=== PATIENT | female | born 1955 | race Caucasian/White ===

== ENCOUNTER 2017-02-23 11:32 | Outpatient (CLI) ==
[2013-05-06 10:41] VITALS: TEMP 98
[2017-02-23 12:05] LABS: CREATININE 1.07 mg/dL (0.60-1.30)
== END 2017-02-23 11:33 | disposition home or self-care (01) ==
LOC: LAB 11:32
PROVIDERS: ATTEND Student in an Organized Health Care Education/Training Program
DX: G56.00 Carpal tunnel syndrome, unspecified upper limb (principal)
CPT/HCPCS: 36415; 82565; 84520

== ENCOUNTER 2017-05-12 11:43 | Inpatient (IN) | payer OTHER ==
[2017-05-12] MEDS ORDERED: TYLENOL PO PRN (12:04)
[2017-05-12] MEDS ORDERED: NITROSTAT SL PRN (12:04)
[2017-05-12] MEDS ORDERED: MORPHINE 4 MG/ML SYRINGE IVP PRN (12:04)
[2017-05-12] MEDS ORDERED: ATROPINE SULFATE PFS IVP PRN (12:04)
[2017-05-12 12:30] LABS: BASOPHILS % (AUTO) 0.4 % (0.0-3.0); EOSINOPHILS # (AUTO) 0.2 K/ul (0.0-0.7); EOSINOPHILS % (AUTO) 5.1 % (0.0-7.0); HEMATOCRIT 34.1 % (37.0-47.0); HEMOGLOBIN 11.4 g/dl (12.0-16.0); IMMATURE GRANULOCYTE % (AUTO) 0.2 % (0.0-5.0); LYMPHOCYTES # (AUTO) 2.4 K/uL (0.60-3.4); LYMPHOCYTES % (AUTO) 52.9 (10.0-50.0); MEAN CORPUSCULAR HEMOGLOBIN 29.6 pg (27.0-31.0); MEAN CORPUSCULAR HGB CONC 33.4 (31.8-35.4); MEAN CORPUSCULAR VOLUME 88.6 fl (81.0-99.0); MONOCYTES # (AUTO) 0.3 K/uL (0.4-2.0); MONOCYTES % (AUTO) 5.5 (0-10); NEUTROPHILS # (AUTO) 1.6 K/ul (2.0-6.9); NEUTROPHILS % (AUTO) 35.9; PLATELET COUNT 215 10^3/uL (140-440); RED BLOOD COUNT 3.85 10^6/ul (4.20-5.40); WHITE BLOOD COUNT 4.54 K/ul (4.6-10.2)
[2017-05-12 12:50] LABS: ALBUMIN 3.9 g/dL (3.4-5.0); ALBUMIN/GLOBULIN RATIO 1.18; BILIRUBIN,TOTAL 0.46 mg/dL (0.00-1.20); CALCIUM 9.4 mg/dL (8.2-10.2); CREATININE 1.5 mg/dL (0.60-1.30); TOTAL PROTEIN 7.2 g/dL (5.8-8.1)
[2017-05-12 13:06] LABS: CREATINE KINASE 124 U/L; MYOGLOBIN 47 ng/ml
[2017-05-12] MEDS: DEXTROSE 5%-1/2NS IV SOLUTION 1,000 ML IV SCH (13:08)
[2017-05-12 13:10] VITALS: BMI 29.9
[2017-05-12] MEDS: NORCO 5-325 PO PRN ×2 (14:17→22:25)
--- NOTE | 2017-05-12 14:18 | DI ---
EXAM: Chest one view HISTORY: Hypotension COMPARISON: 04/18/2016 TECHNIQUE: Single view of the chest was performed FINDINGS: The lungs are clear. There is no pleural effusion or pneumothorax. The heart is normal in size. The mediastinal contour is normal. There are no acute abnormalities of the bones. Bilater al shoulder arthroplasty. Cervical spinal fusion hardware. IMPRESSION: No acute cardiopulmonary process.
--- NOTE | 2017-05-12 14:43 | US ---
EXAM: Renal ultrasound HISTORY: Dehydration, hypotension TECHNIQUE: Dhillon scale and color Doppler imaging of the kidneys was performed. Comparison 11/24/2008. FINDINGS: The right kidney measures 10.3 cm in length. There is no hydronephrosis. There is a sma ll cyst seen within the upper pole of the right kidney measuring 1.1 cm maximum. The left kidney measures 10.7 cm in length. There is no hydronephrosis. Images obtained through the pelvis demonstrate a normal appearance of the urinary bladder. IMPRESSION: There is no obstructive uropathy. Small cyst seen within the upper pole of the right kidney measuring up to 1.1 cm.
--- NOTE | 2017-05-12 14:47 | US ---
EXAM: Ultrasound venous Doppler right and left lower extermity HISTORY: Leg pain COMPARISON: None TECHNIQUE: Venous duplex ultrasound of the right and left lower extremity was performed using color , baker-scale, and Doppler flow imaging. FINDINGS: There is normal color flow and compression of the right and left common femoral, greater saphenous, profunda femoral, femoral, popliteal, peroneal, (right) posterior tibial, and (right) ant erior tibial veins without evidence of intraluminal thrombus. Left anterior tibial and posterior tib ial veins not visualized and left peroneal vein partially visualized. IMPRESSION: No right or left lower extremity deep venous thrombosis at the visualized levels.
[2017-05-12] MEDS ORDERED: NORCO 5-325 PO SCH (21:00)
[2017-05-12 21:22] LABS: TROPONIN I 0.01 ng/ml (0.0000-0.4000)
[2017-05-12] MEDS: VISTARIL INJ IM PRN (22:23)
[2017-05-13] MEDS: DEXTROSE 5%-1/2NS IV SOLUTION 1,000 ML IV SCH ×3 (02:05→13:02)
[2017-05-13 04:26] LABS: BASOPHILS % (AUTO) 0.5 % (0.0-3.0); EOSINOPHILS # (AUTO) 0.3 K/ul (0.0-0.7); EOSINOPHILS % (AUTO) 6.1 % (0.0-7.0); HEMATOCRIT 31.3 % (37.0-47.0); HEMOGLOBIN 10.3 g/dl (12.0-16.0); IMMATURE GRANULOCYTE % (AUTO) 0.2 % (0.0-5.0); LYMPHOCYTES # (AUTO) 2.6 K/uL (0.60-3.4); LYMPHOCYTES % (AUTO) 62.9 (10.0-50.0); MEAN CORPUSCULAR HEMOGLOBIN 29.5 pg (27.0-31.0); MEAN CORPUSCULAR HGB CONC 32.9 (31.8-35.4); MEAN CORPUSCULAR VOLUME 89.7 fl (81.0-99.0); MONOCYTES # (AUTO) 0.3 K/uL (0.4-2.0); MONOCYTES % (AUTO) 6.1 (0-10); NEUTROPHILS % (AUTO) 24.2; PLATELET COUNT 172 10^3/uL (140-440); RED BLOOD COUNT 3.49 10^6/ul (4.20-5.40); WHITE BLOOD COUNT 4.07 K/ul (4.6-10.2)
[2017-05-13 04:47] LABS: ALBUMIN 3.1 g/dL (3.4-5.0); ALBUMIN/GLOBULIN RATIO 1.15; ANION GAP 12.1; BILIRUBIN,TOTAL 0.34 mg/dL (0.00-1.20); BUN/CREATININE RATIO 14.56; CALCIUM 8.6 mg/dL (8.2-10.2); CREATININE 1.51 mg/dL (0.60-1.30); POTASSIUM 4.1 mmol/L (3.5-5.10); TOTAL PROTEIN 5.8 g/dL (5.8-8.1)
[2017-05-13 05:34] LABS: BILIRUBIN,URINE Negative (NEGATIVE); KETONES,URINE Negative (NEGATIVE); LEUKOCYTE ESTERASE ,URINE 1+ (NEGATIVE); NITRITE,URINE Negative (NEGATIVE); PROTEIN,URINE Negative (NEGATIVE); URINE, BLOOD Negative (NEGATIVE)
[2017-05-13 05:35] LABS: ADD URINE MICROSCOPIC YES
[2017-05-13 05:51] LABS: BACTERIA,URINE TRACE (NOT PRESENT)
[2017-05-13] MEDS ORDERED: ASPIRIN EC PO SCH (08:00)
[2017-05-13] MEDS: VISTARIL INJ IM PRN (15:18)
[2017-05-13 15:44] LABS: CREATINE KINASE 69 U/L
[2017-05-14] MEDS: DEXTROSE 5%-1/2NS IV SOLUTION 1,000 ML IV SCH (02:22)
[2017-05-14 04:19] LABS: BASOPHILS % (AUTO) 0.5 % (0.0-3.0); EOSINOPHILS # (AUTO) 0.2 K/ul (0.0-0.7); EOSINOPHILS % (AUTO) 5.1 % (0.0-7.0); HEMATOCRIT 32.1 % (37.0-47.0); HEMOGLOBIN 10.6 g/dl (12.0-16.0); IMMATURE GRANULOCYTE % (AUTO) 0.2 % (0.0-5.0); LYMPHOCYTES # (AUTO) 2.4 K/uL (0.60-3.4); LYMPHOCYTES % (AUTO) 54.1 (10.0-50.0); MEAN CORPUSCULAR HEMOGLOBIN 29.3 pg (27.0-31.0); MEAN CORPUSCULAR VOLUME 88.7 fl (81.0-99.0); MONOCYTES # (AUTO) 0.3 K/uL (0.4-2.0); MONOCYTES % (AUTO) 6.2 (0-10); NEUTROPHILS # (AUTO) 1.5 K/ul (2.0-6.9); NEUTROPHILS % (AUTO) 33.9; PLATELET COUNT 178 10^3/uL (140-440); RED BLOOD COUNT 3.62 10^6/ul (4.20-5.40); WHITE BLOOD COUNT 4.34 K/ul (4.6-10.2)
[2017-05-14 04:45] LABS: ALBUMIN 3.1 g/dL (3.4-5.0); ALBUMIN/GLOBULIN RATIO 1.07; BILIRUBIN,TOTAL 0.25 mg/dL (0.00-1.20); BUN/CREATININE RATIO 13.28; CALCIUM 8.6 mg/dL (8.2-10.2); CREATININE 1.43 mg/dL (0.60-1.30)
[2017-05-14] MEDS ORDERED: ATIVAN PO PRN (10:01)
[2017-05-14] MEDS: VISTARIL INJ IM PRN (10:09)
[2017-05-14] MEDS ORDERED: REGLAN PO STA (13:29)
[2017-05-14] MEDS: ZOFRAN 4 MG/2 ML IVP SCH ×2 (13:40→16:42)
[2017-05-14] MEDS ORDERED: REGLAN PO SCH (17:00)
[2017-05-14] MEDS: CRESTOR PO SCH (21:34)
[2017-05-15 05:39] LABS: BASOPHILS % (AUTO) 0.9 % (0.0-3.0); EOSINOPHILS # (AUTO) 0.3 K/ul (0.0-0.7); EOSINOPHILS % (AUTO) 5.8 % (0.0-7.0); HEMATOCRIT 32.9 % (37.0-47.0); HEMOGLOBIN 10.8 g/dl (12.0-16.0); IMMATURE GRANULOCYTE % (AUTO) 0.2 % (0.0-5.0); LYMPHOCYTES # (AUTO) 2.2 K/uL (0.60-3.4); LYMPHOCYTES % (AUTO) 47.5 (10.0-50.0); MEAN CORPUSCULAR HEMOGLOBIN 28.9 pg (27.0-31.0); MEAN CORPUSCULAR HGB CONC 32.8 (31.8-35.4); MONOCYTES # (AUTO) 0.2 K/uL (0.4-2.0); NEUTROPHILS # (AUTO) 1.9 K/ul (2.0-6.9); NEUTROPHILS % (AUTO) 40.6; PLATELET COUNT 182 10^3/uL (140-440); RED BLOOD COUNT 3.74 10^6/ul (4.20-5.40); WHITE BLOOD COUNT 4.63 K/ul (4.6-10.2)
[2017-05-15 06:03] LABS: ALBUMIN 3.2 g/dL (3.4-5.0); ALBUMIN/GLOBULIN RATIO 1.1; ANION GAP 14.1; BILIRUBIN,TOTAL 0.37 mg/dL (0.00-1.20); BUN/CREATININE RATIO 13.04; CALCIUM 9.1 mg/dL (8.2-10.2); CREATININE 1.38 mg/dL (0.60-1.30); POTASSIUM 4.1 mmol/L (3.5-5.10); TOTAL PROTEIN 6.1 g/dL (5.8-8.1)
[2017-05-15] MEDS: ZOFRAN 4 MG/2 ML IVP SCH ×3 (06:14→17:40)
[2017-05-15] MEDS: PROTONIX PO SCH (06:15)
[2017-05-15] MEDS ORDERED: REGLAN PO SCH (07:30)
[2017-05-15] MEDS: REGLAN PO SCH ×3 (07:39→16:30)
[2017-05-15] MEDS ORDERED: NON-FORMULARY MEDICATION (Esomeprazole Magnesium [Nexium] 40 MG) PO SCH ×22 (09:00)
--- NOTE | 2017-05-15 11:31 | PCM.PROG ---
Attending Provider: ATTENDING PROVIDER: Dr. MARZENA CUEVAS DATE OF SERVICE: 05/15/17 SUBJECTIVE: This 62 year old WHITE/ F was hospitalized 05/12/17. The patient is admitted with hypotension and fatigue. The patient was started on Reglan yesterday. She had vomiting yesterday but has had none since. The patient is scheduled for CT of abdomen and pelvis today. REVIEW OF SYSTEMS CONSTITUTIONAL: Weakness. No night sweats. No fever or chills. HEENT: Eyes: No visual changes. No eye pain. No eye discharge. ENT: No runny nose. No epistaxis. No sinus pain. No odynophagia. No congestion. RESPIRATORY: No cough, no congestion. No hemoptysis. CARDIOVASCULAR: No angina symptoms. No CHF symptoms. No atypical chest pain for CAD. No palpitations. No shortness of breath. GASTROINTESTINAL: No abdominal pain. Nausea. No diarrhea or constipation. No hematemesis. No hematochezia. GENITOURINARY: No urgency. No frequency. No dysuria. No hematuria. No obstructive symptoms. No discharge. No pain. No significant abnormal bleeding. MUSCULOSKELETAL: No musculoskeletal pain; no joint swelling. NEUROLOGICAL: Awake, alert, oriented to time, place and person. No headache. No neck pain. No syncope. No seizures. No dizziness. PSYCHIATRIC: Not anxious. No depression. No suicidal thoughts. No homicidal thoughts. SKIN: No rash. No lesions. No wounds. ENDOCRINE: No unexplained weight loss. No weight gain. HEMATOLOGIC/LYMPHATIC: No anemia. No purpura. No petechiae. No prolonged or excessive bleeding. No palpable lymph nodes. PHYSICAL EXAMINATION: GENERAL: The patient is awake, alert and oriented, lying in bed in no distress. VITAL SIGNS: Temperature 96.6 F, Pulse 46, Respiratory Rate 16, BP 84/51, Pulse Ox 97% HEENT: Head normocephalic, atraumatic. Eyes: Extraocular muscles are intact. Pupils are equal, round and reactive to light and accommodation. Ears: No lesions. Nose appeared normal. Throat: No exudate or erythema. NECK: Supple. No JVD, no carotid bruit. No lymphadenopathy or thyromegaly. LUNGS: Clear to auscultation. Percussion note normal. Chest symmetrical. HEART: S1, S2, no S3. No murmurs. No cyanosis or clubbing. No ascites. Pulses: Dorsalis pedis and posterior tibial pulses +1 to +2 both sides. ABDOMEN: Soft. Non-tender. Bowel sounds active. No CVA tenderness. No mass felt. EXTREMITIES: No edema. Full range of motion of all extremities, equal. Cast on left foot. NEUROLOGIC: No focal deficit. Cranial nerves II through XII are grossly intact. No headache, no double vision or headache. SKIN: Not dry. Intact. Turgor-normal. LYMPHATIC: No palpable lymph nodes/no lymphedema. MUSCULOSKELETAL: Normal joints with no swelling. Muscle tone is normal. LAB REVIEW: 05/15/17 05:10 05/15/17 05:10 05/15/17 05:10: WBC 4.63, RBC 3.74 L, Hgb 10.8 L, Hct 32.9 L, MCV 88.0, MCH 28.9 , MCHC 32.8, RDW Coeff of Eliu 14.6, Plt Count 182, Immature Gran % (Auto) 0.2, Neut % (Auto) 40.6, Lymph % (Auto) 47.5, [place] % (Auto) 5.0, Eos % (Auto) 5.8, Baso % (Auto) 0.9, Immature Gran # (Auto) 0.0, Neut # 1.9 L, Lymph # 2.2, [place] # 0.2 L, Eos # 0.3, Baso # 0.0, Sodium 143, Potassium 4.1, Chloride 110 H, Carbon Dioxide 23, Anion Gap 14.1, BUN 18, Creatinine 1.38 H, Estimated GFR ( MDRD) 39.00, BUN/Creatinine Ratio 13.04, Glucose 112, Calcium 9.1, Total Bilirubin 0.37, AST 9 L, ALT 6 L, Alkaline Phosphatase 92, Total Protein 6.1, Albumin 3.2 L, Globulin 2.9, Albumin/Globulin Ratio 1.10 05/14/17 04:20: TSH 3.516, Free T4 0.71 ASSESSMENT: 1. Hypotension 2. Fatigue 3. Nausea and vomiting 4. Left ankle injury PLAN: 1. CT of abdomen and pelvis today. 2. Will monitor blood pressure. 3. Continue Reglan. Plan and coordination of the patient's care discussed in the presence of Cloth Folder Hand and nurse. CONDITION: Stable SCRIBED BY: TABITHA FIGUEROA, [employer] scribed while in presence of service performed by Dr. MARZENA CUEVAS/RAM[facility]TH APRN on 05/15/17 ([id number])
--- NOTE | 2017-05-15 12:08 | ECHO2D ---
Date of Exam: 05/13/17 Ordering Physician: MARZENA CUEVAS Reason for Echo: ATRIAL FIBRILLATION, DYSLIPIDEMIA, SOB M-Mode Normal Adult Results LV Dimensions Normal Adult Results AoV Opening excursions >1.6 >1.6 LVEDD-base- 3.5-5.8 4.5 Ao root dimensions 2.0-3.7 3.7 LVESD-base- 3.1-4.6 L. Atrium dimensions 1.9-3.8 4.3 Post. Wall thickness 0.8-1.1 1.3 IV septum (thickness) 0.7-1.2 1.3 Post. Wall excursion 0.72-1.3 NORMAL Septal motion NORMAL Systolic motion R. Ventricular cavity 1.5-2.0 NORMAL LVEF 60% 60% Paradoxical septal wall motion NORMAL 2-D : ENLARGED LEFT ATRIAL CAVITY--NORMAL VALVES, NORMAL LEFT VENTRICULAR CONTRACTILITY, NO EFFUSION, NO THROMBUS, NORMAL LEFT VENTRICLE SIZE M-MODE: MV: NORMAL AV: NORMAL TV: NORMAL PV: CHAMBER SIZE: ENLARGED LEFT ATRIAL SIZE WALL MOTION: NORMAL PERICARDIUM: NORMAL INTERPRETATION: 1. LEFT VENTRICULAR HYPERTROPHY WITH ENLARGED LEFT ATRIAL CAVITY 2. NORMAL LEFT VENTRICULAR CONTRACTILITY 3. NORMAL VALVES MTDD
--- NOTE | 2017-05-15 12:10 | CT ---
EXAM: CT Abdomen without contrast. CT Pelvis without contrast. HISTORY: Nausea and vomiting. COMPARISON: 08/08/2015. TECHNIQUE: Multiple axial images of the abdomen and pelvis were obtained without intravenous contra st. Images were reformatted in the coronal plane. FINDINGS: Please note that evaluation of the abdominal and pelvic structures is limited due to lack of intravenous contrast. The lung bases are clear. Degenerative changes present in the spine. There has been previous L5 la minectomy and possibly interbody fusion. The gallbladder is absent. The liver, pancreas, spleen, adrenal glands, and kidneys demonstrate nor mal contour. No calcified renal stones or hydronephrosis identified.. The bowel is normal in course and caliber without evidence for obstruction or inflammatory process. Appendix is not seen. Uterus is absent. Clips noted in the pelvis. Urinary bladder is not well d istended. No free fluid or free air identified. Atherosclerotic calcifications are present IMPRESSION: No acute abnormality in the abdomen or pelvis.
[2017-05-15] MEDS: CRESTOR PO SCH (20:13)
[2017-05-16 04:54] LABS: BASOPHILS % (AUTO) 0.6 % (0.0-3.0); EOSINOPHILS # (AUTO) 0.2 K/ul (0.0-0.7); EOSINOPHILS % (AUTO) 4.3 % (0.0-7.0); HEMATOCRIT 33.8 % (37.0-47.0); HEMOGLOBIN 11.1 g/dl (12.0-16.0); IMMATURE GRANULOCYTE % (AUTO) 0.9 % (0.0-5.0); LYMPHOCYTES # (AUTO) 2.3 K/uL (0.60-3.4); LYMPHOCYTES % (AUTO) 43.3 (10.0-50.0); MEAN CORPUSCULAR HEMOGLOBIN 29.2 pg (27.0-31.0); MEAN CORPUSCULAR HGB CONC 32.8 (31.8-35.4); MEAN CORPUSCULAR VOLUME 88.9 fl (81.0-99.0); MONOCYTES # (AUTO) 0.2 K/uL (0.4-2.0); MONOCYTES % (AUTO) 4.5 (0-10); NEUTROPHILS # (AUTO) 2.5 K/ul (2.0-6.9); NEUTROPHILS % (AUTO) 46.4; PLATELET COUNT 191 10^3/uL (140-440); WHITE BLOOD COUNT 5.38 K/ul (4.6-10.2)
[2017-05-16 05:17] LABS: ALBUMIN 3.2 g/dL (3.4-5.0); ALBUMIN/GLOBULIN RATIO 1.07; ANION GAP 11.8; BILIRUBIN,TOTAL 0.25 mg/dL (0.00-1.20); BUN/CREATININE RATIO 15.43; CALCIUM 8.8 mg/dL (8.2-10.2); CREATININE 1.49 mg/dL (0.60-1.30); POTASSIUM 3.8 mmol/L (3.5-5.10); TOTAL PROTEIN 6.2 g/dL (5.8-8.1)
[2017-05-16] MEDS: ZOFRAN 4 MG/2 ML IVP SCH (06:00)
[2017-05-16] MEDS: PROTONIX PO SCH (06:01)
[2017-05-16] MEDS: REGLAN PO SCH (06:37)
[2017-05-16 09:55] VITALS: BP 98/61; TEMP 98.2
--- NOTE | 2017-05-17 09:40 | CM.DICTOOL ---
ADMISSION: 05/12/17 11:43 DISCHARGE: May 16, 2017 DATE OF SERVICE: 05/16/17 FINAL DIAGNOSIS Hypotension Fatigue Shortness of air Abdominal pain/Nausea GERD Dyslipidemia Left ankle injury, torn ligaments Left TKR Right shoulder surgery Cholecystectomy Appendectomy Lumbar surgery Neck surgery LVH with LVEF 60% LAST VITALS Temp Pulse Resp BP Pulse Ox 98.1 F 60 20 98/58 L 95 05/16/17 05:38 05/16/17 05:38 05/16/17 05:38 05/16/17 05:38 05/16/17 05:38 ACTIVE HOME MEDICATIONS Acetaminophen/Hydrocodone Bitart ([place] 5-325) 1 tab PO BID PRN PRN Reason: pain Last Admin: 05/12/17 22:25 Dose: 1 tab Lorazepam (Ativan) 1 mg PO BID PRN PRN Reason: Anxiety Last Admin: 05/14/17 10:09 Dose: 1 mg Nitroglycerin (Nitrostat) 0.4 mg SL Q5MIN X 3 DOSES PRN PRN Reason: Chest Pain Last Admin: 05/13/17 15:15 Dose: 0.4 mg Esomeprazole Magnesium (Nexium) 40 mg Daily Last Admin: Rosuvastatin Calcium (Crestor) 40 mg PO BEDTIME BLAINE Last Admin: 05/15/17 20:13 Dose: 40 mg ALLERGIES aspirin Adverse Reaction (Verified 03/03/16 21:01) codeine Adverse Reaction (Verified 03/03/16 21:01) venom-honey bee [bee venom (honey bee)] Adverse Reaction (Verified 03/03/16 21: 01) NEW PRESCRIPTIONS: Reglan 5 mg TID before meals and at bedtime SMOKING: Not Applicable DISEASE SPECIFIC EDUCATION: New medication Hypotension Outpatient testing Physician follow-up LAB REVIEW: 05/16/17 04:55 05/16/17 04:55 05/16/17 04:55: WBC 5.38, RBC 3.80 L, Hgb 11.1 L, Hct 33.8 L, MCV 88.9, MCH 29.2 , MCHC 32.8, RDW Coeff of Eliu 14.6, Plt Count 191, Immature Gran % (Auto) 0.9, Neut % (Auto) 46.4, Lymph % (Auto) 43.3, [place] % (Auto) 4.5, Eos % (Auto) 4.3, Baso % (Auto) 0.6, Immature Gran # (Auto) 0.1, Neut # 2.5, Lymph # 2.3, [place] # 0.2 L, Eos # 0.2, Baso # 0.0, Sodium 142, Potassium 3.8, Chloride 110 H, Carbon Dioxide 24, Anion Gap 11.8, BUN 23 H, Creatinine 1.49 H, Estimated GFR (MDRD) 36.00, BUN/Creatinine Ratio 15.43, Glucose 123 H, Calcium 8.8, Total Bilirubin 0.25, AST 11 L, ALT 9 L, Alkaline Phosphatase 98, Total Protein 6.2, Albumin 3.2 L, Globulin 3.0, Albumin/Globulin Ratio 1.07 05/16/17 04:10: TSH 4.411, Free T4 0.67 PLAN: Discharge home Diet: Heart Healthy Activity: Gradually resume as tolerated. Avoid sudden position changes if dizzy Stop the following medication for now: Levothyroxine Continue medications as listed on nursing discharge information sheet Please call to schedule an appointment with Dr. Groves for next week (Monday or Monday) You are scheduled for an outpatient Renal Doppler Flow study on May 17 at 12: [address] [facility]. Please come to outpatient registration to register about 12:15 pm.. Nothing to eat or drink after midnight tonight. An outpatient Dobutamine Stress Echo will be scheduled for you. You will be advised of the appointmen date and time tomorrow. Ms. Gonzáles is alert and oriented x 3. She has been ambulatory without use of assistive device during her hospital stay. She uses a knee walker at home with ambulation. She is independent with ADL's. Meal intake has been good at 75-100 %. No nausea or abdominal pain reported. Skin is in good condition. No decubitus ulcers, rashes or irritation noted. A walking cast is present to the RLE due to torn ligaments in her ankle. Shubham Groves MD Paty Montalvo APRN
--- NOTE | 2017-05-18 13:10 | DS ---
DATE OF SERVICE: 05/16/17 FINAL DIAGNOSIS: 1. Dehydration with chronic kidney disease 2. Hypotension 3. Gastritis 4. Anemia 5. Chest pain, atypical 6. Severe Dyslipidemia 7. History of hypertension DISCHARGE INSTRUCTIONS: Discharge home. Stop Levothyroxine. Continue medications as listed on nursing discharge information sheet. See Dr. Groves next week. MEDICATIONS AT DISCHARGE: Ativan 1mg twice a day Metoclopramide 5mg three times a day before meals and at night Hydrocodone at before Zofran as needed Nitroglycerin PRN Rosuvastatin 40mg PO daily Nexium 40mg PO daily ALLERGIES: Aspirin Codeine Venom-honey bee NEW PRESCRIPTIONS: Reglan 5mg three times a day before meals and at bedtime DIET INSTRUCTIONS: Heart healthy ACTIVITY: Gradually resume as tolerated. Avoid sudden position changes if dizzy. SMOKING: Not applicable DISEASE SPECIFIC EDUCATION: New medication Hypotension Outpatient testing Physician followup LABS: Hgb 11.1, hct 33, WBC 5,300 normal differential, creatinine 1.49, BUN 23, Potassium 3.8, T4 TSH normal, BNP 20 and GFR 36cc per minute. HOSPITAL COURSE: The patient is a 62 year old white female hospitalized with hypotension, fatigue , dehydration, atypical symptoms of coronary insufficiency. The patient was monitored and she had bradycardiac which stayed that way. The patient was taken off all hypertensive medication in fact she was taken off all medications. She developed nausea and vomiting after each meal which was controlled with Reglan. The patient was started on proton pump inhibitor. The patient's condition improved. Her blood pressure stayed around 100 systolic. The patient's other problems are anxiety related to family problems. She does not have suicidal or homicidal tendency. her behavior was normal and appropriate and reasonable. The patient was scheduled for renal flow study and also for Dobutamine stress echo. The patient's echocardiogram showed normal LV contractility with LVH with enlarged LA cavity. CONDITION: Stable. TIME SPENT: More than 60 minutes. [facility]
--- NOTE | 2017-05-18 13:54 | PN ---
05/12/17: Level 5 05/13/17: Intermediate 05/14/17: Intermediate 05/15/17: Intermediate 05/16/17: D as in discharge MTDD
--- NOTE | 2017-05-18 14:22 | PN ---
DATE OF SERVICE: 05/16/17 SUBJECTIVE: The patient is a 62 year old white female hospitalized with hypotension, fatigue and atypical chest pain. The patient's underlined problem seems to be non-compliance and a lot of stress at home. The patient was also dehydrated. The patient in the hospital was treated with IV hydration. The patient's kidney function remained still somewhat abnormal with creatinine of 1.4 and BUN of 23. The patient felt a lot better and her nauseas and vomiting after each meal had subsided for at least 48 hours before discharge. REVIEW OF SYSTEMS: CONSTITUTIONAL: No night sweats. No fatigue, malaise, lethargy. No fever or chills. Mild weakness. HEENT: Eyes: No visual changes. No eye pain. No eye discharge. ENT: No runny nose. No epistaxis. No sinus pain. No sore throat. No odynophagia. No congestion. RESPIRATORY: No cough, no congestion. No hemoptysis. CARDIOVASCULAR: No angina symptoms. No CHF symptoms. No atypical chest pain for CAD. No palpitations. No shortness of breath. GASTROINTESTINAL: No abdominal pain. Nausea at times which has been responding to treatment. No diarrhea or constipation. No hematemesis. No hematochezia. GENITOURINARY: No urgency. No frequency. No dysuria. No hematuria. No obstructive symptoms. No discharge. No pain. No significant abnormal bleeding. MUSCULOSKELETAL: No musculoskeletal pain; no joint swelling. NEUROLOGICAL: No headache. No neck pain. No syncope. No seizures. No dizziness. PSYCHIATRIC: Not anxious. No depression. No suicidal thoughts. No homicidal thoughts. SKIN: No rash. No lesions. No wounds. ENDOCRINE: No unexplained weight loss. No weight gain. HEMATOLOGIC/LYMPHATIC: No anemia. No purpura. No petechiae. No prolonged or excessive bleeding. No palpable lymph nodes. PHYSICAL EXAMINATION: GENERAL: The patient is oriented to time, place and person. VITAL SIGNS: Temperature 98, pulse 60, respiratory rate 20 and blood pressure 100/60 with pulse ox 95%. HEENT: Head normocephalic, atraumatic. Eyes: Extraocular muscles are intact. Pupils are equal, round and reactive to light and accommodation. Ears: No lesions. Nose appeared normal. Throat: No exudate or erythema. NECK: Supple. No JVD, no carotid bruit. No lymphadenopathy or thyromegaly. LUNGS: Decreased breath sounds but clear to auscultation. Percussion note normal. Chest symmetrical. HEART: S1, S2, no S3. No murmurs. No cyanosis or clubbing. No ascites. Pulses: Dorsalis pedis and posterior tibial pulses +1 to +2 both sides. ABDOMEN: Soft. Nontender. Bowel sounds active. No CVA tenderness. No mass felt. EXTREMITIES: No edema. Full range of motion of all extremities, equal. NEUROLOGIC: No focal deficit. Cranial nerves II through XII are grossly intact. No headache, no double vision or headache. SKIN: Not dry. Intact. Turgor - normal. LYMPHATIC: No palpable lymph nodes/no lymphedema. MUSCULOSKELETAL: Normal joints with no swelling. Muscle tone is normal. LABS: hgb 11.1, hct 33, WBC 5,300 normal differential, creatinine 1.4, BUN 23, potassium 4.8. ASSESSMENT: 1. Hypertension, seems to be under control 2. Dehydration seems to be resolving 3. Chest pain, atypical is going to be worked up with Dobutamine Stress echo tomorrow. PLAN: 1. Sent home patient on Reglan. Side effects discussed. Reglan will be given for 10-15mg 2. Resume all the medication 3. Crestor 4. Nexium 5. No antihypertensive medications. TIME SPENT: More than 30 minutes. Plan and coordination of the patient's care discussed in the presence of nurse. RIANA
--- NOTE | 2017-05-18 14:30 | PN ---
DATE OF SERVICE: 05/14/17 SUBJECTIVE: The patient is a 62 year old white female hospitalized with hypotension, fatigue and chest pain. The patient's hypotension is somewhat stable. Her systolic is 100 and she feels somewhat better but lately now she has developed some nausea especially after meals. She feels nauseated and has been vomiting. REVIEW OF SYSTEMS: CONSTITUTIONAL: No night sweats. No fatigue, malaise, lethargy. No fever or chills. Still has some weakness but much better. HEENT: Eyes: No visual changes. No eye pain. No eye discharge. ENT: No runny nose. No epistaxis. No sinus pain. No sore throat. No odynophagia. No congestion. RESPIRATORY: No cough, no congestion. No hemoptysis. CARDIOVASCULAR: No angina symptoms. No CHF symptoms. Atypical chest pain. EKG was normal and done yesterday. No palpitations. No shortness of breath. GASTROINTESTINAL: No abdominal pain. Nausea especially after meals. No diarrhea or constipation. No hematemesis. No hematochezia. GENITOURINARY: No urgency. No frequency. No dysuria. No hematuria. No obstructive symptoms. No discharge. No pain. No significant abnormal bleeding. MUSCULOSKELETAL: No musculoskeletal pain; no joint swelling. NEUROLOGICAL: No headache. No neck pain. No syncope. No seizures. No dizziness. PSYCHIATRIC: Not anxious. No depression. No suicidal thoughts. No homicidal thoughts. SKIN: No rash. No lesions. No wounds. ENDOCRINE: No unexplained weight loss. No weight gain. HEMATOLOGIC/LYMPHATIC: No anemia. No purpura. No petechiae. No prolonged or excessive bleeding. No palpable lymph nodes. PHYSICAL EXAMINATION: GENERAL: The patient is oriented to time, place and person. VITAL SIGNS: Temperature 97.9, pulse 50, respiratory rate 14, blood pressure 98 /61 and pulse 92%. HEENT: Head normocephalic, atraumatic. Eyes: Extraocular muscles are intact. Pupils are equal, round and reactive to light and accommodation. Ears: No lesions. Nose appeared normal. Throat: No exudate or erythema. NECK: Supple. No JVD, no carotid bruit. No lymphadenopathy or thyromegaly. LUNGS: Clear to auscultation. Percussion note normal. Chest symmetrical. HEART: S1, S2, no S3. No murmurs. No cyanosis or clubbing. No ascites. Pulses: Dorsalis pedis and posterior tibial pulses +1 to +2 both sides. ABDOMEN: Soft. Nontender. Bowel sounds active. No CVA tenderness. No mass felt. EXTREMITIES: No edema. Full range of motion of all extremities, equal. NEUROLOGIC: No focal deficit. Cranial nerves II through XII are grossly intact. No headache, no double vision or headache. SKIN: Not dry. Intact. Turgor - normal. LYMPHATIC: No palpable lymph nodes/no lymphedema. MUSCULOSKELETAL: Normal joints with no swelling. Muscle tone is normal. LABS: hgb 10.6, hct 32, WBC 4,300 normal differential, creatinine 1.4, BUN 19, potassium 4. ASSESSMENT: 1. Hypotension, seems to be somewhat better 2. Dehydration seems to be improving 3. Kidney functions with CKD stage 3 seems to be improving 4. Chest pain, atypical sharp unrelated to exertion. EKG was sinus rhythm. No acute changes 5. Bradycardia persists. PLAN: 1. Will do CT scan of the abdomen without contrast because of abnormal kidney function 2. The patient's CK-MB on admission was negative. 3. Will start the patient on Crestor and Ativan 4. Continue Protonix CONDITION: Stable A lot of the patient's problems are related to her anxiety and family problems. The patient is somewhat depressed but no suicidal or homicidal tendency. TIME SPENT: More than 30 minutes. Plan and coordination of the patient's care discussed in the presence of nurse. RIANA
--- NOTE | 2017-05-18 15:00 | PN ---
DATE OF SERVICE: 05/13/17 SUBJECTIVE: The patient is a 82 year old white female hospitalized with fatigue, chest pain and hypotension. So far the patient's work up is negative. Her cardiac status is stable with no evidence of acute marker event. REVIEW OF SYSTEMS: CONSTITUTIONAL: No night sweats. Still fatigued but somewhat better. No fever or chills. HEENT: Eyes: No visual changes. No eye pain. No eye discharge. ENT: No runny nose. No epistaxis. No sinus pain. No sore throat. No odynophagia. No congestion. RESPIRATORY: No cough, no congestion. No hemoptysis. CARDIOVASCULAR: No angina symptoms. No CHF symptoms. No atypical chest pain for CAD. No palpitations. No shortness of breath. GASTROINTESTINAL: No abdominal pain. No nausea or vomiting. No diarrhea or constipation. No hematemesis. No hematochezia. GENITOURINARY: No urgency. No frequency. No dysuria. No hematuria. No obstructive symptoms. No discharge. No pain. No significant abnormal bleeding. MUSCULOSKELETAL: No musculoskeletal pain; no joint swelling. NEUROLOGICAL: No headache. No neck pain. No syncope. No seizures. No dizziness. PSYCHIATRIC: Anxious because of family problems. Depression. No suicidal thoughts. No homicidal thoughts. SKIN: No rash. No lesions. No wounds. ENDOCRINE: No unexplained weight loss. No weight gain. HEMATOLOGIC/LYMPHATIC: No anemia. No purpura. No petechiae. No prolonged or excessive bleeding. No palpable lymph nodes. PHYSICAL EXAMINATION: GENERAL: The patient is oriented to time, place and person. VITAL SIGNS: Temperature 97.6, pulse 50, respiratory rate 20, blood pressure 116/68 and pulse ox 97%. HEENT: Head normocephalic, atraumatic. Eyes: Extraocular muscles are intact. Pupils are equal, round and reactive to light and accommodation. Ears: No lesions. Nose appeared normal. Throat: No exudate or erythema. NECK: Supple. No JVD, no carotid bruit. No lymphadenopathy or thyromegaly. LUNGS: Clear to auscultation. Percussion note normal. Chest symmetrical. HEART: S1, S2, no S3. No murmurs. No cyanosis or clubbing. No ascites. Pulses: Dorsalis pedis and posterior tibial pulses +1 to +2 both sides. ABDOMEN: Soft. Nontender. Bowel sounds active. No CVA tenderness. No mass felt. EXTREMITIES: No edema. Full range of motion of all extremities, equal. NEUROLOGIC: No focal deficit. Cranial nerves II through XII are grossly intact. No headache, no double vision or headache. SKIN: Not dry. Intact. Turgor - normal. LYMPHATIC: No palpable lymph nodes/no lymphedema. MUSCULOSKELETAL: Normal joints with no swelling. Muscle tone is normal. LABS: hgb 10.3, hct 31, WBC 4,700 normal differential, creatinine 1.5, BUN 22, potassium 4.1, BNP 20 which normal and T4 TSH normal. ASSESSMENT: 1. Hypertension seems to be resolving 2. Dehydration seems to be somewhat better with good skin turgor 3. Chest pain, atypical 4. Anemia 5. Generalized anxiety disorder PLAN: 1. Continue the same medications 2. IV fluids 3. Monitor CBC and CMP 4. No medication for now, the patient has been on Rosuvastatin, Levothyroxine, Lorazepam CONDITION: Stable. The patient had echocardiogram done today which showed LVH, normal LV contractility and enlarged LA cavity. The patient may need stress test. At the present time she doesn't have strength to undergo that. TIME SPENT: More than 30 minutes. Plan and coordination of the patient's care discussed in the presence of nurse. RIANA
--- NOTE | 2017-05-18 15:51 | HP ---
DATE OF SERVICE: 05/12/17 REASON FOR HOSPITALIZATION/HISTORY OF PRESENT ILLNESS: Seen yesterday- Hypotension. Seen at [place] Wednesday 05/09 for hypotension. Feels weak, tired and short of breath. Occasional sharp chest pain. No symptoms of CHF. 04/2007 Screws and rods=ankle (4 pins) REVIEW OF SYSTEMS: CONSTITUTIONAL: No fever, Fatigue. HEENT: No sinus drainage, no sore throat. RESPIRATORY: No cough, no congestion. CARDIOVASCULAR: Atypical chest pain for coronary artery disease. No angina, CHF symptoms, palpitations. Shortness of breath. GASTROINTESTINAL: No melena or abdominal pain. No GERD. GENITOURINARY: No hematuria, no prostatism, no polyuria. MUSHROOM SORTER GRADER: No blackout, no dizziness, no headache, no double vision. MUSCULOSKELETAL: Osteoarthritis pain, no joint swelling. ENDOCRINE: No weight loss, no weight gain. SKIN: Dry, no rash. PSYCHIATRIC: Anxious, no depression, no suicidal thoughts, no homicidal thoughts. SOCIAL HISTORY: Marital Status: . Alcohol Usage: No. Tobacco Usage: No. FAMILY HISTORY: Father, cancer Mother living Brothers: 2 one had diabetes Mellitus Sister: one COPD SURGICAL HISTORY: Hysterectomy 20 years ago Bladder surgeryx3 Left foot surgery x2 Back surgery x2 1987 and 1988 Left shoulder 2000 Right shoulder x3 Fatty tumor Gallbladder Neck Surgery Left knee partial replacement Bilateral CT hand surgery MEDICAL HISTORY: Cardiac Hypertension Back problems Bladder problems MEDICATIONS: Synthroid 50mcg PO daily Crestor 40mg PO bedtime Ativan 1mg PO twice a day PRN Nitrostat 0.4mg SL Q 5min X3 doses PRN Nexium 40mg PO daily [place] 5-325 one tablet PO twice a day PRN ALLERGIES: Codeine ASA PHYSICAL EXAMINATION: V/S: Pulse 73, Blood pressure 98/56 left and 92/54 right. O2Sat 98%. GENERAL APPEARANCE: Oriented times three. Pallor positive. HEENT: Normal. NECK: No JVP, no bruits. RESPIRATORY: Lungs are clear. CARDIOVASCULAR: S1, S2, no S3, no murmurs. No cyanosis, clubbing. No ascites. GI/ABDOMEN: No tenderness. Bowel sounds are active. EXTREMITIES: edema, pulses +1, equal.Dr. Wong put another cast today on left leg. Cast on left leg. Calf patch. MUSHROOM SORTER GRADER: Deep tendon reflexes, sensory, motor and gait all normal. PELVIC: Pap smear advised hysterectomy 20 years ago. Mammogram 11/18-04/28 . ASSESSMENT: 1. Hypotension 2. Fatigue 3. Chest pain, sharp atypical 4. Dehydration 5. Status post left ankle surgery 04/29 Dr. Wong with screws and plates. 6. History of hypertension 7. Dyslipidemia 8. Hyperlipidemia 9. 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 Hypothyroidism 18. Back surgery x2 19. Pain management Dr. Purvis - neck shots 20. Dr. Wong said no Drewabhijeetluis took her off today. 21. Chronic kidney disease. PLAN: 1. Admit 2. Routine Telemetry orders 3. 1000cc D5/ 1/2 normal saline 12 hours 4. BNP, T4 and TSH 5. Echocardiogram 2DM Mode 6. Daily CBC and CMP 7. Ultrasound of Kidneys 8. [place] 5-325mg twice a day PRN 9. Elevate legs 10.Venous Scan of lower extremities ADDENDUM: Ultrasound of kidney's normal like cyst in the upper. Venous Doppler of both lower extremities no DVT. Chest x-ray normal. BNP 20 normal. T4TSH normal, Cardiac markers negative. Creatinine 1.5, BUN 18, liver profile negative, hgb 11.4, hct 34 and WBC 4,500. TIME SPENT: More than 70 minutes. MTDD
--- NOTE | 2017-05-22 14:37 | PN ---
DATE OF SERVICE: 05/15/17 SUBJECTIVE: The patient is a 62 year old white female hospitalized with fatigue, tired feeling and hypotension. The patient's condition has steadily improved except for the patient has nausea. The patient has nausea with vomiting after her meals. The patient will undergo CT scan of the abdomen without contrast. Her kidney functions are abnormal and her blood pressure is still running on the lower side. REVIEW OF SYSTEMS: CONSTITUTIONAL: No night sweats. No fatigue, malaise, lethargy. No fever or chills. HEENT: Eyes: No visual changes. No eye pain. No eye discharge. ENT: No runny nose. No epistaxis. No sinus pain. No sore throat. No odynophagia. No congestion. RESPIRATORY: No cough, no congestion. No hemoptysis. CARDIOVASCULAR: No angina symptoms. No CHF symptoms. No atypical chest pain for CAD. No palpitations. No shortness of breath. GASTROINTESTINAL: No abdominal pain. No nausea or vomiting. No diarrhea or constipation. No hematemesis. No hematochezia. GENITOURINARY: No urgency. No frequency. No dysuria. No hematuria. No obstructive symptoms. No discharge. No pain. No significant abnormal bleeding. MUSCULOSKELETAL: No musculoskeletal pain; no joint swelling. NEUROLOGICAL: No headache. No neck pain. No syncope. No seizures. No dizziness. PSYCHIATRIC: Not anxious. No depression. No suicidal thoughts. No homicidal thoughts. SKIN: No rash. No lesions. No wounds. ENDOCRINE: No unexplained weight loss. No weight gain. HEMATOLOGIC/LYMPHATIC: No anemia. No purpura. No petechiae. No prolonged or excessive bleeding. No palpable lymph nodes. PHYSICAL EXAMINATION: HEENT: Head normocephalic, atraumatic. Eyes: Extraocular muscles are intact. Pupils are equal, round and reactive to light and accommodation. Ears: No lesions. Nose appeared normal. Throat: No exudate or erythema. NECK: Supple. No JVD, no carotid bruit. No lymphadenopathy or thyromegaly. LUNGS: Clear to auscultation. Percussion note normal. Chest symmetrical. HEART: S1, S2, no S3. No murmurs. No cyanosis or clubbing. No ascites. Pulses: Dorsalis pedis and posterior tibial pulses +1 to +2 both sides. ABDOMEN: Soft. Nontender. Bowel sounds active. No CVA tenderness. No mass felt. EXTREMITIES: No edema. Full range of motion of all extremities, equal. NEUROLOGIC: No focal deficit. Cranial nerves II through XII are grossly intact. No headache, no double vision or headache. SKIN: Not dry. Intact. Turgor - normal. LYMPHATIC: No palpable lymph nodes/no lymphedema. MUSCULOSKELETAL: Normal joints with no swelling. Muscle tone is normal. LABS: Echocardiogram showed LVH with normal LV contractility. Labs are normal and unchanged and somewhat better. Kidney functions. Hydration status has improved. CONDITION: Stable. TIME SPENT: More than 30 minutes. Plan and coordination of the patient's care discussed in the presence of nurse. RIANA
== END 2017-05-16 10:37 | disposition home or self-care (01) | DRG 641 ==
LOC: MEDSURG A 11:43
PROVIDERS: ADMIT Internal Medicine; ATTEND Internal Medicine
DX: E86.0 Dehydration (principal); N18.9 Chronic kidney disease, unspecified; I95.9 Hypotension, unspecified; R07.9 Chest pain, unspecified; I51.7 Cardiomegaly; D64.9 Anemia, unspecified; R00.1 Bradycardia, unspecified; E78.5 Hyperlipidemia, unspecified; I10 Essential (primary) hypertension; R06.02 Shortness of breath; I12.9 Hypertensive chronic kidney disease with stage 1 through stage 4 chronic kidney disease, or unspecified chronic kidney disease; R60.0 Localized edema; F41.1 Generalized anxiety disorder; K29.70 Gastritis, unspecified, without bleeding; S99.912A Unspecified injury of left ankle, initial encounter; Z63.9 Problem related to primary support group, unspecified; Z79.899 Other long term (current) drug therapy
CPT/HCPCS: 36415; 76770; 80053; 81001; 82550; 82553; 83874; 83880; 84439; 84443; 84484; 85025; 87086; 93005; 93010

== ENCOUNTER 2017-05-17 11:46 | Outpatient (CLI) ==
[2013-05-06 10:41] VITALS: TEMP 98
--- NOTE | 2017-05-17 13:02 | US ---
EXAM: Ultrasound renal Doppler. HISTORY: Hypertension. COMPARISON: None available. TECHNIQUE: Dhillon-scale and color Doppler images. FINDINGS: Right kidney measures 10.3 cm in length. There is no hydronephrosis. Peak systolic velocity measurement in the right renal artery are 1.8, 1.4 and 1.0 meters per second in the origin, midportion and distal portion respectively. Right renal artery to aortic ratios mitch ure 2.5, 2.0, 1.4. Right renal resistive index measures 0.47. Left kidney measures 10.7 cm in length. There is no hydronephrosis. Peak systolic velocity measurements in the left renal artery are 1.0, 1.3 and 1.6 meters per second in the origin, midportion and distal portion respectively. Left renal artery to aortic ratios measu re 1.4, 1.8 and 2.2. Left renal resistive index measures 0.78. Venous outflow is seen bilaterally. IMPRESSION: 1. Mildly elevated velocity in the right renal artery origin could be due to hemodynamically signif icant stenosis. 2. No evidence for hemodynamically significant left renal artery stenosis.
== END 2017-05-17 11:47 | disposition home or self-care (01) ==
LOC: RAD 11:46
PROVIDERS: ATTEND Internal Medicine
DX: I10 Essential (primary) hypertension (principal); R94.4 Abnormal results of kidney function studies; R79.89 Other specified abnormal findings of blood chemistry

== ENCOUNTER 2017-05-22 06:46 | Outpatient (CLI) ==
[2017-05-22] MEDS ORDERED: DOBUTAMINE IV ONE (07:26)
--- NOTE | 2017-05-22 11:19 | ECHOSTRESS ---
Date of Exam: 05/22/17 Ordering Physician: MARZENA CUEVAS Reason for Echo: CHEST PAIN, MVP, DOBUTAMINE STRESS TEST--NO ISCHEMIA M-Mode Normal Adult Results LV Dimensions Normal Adult Results AoV Opening excursions >1.6 LVEDD-base- 3.5-5.8 Ao root dimensions 2.0-3.7 LVESD-base- 3.1-4.6 L. Atrium dimensions 1.9-3.8 Post. Wall thickness 0.8-1.1 IV septum (thickness) 0.7-1.2 Post. Wall excursion 0.72-1.3 Septal motion Systolic motion R. Ventricular cavity 1.5-2.0 LVEF 60% Paradoxical septal wall motion 2-D: NORMAL LEFT VENTRICULAR CONTRACTILITY--RESTING AND WITH DOBUTAMINE INFUSION M-MODE: MV: AV: TV: PV: CHAMBER SIZE: WALL MOTION: NORMAL LEFT VENTRICULAR CONTRACTILITY--RESTING AND WITH DOBUTAMINE INFUSION PERICARDIUM: INTERPRETATION: 1. NORMAL LEFT VENTRICULAR CONTRACTILITY--RESTING AND WITH DOBUTAMINE INFUSION MTDD
--- NOTE | 2017-05-22 11:30 | DOBSTECHO ---
Ordering Physician: MARZENA CUEVAS Date of Test: 05/22/17 Reason for Examination: CHEST PAIN, MVP Current Medications: CRESTOR, ATIVAN, NITROSTAT, NEXIUM, NORCO, REGLAN Height: 66" Weight: 186 LBS Target Heart Rate: 135/159 ST Segment Stage Time HR BPM BP mmhg Rhythm +/- Up Down Comments/Symptoms Control Sitting 43 132/80 SR X NONE Dobutamine 250mg/D5W 5cmg/KG/mn 10cmg/KG/mn 3" 79 162/84 SR X NONE 15cmg/KG/mn 2" 96 SR X NONE 20cmg/KG/mn 2" 118 154/70 SR X NONE 25cmg/KG/mn 2" 126 SR X NONE 30cmg/KG/mn 2" 130 142/68 SR X NONE 35cmg/KG/mn :14 141 SR X NONE 40cmg/KG/mn Time: 5" HR B/P Time: 8" HR B/P Time: 11" HR B/P Recovery 108 136/84 Recovery 88 Recovery 72 Total Time: 11:14 Maximum Heart Rate Reached: 88 Interpretation: 98% OXYGEN SATURATION ON ROOM AIR 1. TEST NEGATIVE FOR ISCHEMIC ST-T WAVE CHANGES 2. NO CHEST PAIN OR CHEST DISCOMFORT 3. NORMAL LEFT VENTRICULAR CONTRACTILITY--RESTING AND WITH DOBUTAMINE INFUSION 4. BLOOD PRESSURE RESPONSE ADEQUATE MTDD
== END 2017-05-22 06:47 | disposition home or self-care (01) ==
LOC: CAR 06:46
PROVIDERS: ATTEND Internal Medicine
DX: R07.9 Chest pain, unspecified (principal)

== ENCOUNTER 2017-08-16 17:35 | Emergency (ER) ==
[2017-08-16 17:48] VITALS: BP 155/93; TEMP 99; BMI 28.2
--- NOTE | 2017-08-16 18:10 | ED.PDOC ---
General ED Provider: Dr. AISHA LEONARDO Chief Complaint: Bite Stated Complaint: POSSIBLE INSECT BITE RIGHT INDEX Time Seen by Physician: 17:40 (PT SEEN WITH JOSE COREA RN AT ALL TIMES ) Information Source: Patient Exam Limitations: No limitations Primary Care Provider: MARZENA CUEVAS Referred to ED by: Other (SHE THINKS AN INSECT BITTEN RIGHT INDEX ON BLOOD THINNER ) Nursing and Triage Documentation Reviewed and Agree: Yes (SEE PHOTOS) Trauma/Injury Complaint Exam - Bite Injury Complaint/Exam Location of Bite: 3 DAYS RIGHT INDEX SEE PHOTOS Bite Occured: RIGHT INDEX SEE PHOTOS Symptoms Are: Still present Animal Immunized: Reports: No Initial Severity: Mild Current Severity: Mild Character: Reports: Puncture Aggravating: Reports: None Alleviating: Reports: None Associated Signs and Symptoms: Reports: Erythema, Swelling. Denies: Fever, Drainage, Lymphadenopathy, Numbness, Tingling, Limited ROM Related History: Reports: Unprovoked Animal Available for Observation: No Animal Control Notified: No Infection/Sepsis Risk Factors: Present: None Bite Findings: Present: Erythema, Swelling Drainage: Present: None Differential Diagnoses: Puncture Review of Systems - Review Of Systems Constitutional: Reports: No symptoms Eyes: Reports: No symptoms Ears, Nose, Mouth, Throat: Reports: No symptoms Respiratory: Reports: No symptoms Cardiac: Reports: No symptoms GI: Reports: No symptoms : Reports: No symptoms Musculoskeletal: Reports: No symptoms Skin: Reports: Other (RIGHT INDEX BLISTER ) Neurological: Reports: No symptoms Endocrine: Reports: No symptoms Hematologic/Lymphatic: Reports: No symptoms All Other Systems: Reviewed and Negative Past Medical History - Past Medical History Previously Healthy: Yes Endocrine: Reports: Hypothyroid, Dyslipidemia Cardiovascular: Reports: Hypertension Respiratory: Reports: None Hematological: Reports: None Gastrointestinal: Reports: GERD Genitourinary: Reports: None Neuro/Psych: Reports: Anxiety Musculoskeletal: Reports: None Cancer: Reports: None Last Menstrual Period: menopause Other Pertinent Past Medical History: MVP - Surgical History General Surgical History: Reports: Hysterectomy, Appendectomy, Cholecystectomy, Orthopedic (Rt gr toe surgery 09/02/14) - Family History Family History: Reports: Unknown - Social History Smoking Status: Never smoker Hx Substance Use: No Alcohol Screening: None - Immunizations Tetanus Shot up to Date: Yes Physical Exam - Physical Exam Appearance: Well-appearing, No pain distress, Well-nourished Eyes: JEAN CARLOS, EOMI, Conjunctiva clear ENT: Ears normal, Nose normal, Oropharynx normal Respiratory: Airway patent, Breath sounds clear, Breath sounds equal, Respirations nonlabored Cardiovascular: RRR, Pulses normal, No rub, No murmur GI/: Soft, Nontender, No masses, Bowel sounds normal, No Organomegaly Musculoskeletal: Normal strength, ROM intact, No edema, No calf tenderness Skin: Warm, Dry (RIGHT INDEX BLISTER SEE PHOTOS) Neurological: Sensation intact, Motor intact, Reflexes intact, Cranial nerves intact, Alert, Oriented Psychiatric: Affect appropriate, Mood appropriate Critical Care Note - Critical Care Note Total Time (mins): 0 Course - Course Vital Signs: Temp Pulse Resp BP Pulse Ox 08/16/17 17:35 99 F 75 20 155/93 H 95 Departure - Departure Time of Disposition: 18:11 Disposition: HOME SELF-CARE Discharge Problem: Insect bite Qualifiers: Encounter type: initial encounter Qualified Code(s): W57.XXXA - Bitten or stung by nonvenomous insect and other nonvenomous arthropods, initial encounter Instructions: Insect Bite or Sting (ED), Puncture Wound (ED) Condition: Good Pt referred to PMD for follow-up: Yes Additional Instructions: Please call your Family Physician as soon as possible to schedule a follow-up appointment. Allergies/Adverse Reactions: Allergies aspirin Adverse Reaction (Verified 08/16/17 17:44) Pt states high dosage only. Can take baby aspirin. codeine Adverse Reaction (Verified 08/16/17 17:44) venom-honey bee [bee venom (honey bee)] Adverse Reaction (Verified 08/16/17 17: 44) Home Medications: Ambulatory Orders Lorazepam [Ativan] 1 mg PO BID PRN 05/06/13 Rosuvastatin Calcium [Crestor] 40 mg PO BEDTIME 05/06/13 Nitroglycerin [Nitrostat] 0.4 mg SL Q5MIN X 3 DOSES PRN 03/12/15 Esomeprazole Magnesium [Nexium] 40 mg PO DAILY 02/27/16 Hydrocodone Bit/Acetaminophen [[place] 5-325] 1 tab PO BID PRN 05/12/17 Citalopram Hydrobromide [Citalopram HBr] 20 mg PO DAILY 08/16/17 Midodrine HCl [Midodrine] 2.5 mg PO TID 08/16/17 Promethazine HCl 12.5 mg PO Q6HR PRN 08/16/17 Rivaroxaban [Xarelto] 20 mg PO DAILY 08/16/17
== END 2017-08-16 18:15 | disposition home or self-care (01) ==
LOC: ED 17:35
DX: S60.460A Insect bite (nonvenomous) of right index finger, initial encounter (principal); W57.XXXA Bitten or stung by nonvenomous insect and other nonvenomous arthropods, initial encounter
CPT/HCPCS: 99282

== ENCOUNTER 2018-02-20 17:04 | Inpatient (IN) | payer OTHER ==
--- NOTE | 2018-02-20 17:32 | ED.PDOC ---
General ED Provider: Dr. EMANI SANDOVAL Chief Complaint: Cough Stated Complaint: Severe shortness of breath. Onset last evening. Normally use oxygen at home. NO NEBS Time Seen by Physician: 17:15 Mode of Arrival: Walk-In Information Source: Patient Exam Limitations: No limitations Primary Care Provider: MARZENA CUEVAS Referred to ED by: Other Nursing and Triage Documentation Reviewed and Agree: Yes Reviewed sepsis parameters & appropriate labs ordered?: Yes System Inflammatory Response Syndrome: Temp 101F or Greater, Pulse >90 BPM, Resp >20/Minute, Acutely Altered Mental Status Sepsis Protocol: For patient's 13 years and over: Temp is 96.8 and below OR 101 and greater Pulse >90 BPM Resp >20/minute Acutely Altered Mental Status Are patient's symptoms suggestive of a new infection, such as: -Pneumonia -Skin, Soft Tissue -Endocarditis -UTI -Bone, Joint Infection -Implantable Device -Acute Abdominal Infection -Wound Infection -Meningitis -Blood Stream Catheter Infection -Unknown System Inflammatory Response Syndrome: Not Applicable Respiratory Complaint Exam - Shortness of Air Complaint/Exam Onset/Duration: YESTERDAY Symptoms Are: Still present (yE) Timing: Constant Initial Severity: Severe Current Severity: Moderate Character: Reports: Dyspnea at rest, Dyspnea on exertion Aggravating: Reports: Movement, Deep breaths, Recumbent position, URI Alleviating: Reports: Oxygen, Upright position Associated Signs and Symptoms: Reports: Cough, Fever, Chills Review of Systems - Review Of Systems Constitutional: Reports: No symptoms, Fever, Malaise, Weakness Eyes: Reports: No symptoms Ears, Nose, Mouth, Throat: Reports: No symptoms Respiratory: Reports: No symptoms, Cough, Orthopnea, Short of air, Wheezing Cardiac: Reports: No symptoms GI: Reports: No symptoms : Reports: No symptoms Musculoskeletal: Reports: No symptoms Skin: Reports: No symptoms Neurological: Reports: No symptoms Endocrine: Reports: No symptoms Hematologic/Lymphatic: Reports: No symptoms All Other Systems: Reviewed and Negative Past Medical History - Past Medical History Previously Healthy: Yes Endocrine: Reports: Hypothyroid, Dyslipidemia Cardiovascular: Reports: Hypertension Respiratory: Reports: None Hematological: Reports: None Gastrointestinal: Reports: GERD Genitourinary: Reports: None Neuro/Psych: Reports: Anxiety Musculoskeletal: Reports: None Cancer: Reports: None Last Menstrual Period: hysterectomy Other Pertinent Past Medical History: MVP - Surgical History General Surgical History: Reports: Hysterectomy, Appendectomy, Cholecystectomy, Orthopedic (Rt gr toe surgery 09/02/14) - Family History Family History: Reports: Unknown - Social History Smoking Status: Never smoker Hx Substance Use: No Alcohol Screening: None - Immunizations Tetanus Shot up to Date: Yes Physical Exam - Physical Exam Appearance: Ill-appearing, No pain distress, Well-nourished, Obese Ill-appearing: Severe Pain Distress: Mild Eyes: JEAN CARLOS, EOMI, Conjunctiva clear ENT: Ears normal, Nose normal, Oropharynx normal Respiratory: Airway patent, Breath sounds diminished, Crackles, Wheezes Cardiovascular: RRR, Pulses normal, No rub, No murmur GI/: Soft, Nontender, No masses, Bowel sounds normal, No Organomegaly Musculoskeletal: Normal strength, ROM intact, No edema, No calf tenderness Skin: Warm, Dry, Normal color Neurological: Sensation intact, Motor intact, Reflexes intact, Cranial nerves intact, Alert, Oriented Psychiatric: Affect appropriate, Mood appropriate Interpretation - Radiology Interpretation Radiology Interpretation By: ED Physician Radiology Results: No acute changes Exam Interpreted: CXR Physician Notification - Case Discussed Physician Notified: DR CUEVAS Time of Notification: 20:20 (AGREED TO ACCEPT PATIENT FOR ADMISSION ) Critical Care Note - Critical Care Note Total Time (mins): 30 Course - Course Hematology/Chemistry: 02/20/18 18:02 02/20/18 18:02 Orders, Labs, Meds: Lab Review 02/20/18 02/20/18 02/20/18 17:25 17:28 18:02 WBC 8.70 RBC 3.86 L Hgb 10.5 L Hct 32.8 L MCV 85.0 MCH 27.2 MCHC 32.0 RDW Coeff of Eliu 15.7 H Plt Count 221 Immature Gran % (Auto) 0.5 Neut % (Auto) 72.8 Lymph % (Auto) 21.0 Churchill % (Auto) 4.0 Eos % (Auto) 1.5 Baso % (Auto) 0.2 Immature Gran # (Auto) 0.0 Neut # (Auto) 6.3 Lymph # (Auto) 1.8 Churchill # (Auto) 0.4 Eos # (Auto) 0.1 Baso # (Auto) 0.0 PT INR APTT Puncture Site Lrad O2 Saturation 90.0 L ABG pH 7.424 ABG pCO2 34.3 L ABG pO2 57.0 L* ABG HCO3 22.5 ABG Total CO2 23 ABG Base Excess -2 Joe Test + FiO2 % 21.0 Sodium Potassium Chloride Carbon Dioxide Anion Gap BUN Creatinine Estimated GFR (MDRD) BUN/Creatinine Ratio Glucose Lactic Acid Calcium Total Bilirubin AST ALT Alkaline Phosphatase Total Protein Albumin Globulin Albumin/Globulin Ratio Procalcitonin Influ A Molecular Assay Negative by naat Influ B Molecular Assay Negative by naat 02/20/18 02/20/18 02/20/18 18:02 18:02 18:02 WBC RBC Hgb Hct MCV MCH MCHC RDW Coeff of Eliu Plt Count Immature Gran % (Auto) Neut % (Auto) Lymph % (Auto) Churchill % (Auto) Eos % (Auto) Baso % (Auto) Immature Gran # (Auto) Neut # (Auto) Lymph # (Auto) Churchill # (Auto) Eos # (Auto) Baso # (Auto) PT 11.3 H INR 1.13 APTT 31.6 Puncture Site O2 Saturation ABG pH ABG pCO2 ABG pO2 ABG HCO3 ABG Total CO2 ABG Base Excess Joe Test FiO2 % Sodium 141 Potassium 4.0 Chloride 107 Carbon Dioxide 21 L Anion Gap 17.0 BUN 13 Creatinine 1.00 Estimated GFR (MDRD) 56.00 BUN/Creatinine Ratio 13.00 Glucose 148 H Lactic Acid Calcium 9.2 Total Bilirubin 0.6 AST 20 ALT 18 Alkaline Phosphatase 136 Total Protein 7.3 Albumin 3.7 Globulin 3.6 Albumin/Globulin Ratio 1.03 Procalcitonin < 0.05 Influ A Molecular Assay Influ B Molecular Assay 02/20/18 18:02 WBC RBC Hgb Hct MCV MCH MCHC RDW Coeff of Eliu Plt Count Immature Gran % (Auto) Neut % (Auto) Lymph % (Auto) Churchill % (Auto) Eos % (Auto) Baso % (Auto) Immature Gran # (Auto) Neut # (Auto) Lymph # (Auto) Churchill # (Auto) Eos # (Auto) Baso # (Auto) PT INR APTT Puncture Site O2 Saturation ABG pH ABG pCO2 ABG pO2 ABG HCO3 ABG Total CO2 ABG Base Excess Joe Test FiO2 % Sodium Potassium Chloride Carbon Dioxide Anion Gap BUN Creatinine Estimated GFR (MDRD) BUN/Creatinine Ratio Glucose Lactic Acid 17.9 Calcium Total Bilirubin AST ALT Alkaline Phosphatase Total Protein Albumin Globulin Albumin/Globulin Ratio Procalcitonin Influ A Molecular Assay Influ B Molecular Assay Orders Category Date Time Status ABG DRAW REQUEST Stat CARDIO 02/20/18 17:28 Completed EKG-(ED ONLY) Stat CARDIO 02/20/18 17:29 Completed NEBULIZER TREATMENT Stat CARDIO 02/20/18 17:56 Completed IV ACCESS ONCE CARE 02/20/18 17:40 Active ED APPLY O2 .ONCE EMERGENCY 02/20/18 17:40 Active ED VITAL SIGNS Q1HR EMERGENCY 02/20/18 17:40 Active ABG Stat LAB 02/20/18 17:28 Completed BLOOD CULTURE (ED ONLY) Stat LAB 02/20/18 18:02 Received CBC W/ AUTO DIFF Stat LAB 02/20/18 18:02 Completed COMPREHENSIVE METABOLIC PANEL Stat LAB 02/20/18 18:02 Completed FLU A/B MOLECULAR Stat LAB 02/20/18 17:25 Completed LACTIC ACID Stat LAB 02/20/18 18:02 Completed PARTIAL THROMBOPLASTIN TIME Stat LAB 02/20/18 18:02 Completed PROCALCITONIN Stat LAB 02/20/18 18:02 Completed PT WITH INR Stat LAB 02/20/18 18:02 Completed SPUTUM CULTURE Stat LAB 02/20/18 17:42 Uncollected URINALYSIS C & S IF INDICATED Stat LAB 02/20/18 17:40 Uncollected Azithromycin [Zithromax] MEDS 02/20/18 20:15 Stat 500 mg PO ONCE STA Ceftriaxone Sodium [Rocephin] MEDS 02/20/18 18:32 Discontinued 1 gm .ROUTE .STK-MED ONE Ceftriaxone Sodium [Rocephin] 1 gm MEDS 02/20/18 17:42 Discontinued 0.9 % Sodium Chloride [Sodium Chloride] 50 ml IV ONCE Ipratropium/Albuterol Neb [Duoneb] MEDS 02/20/18 17:35 Discontinued 1 vial NEB .STK-MED ONE Ipratropium/Albuterol Neb [Duoneb] MEDS 02/20/18 17:56 Discontinued 1 vial NEB ONCE STA Methylprednisolone Sod Succ/Pf [Solu-Medrol 125 mg] MEDS 02/20/18 17:42 Discontinued 125 mg IM ONCE STA Sodium Chloride 0.9% [Sodium Chloride] 1,000 ml MEDS 02/20/18 17:42 Discontinued IV BOLUS CHEST, 1V AP ONLY Stat RADS 02/20/18 17:40 Taken Medications Discontinued Medications Generic Name Dose Route Start Last Admin Trade Name Freq PRN Reason Stop Dose Admin Albuterol/Ipratropium 1 vial 02/20/18 17:56 02/20/18 17:57 Duessenceb NEB 02/20/18 17:57 Not Given ONCE STA Azithromycin 500 mg 02/20/18 20:15 Zithromax PO 02/20/18 20:16 ONCE STA Ceftriaxone Sodium 1 gm/ 50 mls @ 75 mls/hr 02/20/18 17:42 02/20/18 18:39 Sodium Chloride IV 02/20/18 18:21 75 mls/hr ONCE STA Administration Sodium Chloride 1,000 mls @ 500 mls/hr 02/20/18 17:42 02/20/18 18:37 Sodium Chloride IV 02/20/18 19:41 200 mls/hr BOLUS STA Administration Methylprednisolone Sodium Succinate 125 mg 02/20/18 17:42 02/20/18 18:38 Solu-Medrol 125 Mg IM 02/20/18 17:43 125 mg ONCE STA Administration Vital Signs: Temp Pulse Resp BP Pulse Ox 02/20/18 18:31 87 26 H 138/79 92 L 02/20/18 17:50 93 H 19 116/78 92 L 02/20/18 17:33 85 26 H 150/82 H 88 L 02/20/18 17:04 101.4 F H 90 28 H 154/87 H 84 L Departure - Departure Time of Disposition: 20:20 Disposition: ADMITTED INPATIENT Discharge Problem: COPD with acute exacerbation Discharge Problem: (Ruled Out): Asthma exacerbation in COPD Instructions: COPD (Chronic Obstructive Pulmonary Disease) (ED) Condition: Fair Pt referred to PMD for follow-up: Yes (DR CUEVAS) IPMP verified?: No Additional Instructions: EXPLAINED TO PATIENT AND HER DAUGHTER RECOMMENDATION OF ADMISSION SPOKE WITH DR CUEVAS WHO AGREES WITH TREATMENT PLAN Allergies/Adverse Reactions: Allergies aspirin Adverse Reaction (Verified 02/20/18 17:11) Pt states high dosage only. Can take baby aspirin. codeine Adverse Reaction (Verified 02/20/18 17:11) venom-honey bee [bee venom (honey bee)] Adverse Reaction (Verified 02/20/18 17: 11) Home Medications: Ambulatory Orders Lorazepam [Ativan] 1 mg PO DAILY 05/06/13 Rosuvastatin Calcium [Crestor] 40 mg PO BEDTIME 05/06/13 Nitroglycerin [Nitrostat] 0.4 mg SL Q5MIN X 3 DOSES PRN 03/12/15 Esomeprazole Magnesium [Nexium] 40 mg PO DAILY 02/27/16 Hydrocodone Bit/Acetaminophen [[place] 5-325] 1 tab PO BID PRN 05/12/17 Citalopram Hydrobromide [Citalopram HBr] 20 mg PO DAILY 08/16/17 Promethazine HCl 12.5 mg PO Q6HR PRN 08/16/17 Rivaroxaban [Xarelto] 20 mg PO DAILY 08/16/17 Albuterol Sulfate [Ventolin Hfa] 18 gm IH DIRECTED PRN 02/20/18 Disposition Discussed With: Patient, Family
[2018-02-20] MEDS ORDERED: DUONEB NEB ONE (17:35)
[2018-02-20] MEDS ORDERED: SOLU-MEDROL 125 MG IM STA (17:42)
[2018-02-20] MEDS ORDERED: ROCEPHIN 1 GM in SODIUM CHLORIDE 50 ML IV STA (17:42)
[2018-02-20] MEDS ORDERED: SODIUM CHLORIDE 1,000 ML IV STA (17:42)
[2018-02-20] MEDS ORDERED: DUONEB NEB STA (17:56)
[2018-02-20] MEDS ORDERED: ROCEPHIN ONE (18:32)
[2018-02-20] MEDS ORDERED: ZITHROMAX PO STA (20:15)
[2018-02-20] MEDS ORDERED: TYLENOL PO PRN (20:23)
[2018-02-20] MEDS ORDERED: NITROSTAT SL PRN (20:33)
[2018-02-20] MEDS: SOLU-MEDROL 125 MG IVP SCH (21:38)
[2018-02-20] MEDS: CRESTOR PO SCH (21:38)
[2018-02-20] MEDS: SODIUM CHLORIDE 1,000 ML IV SCH (21:41)
[2018-02-20 22:00] VITALS: BMI 30.2
[2018-02-20] MEDS: HUMULIN R SUBCUT PRN (22:05)
[2018-02-20] MEDS: DUONEB NEB SCH (22:50)
[2018-02-21] MEDS: SODIUM CHLORIDE 1,000 ML IV SCH (03:33)
[2018-02-21] MEDS: DUONEB NEB SCH ×4 (05:20→22:40)
[2018-02-21] MEDS: SOLU-MEDROL 125 MG IVP SCH ×3 (05:40→20:26)
[2018-02-21] MEDS: HUMULIN R SUBCUT PRN ×4 (05:49→20:26)
--- NOTE | 2018-02-21 07:49 | DI ---
EXAM: Single AP view of the chest HISTORY: Dyspnea. COMPARISON: Chest x-ray 07/14/2017 FINDINGS: Cardiomediastinal silhouette is normal. Bilateral shoulder surgery and cervical fusion baltazar dware are present. There is no consolidation, nodule or mass. There is a left lung calcified granul kevin. The osseous structures are unremarkable. IMPRESSION: No acute cardiopulmonary process.
[2018-02-21] MEDS: ROCEPHIN 1 GM in SODIUM CHLORIDE 50 ML IV SCH (08:42)
[2018-02-21] MEDS: PROTONIX PO SCH (08:43)
[2018-02-21] MEDS: CELEXA PO SCH (08:43)
[2018-02-21] MEDS: ATIVAN PO SCH (08:44)
[2018-02-21] MEDS: ZITHROMAX PO SCH (08:44)
[2018-02-21] MEDS ORDERED: NON-FORMULARY MEDICATION (Rivaroxaban [Xarelto] 20 MG) PO SCH (09:00)
[2018-02-21] MEDS ORDERED: NON-FORMULARY MEDICATION (Esomeprazole Magnesium [Nexium] 40 MG) PO SCH (09:00)
--- NOTE | 2018-02-21 09:32 | PCM.PROG ---
Attending Provider: ATTENDING PROVIDER: Dr. MARZENA CUEVAS DATE OF SERVICE: 02/21/18 SUBJECTIVE: This 62 year old WHITE/ F was hospitalized 02/20/18 with acute bronchitis, fever and chills. Condition has improved. She still has mild cough. No fever, no chills. No PND, no orthopnea. She is feeling better. REVIEW OF SYSTEMS: CONSTITUTIONAL: No night sweats. No fatigue, malaise, lethargy. No fever or chills. HEENT: Eyes: No visual changes. No eye pain. No eye discharge. ENT: No runny nose. No epistaxis. No sinus pain. No odynophagia. No congestion. RESPIRATORY: Mild cough, no congestion. No hemoptysis. No shortness of breath. CARDIOVASCULAR: No angina symptoms. No CHF symptoms. No atypical chest pain for CAD. No palpitations. No orthopnea.. GASTROINTESTINAL: No abdominal pain. No nausea or vomiting. No diarrhea or constipation. No hematemesis. No hematochezia. GENITOURINARY: No urgency. No frequency. No dysuria. No hematuria. No obstructive symptoms. No discharge. No pain. No significant abnormal bleeding. MUSCULOSKELETAL: No musculoskeletal pain; no joint swelling. NEUROLOGICAL: Awake, alert, oriented to time, place and person. No headache. No neck pain. No syncope. No seizures. No dizziness. PSYCHIATRIC: Not anxious. No depression. No suicidal thoughts. No homicidal thoughts. SKIN: No rash. No lesions. No wounds. ENDOCRINE: No unexplained weight loss. No weight gain. HEMATOLOGIC/LYMPHATIC: No anemia. No purpura. No petechiae. No prolonged or excessive bleeding. No palpable lymph nodes. PHYSICAL EXAMINATION: GENERAL: The patient is awake, alert and oriented, lying in bed in no distress. VITAL SIGNS: Temperature 98.6 F, Pulse 79, Respiratory Rate 18, BP 107/60, Pulse Ox 91% HEENT: Head normocephalic, atraumatic. Eyes: Extraocular muscles are intact. Pupils are equal, round and reactive to light and accommodation. Ears: No lesions. Nose appeared normal. Throat: No exudate or erythema. NECK: Supple. No JVD, no carotid bruit. No lymphadenopathy or thyromegaly. LUNGS: Decreased breath sounds. Clear to auscultation. Percussion note normal. Chest symmetrical. HEART: S1, S2, no S3. No murmurs. No cyanosis or clubbing. No ascites. Pulses: Dorsalis pedis and posterior tibial pulses +1 to +2 both sides. ABDOMEN: Soft. Non-tender. Bowel sounds active. No CVA tenderness. No mass felt. EXTREMITIES: No edema. Full range of motion of all extremities, equal. NEUROLOGIC: No focal deficit. Cranial nerves II through XII are grossly intact. No headache, no double vision or headache. SKIN: Warm and dry. Intact. Turgor-normal. LYMPHATIC: No palpable lymph nodes/no lymphedema. MUSCULOSKELETAL: Normal joints with no swelling. Muscle tone is normal. LAB REVIEW: 02/21/18 04:45 02/21/18 04:45 02/21/18 04:45: WBC 6.11, RBC 3.52 L, Hgb 9.6 L, Hct 29.8 L, MCV 84.7, MCH 27.3 , MCHC 32.2, RDW Coeff of Eliu 15.8 H, Plt Count 199, Neutrophils % (Manual) 88.0 H, Lymphocytes % (Manual) 12.0, Anisocytosis Not present 02/21/18 04:45: Sodium 141, Potassium 3.9, Chloride 111 H, Carbon Dioxide 18 L, Anion Gap 15.9, BUN 17, Creatinine 1.08, Estimated GFR (MDRD) 52.00, BUN/ Creatinine Ratio 15.74, Glucose 219 H D, Calcium 9.2, Total Bilirubin 0.4, AST 17, ALT 19, Alkaline Phosphatase 123, Total Protein 6.8, Albumin 3.2 L, Globulin 3.6, Albumin/Globulin Ratio 0.89 02/21/18 04:30: Puncture Site Lb, O2 Saturation 89.0 L, ABG pH 7.382, ABG pCO2 31.9 L, ABG pO2 57.0 L*, ABG HCO3 18.9 L, ABG Total CO2 20 L, ABG Base Excess - 6 L, Joe Test +, FiO2 % 21.0 ASSESSMENT: 1. Acute bronchitis/pneumonitis 2. Laryngitis 3. Hyperglycemia, could be from steroids 4. Chronic lung disease, no history of smoking 5. History of pulmonary embolus following pneumonia and is on Xarelto PLAN: 1. Continue Zithromax and Rocephin. 2. D/C IV fluids. Hydration status is improved. 3. Continue nebs treatment and all the rest of the medications 4. Anemia profile 5. A1C 6. Regular diet 7. D/C IV fluids 8. Encouraged to walk Plan and coordination of the patient's care discussed in the presence of Oil Recovery Operator and nurse. CONDITION: Stable SCRIBED BY: TABITHA FIGUEROA Weaving Machine Operator scribed while in presence of service performed by Dr. MARZENA CUEVAS on 02/21/18 ([id number])
[2018-02-21] MEDS: XARELTO PO SCH (17:27)
[2018-02-21] MEDS: CRESTOR PO SCH (20:26)
[2018-02-21] MEDS: NORCO 5-325 PO PRN (23:07)
[2018-02-22] MEDS: DUONEB NEB SCH ×3 (04:58→17:07)
[2018-02-22] MEDS: SOLU-MEDROL 125 MG IVP SCH (05:52)
[2018-02-22] MEDS: PROTONIX PO SCH (05:53)
[2018-02-22] MEDS: HUMULIN R SUBCUT PRN ×3 (05:53→21:09)
[2018-02-22] MEDS ORDERED: VITAMIN B-12 IM STA (08:57)
[2018-02-22] MEDS: ZITHROMAX PO SCH (09:08)
[2018-02-22] MEDS: CELEXA PO SCH (09:08)
[2018-02-22] MEDS: ATIVAN PO SCH (09:08)
[2018-02-22] MEDS: ROCEPHIN 1 GM in SODIUM CHLORIDE 50 ML IV SCH (09:09)
--- NOTE | 2018-02-22 09:12 | PCM.PROG ---
Attending Provider: ATTENDING PROVIDER: Dr. MARZENA CUEVAS This patient is seen with Paty Montalvo, Nurse Practitioner. DATE OF SERVICE: 02/22/18 SUBJECTIVE: This 62 year old WHITE/ F was hospitalized 02/20/18. The patient is lying in bed, alert. She states she slept well. She states cough is improved. Low grade temperature last night. Anemia profile showed low iron as well as low B12. REVIEW OF SYSTEMS: CONSTITUTIONAL: No night sweats. No fatigue, malaise, lethargy. No fever or chills. HEENT: Eyes: No visual changes. No eye pain. No eye discharge. ENT: No runny nose. No epistaxis. No sinus pain. No odynophagia. No congestion. RESPIRATORY: Cough. No congestion. No hemoptysis. No shortness of breath. CARDIOVASCULAR: No angina symptoms. No CHF symptoms. No atypical chest pain for CAD. No palpitations. No orthopnea.. GASTROINTESTINAL: No abdominal pain. No nausea or vomiting. No diarrhea or constipation. No hematemesis. No hematochezia. GENITOURINARY: No urgency. No frequency. No dysuria. No hematuria. No obstructive symptoms. No discharge. No pain. No significant abnormal bleeding. MUSCULOSKELETAL: No musculoskeletal pain; no joint swelling. NEUROLOGICAL: Awake, alert, oriented to time, place and person. No headache. No neck pain. No syncope. No seizures. No dizziness. PSYCHIATRIC: Not anxious. No depression. No suicidal thoughts. No homicidal thoughts. SKIN: No rash. No lesions. No wounds. ENDOCRINE: No unexplained weight loss. No weight gain. HEMATOLOGIC/LYMPHATIC: No anemia. No purpura. No petechiae. No prolonged or excessive bleeding. No palpable lymph nodes. PHYSICAL EXAMINATION: GENERAL: The patient is awake, alert and oriented, lying in bed in no distress. VITAL SIGNS: Temperature 98.1 F, Pulse 95, Respiratory Rate 18, BP 128/60, Pulse Ox 95% HEENT: Head normocephalic, atraumatic. Eyes: Extraocular muscles are intact. Pupils are equal, round and reactive to light and accommodation. Ears: No lesions. Nose appeared normal. Throat: No exudate or erythema. NECK: Supple. No JVD, no carotid bruit. No lymphadenopathy or thyromegaly. LUNGS: Diminished breath sounds bilaterally. Clear to auscultation. Percussion note normal. Chest symmetrical. HEART: S1, S2, no S3. No murmurs. No cyanosis or clubbing. No ascites. Pulses: Dorsalis pedis and posterior tibial pulses +1 to +2 both sides. ABDOMEN: Soft. Non-tender. Bowel sounds active. No CVA tenderness. No mass felt. EXTREMITIES: No edema. Full range of motion of all extremities, equal. NEUROLOGIC: No focal deficit. Cranial nerves II through XII are grossly intact. No headache, no double vision or headache. SKIN: Not dry. Intact. Turgor-normal. LYMPHATIC: No palpable lymph nodes/no lymphedema. MUSCULOSKELETAL: Normal joints with no swelling. Muscle tone is normal. LAB REVIEW: 02/22/18 04:30 02/22/18 04:30 02/22/18 04:30: WBC 11.40 H D, RBC 3.42 L, Hgb 9.4 L, Hct 28.6 L, MCV 83.6, MCH 27.5, MCHC 32.9, RDW Coeff of Eliu 16.0 H, Plt Count 228, Immature Gran % (Auto) 1.3, Neut % (Auto) 87.8, Lymph % (Auto) 8.6 L, [place] % (Auto) 2.3, Eos % (Auto) 0.0, Baso % (Auto) 0.0, Immature Gran # (Auto) 0.2, Neut # (Auto) 10.0 H, Lymph # (Auto) 1.0, [place] # (Auto) 0.3 L, Eos # (Auto) 0.0, Baso # (Auto) 0.0 02/22/18 04:30: Sodium 142, Potassium 4.0, Chloride 112 H, Carbon Dioxide 20 L, Anion Gap 14.0, BUN 23 H, Creatinine 0.96, Estimated GFR (MDRD) 59.00, BUN/ Creatinine Ratio 23.95, Glucose 201 H, Calcium 9.2, Total Bilirubin 0.2, AST 11 L, ALT 16, Alkaline Phosphatase 105, Total Protein 6.4, Albumin 3.1 L, Globulin 3.3, Albumin/Globulin Ratio 0.94 02/21/18 14:57: Urine Color Yellow, Urine Clarity Clear, Urine pH 5.5, Ur Specific Martin 1.015, Urine Protein Negative, Urine Glucose (UA) 2+, Urine Ketones Trace, Urine Blood Negative, Urine Nitrite Negative, Urine Bilirubin Negative, Urine Urobilinogen 0.2, Ur Leukocyte Esterase Negative 02/21/18 08:35: Transferrin 260 02/21/18 08:35: Vitamin B12 161 L 02/21/18 08:35: Iron 12 L, TIBC 299, % Saturation 4, Unsat Iron Binding 287, Ferritin 24.69, Folate 10.7 02/21/18 08:35: Hemoglobin A1c 6.0 02/21/18 08:35: Reticulocyte % (Auto) , Absolute Retic , Retic Hgb Equivalent ASSESSMENT: 1. Acute bronchitis/pneumonitis 2. Laryngitis 3. Hyperglycemia, could be from steroids 4. Chronic lung disease, no history of smoking 5. History of pulmonary embolus following pneumonia and is on Xarelto 6. Anemia, iron deficiency 7. B12 deficiency PLAN: 1. Ferrous Sulfate 325 mg twice a day 2. 1 cc B12 Plan and coordination of the patient's care discussed in the presence of Intensive Care Ambulance Paramedic and nurse. CONDITION: Stable SCRIBED BY: TABITHA FIGUEROA Recreation Therapy Teacher scribed while in presence of service performed by Dr. Cuevas/Paty Montalvo APRN on 02/22/18 ([id number])
[2018-02-22] MEDS: FERROUS SULFATE PO SCH ×2 (09:14→21:08)
[2018-02-22] MEDS: PREDNISONE PO SCH ×2 (14:28→17:03)
--- NOTE | 2018-02-22 15:21 | HP ---
DATE OF SERVICE: 02/21/18 REASON FOR HOSPITALIZATION/HISTORY OF PRESENT ILLNESS: 62 year old white female who presented to the emergency room with severe shortness of breath and coughing. She normally uses oxygen at home. She stated that she had just started coughing and feeling short of breath the night before. She had had a low grade fever at home. PAST MEDICAL HISTORY: Pulmonary embolism July 2017 she is on Xarelto Hypertension GERD Dyslipidemia Diabetes Mellitus type 2 Depression Generalized osteoarthritis Sciatica Over active bladder Myelodysplastic disease History of hypotension Hypothyroidism PAST SURGICAL HISTORY: Right foot surgery Left foot surgery Hysterectomy Appendectomy Cholecystectomy REVIEW OF SYSTEMS: CONSTITUTIONAL: No night sweats. Fatigue. Fever. HEENT: Eyes: No visual changes. No eye pain. No eye discharge. ENT: No runny nose. No epistaxis. No sinus pain. No sore throat. No odynophagia. No ear pain. No congestion. RESPIRATORY: Cough, no congestion. No hemoptysis. Shortness of breath. CARDIOVASCULAR: No angina symptoms. No CHF symptoms. No atypical chest pain for CAD. No palpitations. No orthopnea. GASTROINTESTINAL: No abdominal pain. No nausea or vomiting. No diarrhea or constipation. No hematemesis. No hematochezia. GENITOURINARY: No urgency. No frequency. No dysuria. No hematuria. No obstructive symptoms. No discharge. No pain. No significant abnormal bleeding. MUSCULOSKELETAL: No musculoskeletal pain. No joint swelling. No arthritis. NEUROLOGICAL: No headache. No neck pain. No syncope. No seizures. No dizziness. PSYCHIATRIC: Not anxious. No depression. No suicidal thoughts. No homicidal thoughts. SKIN: No rash. No lesions. No wounds. ENDOCRINE: No unexplained weight loss. No weight gain. HEMATOLOGIC/LYMPHATIC: No anemia. No purpura. No petechiae. No prolonged or excessive bleeding. No palpable lymph nodes. PERSONAL/FAMILY/SOCIAL HISTORY: No pertinent family history. The patient is nonsmoker and denies any alcohol or illicit drug use. MEDICATIONS: Crestor 40mg PO bedtime Ativan 1mg PO daily Nitrostat 0.4mg SL Q 5 minutes x 3 doses PRN Nexium 40mg Po daily Dille 5-325 PO twice a day PRN Xarelto 20mg Po daily Promethazine 12.5mg PO Q 6 hours PRN Citalopram 20mg PO daily Ventolin 18gram IG as directed PRN ALLERGIES: Aspirin Codeine Venom-Honey Bee PHYSICAL EXAMINATION: VITAL SIGNS: Temperature 101.4, heart rate 90, respiratory rate 26, blood pressure 150/82 and pulse ox 89%. HEENT: Head normocephalic, atraumatic. Eyes: Extraocular muscles are intact. Pupils are equal, round and reactive to light and accommodation. Ears: No lesions. Nose appeared normal. Throat: No exudate or erythema. NECK: Supple. No JVD, no carotid bruit. No lymphadenopathy or thyromegaly. LUNGS: Severely diminished breath sounds with faint expiratory wheezing. Percussion note normal. Chest symmetrical. HEART: S1, S2, no S3. No murmurs. No cyanosis or clubbing. No ascites. Pulses: Dorsalis pedis and posterior tibial pulses +1 to +2 both sides. ABDOMEN: Soft. Nontender. Bowel sounds active. No CVA tenderness. No mass felt. EXTREMITIES: No edema. Full range of motion of all extremities, equal. NEUROLOGIC: No focal deficit. Cranial nerves II through XII are grossly intact. No headache, no double vision or headache. SKIN: Not dry. Intact. Turgor - normal. LYMPHATIC: No palpable lymph nodes/no lymphedema. MUSCULOSKELETAL: Normal joints with no swelling. Muscle tone is normal. LABS: Chest x-ray revealed no acute cardiopulmonary process. ABG on room air pH 7.424 , pCo2 34.3, pO2 57, base excess of -2, bicarb 22.5, TCO2 23, O2 saturation 90% . Rapid flu A and B are both negative. Sodium 141, potassium 4.0, BUN 13, creatinine 1.0, glucose 148, AST 20, ALT 18, total protein 7.3, Albumin 3.7, Alkaline phosphatase 136. INR 1.13, WBC 8.7, hgb 10.5, hct 32.8, plt count 221. ASSESSMENT: 1. Acute pneumonitis 2. Shortness of breath 3. Anemia PLAN: 1. Admit to the floor 2. CBC and CMP daily 3. Routine telemetry orders 4. Anemia profile 5. Continue home medications 6. Rocephin 1 gram IV daily 7. Zithromax 500mg PO daily times three days 8. Solu-Medrol 125mg IV Q 8 hours 9. Xopenex NEBS treatment Q 6 hours scheduled 10.Sputum for culture and sensitivity 11.Blood cultures 12.U/A with DIRECTOR OF BROADCAST if indicated 13.Chest x-ray Will follow daily TIME SPENT: More than 70 minutes. MTDD
[2018-02-22] MEDS: XARELTO PO SCH (17:03)
[2018-02-22] MEDS: CRESTOR PO SCH (21:09)
[2018-02-22] MEDS: NORCO 5-325 PO PRN (22:08)
[2018-02-23] MEDS: DUONEB NEB SCH ×2 (00:47→04:46)
[2018-02-23] MEDS: HUMULIN R SUBCUT PRN (06:05)
[2018-02-23] MEDS: PROTONIX PO SCH (06:07)
--- NOTE | 2018-02-23 09:11 | PN ---
DATE OF SERVICE: 02/22/18 SUBJECTIVE: This patient was hospitalized with acute bronchitis/pneumonitis. The patient's condition has improved. Hydration status has improved. Cardiovascular status is stable. PHYSICAL EXAMINATION: HEENT: Head normocephalic, atraumatic. Eyes: Extraocular muscles are intact. Pupils are equal, round and reactive to light and accommodation. Ears: No lesions. Nose appeared normal. Throat: No exudate or erythema. NECK: Supple. No JVD, no carotid bruit. No lymphadenopathy or thyromegaly. LUNGS: Decreased breath sounds with good air entry. Clear to auscultation. Percussion note normal. Chest symmetrical. HEART: S1, S2, no S3. No murmurs. No cyanosis or clubbing. No ascites. Pulses: Dorsalis pedis and posterior tibial pulses +1 to +2 both sides. ABDOMEN: Soft. Nontender. Bowel sounds active. No CVA tenderness. No mass felt. EXTREMITIES: No pedal edema. Full range of motion of all extremities, equal. NEUROLOGIC: No focal deficit. Cranial nerves II through XII are grossly intact. No headache, no double vision or headache. SKIN: Not dry. Intact. Turgor - normal. LYMPHATIC: No palpable lymph nodes/no lymphedema. MUSCULOSKELETAL: Normal joints with no swelling. Muscle tone is normal. CONDITION: Stable The patient was seen and examined with the nurse practitioner. TIME SPENT: More than 30 minutes. Plan and coordination of the patient's care discussed in the presence of nurse. RIANA
[2018-02-23] MEDS: CELEXA PO SCH (09:24)
[2018-02-23] MEDS: ATIVAN PO SCH (09:24)
[2018-02-23] MEDS: ROCEPHIN 1 GM in SODIUM CHLORIDE 50 ML IV SCH (09:24)
[2018-02-23] MEDS: FERROUS SULFATE PO SCH (09:24)
[2018-02-23] MEDS: PREDNISONE PO SCH (09:26)
--- NOTE | 2018-02-23 09:51 | PN ---
DATE OF SERVICE: 02/20/18 SUBJECTIVE: The patient was admitted through the emergency room having shortness of breath, fever and chills. The patient's fever was 101 in the emergency room. Her vitals otherwise were stable. Oxygen saturation on room air was noted to be 84% but arterial blood gases revealed that her oxygen saturation was 90% with p02 57 , pc02 34 with normal pH of 7.40. The patient was given nebs treatment, Solu- Medrol, Azithromax, IV Rocephin. Her condition seemed to have improved and she was hospitalized with IV fluids with diagnosis of acute pneumonitis, acute respiratory failure with acute bronchitis and worsening of COPD. Note: The patient is a heavy smoker. TIME SPENT: More than 30 minutes. Plan and coordination of the patient's care discussed in the presence of nurse. RIANA
[2018-02-23] MEDS ORDERED: DUONEB NEB SCH (10:00)
[2018-02-23 10:05] VITALS: BP 100/58; TEMP 98.5
--- NOTE | 2018-02-23 10:50 | CM.DICTOOL ---
ADMISSION: 02/20/18 20:33 DISCHARGE: 02/23/18 FINAL DIAGNOSIS Diagnosis: COPD EXACERBATION ACUTE BRONCHITIS ANEMIA HYPERTENSION HIGH LIPIDS GERD ANXIETY HISTORY OF PE (ON XARELTO) CHOLECYSTECTOMY APPENDECTOMY HYSTERECTOMY CERVICAL FUSION LVH WITH LVEF 60% (May,) LAST VITALS Temp Pulse Resp BP Pulse Ox 98.4 F 83 20 124/69 96 02/23/18 05:15 02/23/18 05:15 02/23/18 08:00 02/23/18 05:15 02/23/18 05:15 ACTIVE MEDICATIONS Acetaminophen (Tylenol) 650 mg PO Q4H PRN PRN Reason: Fever >101 Last Admin: 02/21/18 17:52 Dose: 650 mg Hydrocodone Bitart/Acetaminophen (Clawson 5-325) 1 tab PO BID PRN PRN Reason: PAIN Last Admin: 02/22/18 22:08 Dose: 1 tab Citalopram Hydrobromide (Celexa) 20 mg PO DAILY [facility] Last Admin: 02/23/18 09:24 Dose: 20 mg Lorazepam (Ativan) 1 mg PO DAILY [facility] Last Admin: 02/23/18 09:24 Dose: 1 mg Nitroglycerin (Nitrostat) 0.4 mg SL Q5MIN X 3 DOSES PRN PRN Reason: Chest Pain Pantoprazole Sodium (Protonix) 40 mg PO QDAC [facility] Last Admin: 02/23/18 06:07 Dose: 40 mg Prednisone (Prednisone) 10 mg PO BIDWM [facility] FOR 5 DAYS Last Admin: 02/23/18 09:26 Dose: 10 mg Rivaroxaban (Xarelto) 20 mg PO QPM [facility] Last Admin: 02/22/18 17:03 Dose: 20 mg Rosuvastatin Calcium (Crestor) 40 mg PO BEDTIME [facility] Last Admin: 02/22/18 21:09 Dose: 40 mg KEFLEX 500MG PO TID FOR 7 DAYS. ALBUTEROL NEBULIZER 0.83% 1 VIAL EVERY 6 HOURS DISCONTINUED MEDICATIONS NONE ALLERGIES aspirin Adverse Reaction (Verified 02/20/18 17:11) codeine Adverse Reaction (Verified 02/20/18 17:11 venom-honey bee [bee venom (honey bee)] Adverse Reaction (Verified 02/20/18 17: 11) NEW PRESCRIPTIONS: NEW MEDICATIONS: 1. KEFLEX 500MG TAKE 1 CAPSULE 3 TIMES A DAY FOR 7 DAYS. TAKE UNTIL ALL GONE. 2. PREDNISONE 10MG TAKE 1 TABLET 2 TIMES A DAY FOR 5 DAYS. TAKE WITH FOOD. 3. ALBUTEROL NEBS 0.83% USE 1 VIAL EVERY 6 HOURS SMOKING: N/A DISEASE SPECIFIC EDUCATION: COPD ANEMIA MEDICATIONS INCLUDING ABX THERAPY, STEROID USE AND NEBULIZER TREATMENTS DIET ACTIVITY FOLLOW UP APPOINTMENT LAB REVIEW: 02/23/18 05:00 02/23/18 05:00 02/23/18 05:00: Sodium 142, Potassium 4.0, Chloride 112 H, Carbon Dioxide 19 L, Anion Gap 15.0, BUN 32 H, Creatinine 0.89, Estimated GFR (MDRD) 64.00, BUN/ Creatinine Ratio 35.95, Glucose 193 H, Calcium 8.9, Total Bilirubin 0.2, AST 11 L, ALT 15, Alkaline Phosphatase 95, Total Protein 6.2, Albumin 3.0 L, Globulin 3.2, Albumin/Globulin Ratio 0.94 02/23/18 05:00: WBC 10.03, RBC 3.32 L, Hgb 9.1 L, Hct 27.8 L, MCV 83.7, MCH 27.4 , MCHC 32.7, RDW Coeff of Eliu 16.1 H, Plt Count 228, Immature Gran % (Auto) 1.5 , Neut % (Auto) 78.8, Lymph % (Auto) 16.1, [place] % (Auto) 3.5, Eos % (Auto) 0.0, Baso % (Auto) 0.1, Immature Gran # (Auto) 0.2, Neut # (Auto) 7.9 H, Lymph # ( Auto) 1.6, [place] # (Auto) 0.4, Eos # (Auto) 0.0, Baso # (Auto) 0.0 PLAN: DISCHARGE TO HOME TODAY 02/23/18. CONTINUE HOME MEDICATIONS PER NURSING SHEETS. NEW MEDICATIONS: 1. KEFLEX 500MG TAKE 1 CAPSULE 3 TIMES A DAY FOR 7 DAYS. TAKE UNTIL ALL GONE. 2. PREDNISONE 10MG TAKE 1 TABLET 2 TIMES A DAY FOR 5 DAYS. TAKE WITH FOOD. 3. ALBUTEROL NEBS 0.83% USE 1 VIAL EVERY 6 HOURS DIET: REGULAR ACTIVITY: GRADUALLY RESUME ACTIVITY. REST FREQUENTLY. KEEP YOUR APPOINTMENT WITH DR. CUEVAS NEXT WEEK. IF UNABLE TO KEEP APPOINTMENT, CALL AND RESCHEDULE. [phone]. IS A FULL CODE. SITTING UP IN BED. ALERT AND ORIENTED X 4. Yasmine NORTH APRN INTO SEE PATIENT. PATIENT STATES IS READY TO GO HOME. DENIES DYSPNEA OR COUGH. PLAN OF CARE DISCUSSED PER Yasmine NORTH APRN INCLUDING DISCHARGE, NEW MEDICATIONS, NEBULIZER TREATMENT NEEDS AND FOLLOW UP. PATIENT STATES HAS AN APPOINTMENT ON MONDAY. INFORMED TO KEEP THAT APPOINTMENT. VITAL SIGNS ARE STABLE. HAS BEEN AFEBRILE. POX 96% ON O2 AT 2L/C. HEART TONES ARE REGULAR WITH TELEMETRY REVEALING SINUS RHYTHM. NO C/O PAIN OR DISCOMFORT. LUNGS ARE CLEAR WITH DIMINISHED SOUNDS. HAS INTERMITTENT NON-PRODUCTIVE COUGH. NO DYSPNEA NOTED. ABDOMEN IS SOFT, NON- TENDER WITH BOWEL SOUNDS POSITIVE IN ALL 4 QUADS. PEDAL PULSES POSITIVE WITHOUT EDEMA. HAS SALINE LOCK IN RIGHT HAND SITE IS CLEAR. HAD HEADACHE LAST PM OF WITH [facility] FOR MANAGEMENT. NONE THIS AM. IS INDEPENDENT WITH ACTIVITY OF DAILY LIVING. MARZENA CUEVAS MD Yasmine NORTH APRN
--- NOTE | 2018-02-23 12:46 | PN ---
DATE OF SERVICE: 02/23/18 SUBJECTIVE: 62 year old white female hospitalized with acute COPD and chronic lung disease. The patient has chronic anemia. Cardiovascular status is stable. Vitals are stable with Blood pressure 124/69, pulse ox 96% on room air. The patient is going to be discharged home on Keflex and Prednisone. She is advised to rest. CONDITION: Stable. The patient was seen and examined with Nurse Practitioner. TIME SPENT: More than 30 minutes. Plan and coordination of the patient's care discussed in the presence of nurse. RIANA
--- NOTE | 2018-02-23 12:47 | PN ---
02/20/18: Level 5 02/21/18: Intermediate 02/22/18: Intermediate 02/23/18: D as in discharge MTDD
--- NOTE | 2018-02-23 14:29 | PCM.PROG ---
Attending Provider: ATTENDING PROVIDER: Dr. MARZENA CUEVAS This patient is seen with Paty Montalvo, Nurse Practitioner. DATE OF SERVICE: 02/23/18 SUBJECTIVE: This 62 year old WHITE/ F was hospitalized 02/20/18. The patient is lying in bed, is alert. She states she is feeling ready to go home. Cough improved; however, still productive. The patient needs nebs treatment at home; the patient states a willingness to do nebs treatment at home. REVIEW OF SYSTEMS: CONSTITUTIONAL: No night sweats. No fatigue, malaise, lethargy. No fever or chills. HEENT: Eyes: No visual changes. No eye pain. No eye discharge. ENT: No runny nose. No epistaxis. No sinus pain. No odynophagia. No congestion. RESPIRATORY: Positive for cough. No congestion. No hemoptysis. No shortness of breath. CARDIOVASCULAR: No angina symptoms. No CHF symptoms. No atypical chest pain for CAD. No palpitations. No orthopnea.. GASTROINTESTINAL: No abdominal pain. No nausea or vomiting. No diarrhea or constipation. No hematemesis. No hematochezia. GENITOURINARY: No urgency. No frequency. No dysuria. No hematuria. No obstructive symptoms. No discharge. No pain. No significant abnormal bleeding. MUSCULOSKELETAL: No musculoskeletal pain; no joint swelling. NEUROLOGICAL: Awake, alert, oriented to time, place and person. No headache. No neck pain. No syncope. No seizures. No dizziness. PSYCHIATRIC: Not anxious. No depression. No suicidal thoughts. No homicidal thoughts. SKIN: No rash. No lesions. No wounds. ENDOCRINE: No unexplained weight loss. No weight gain. HEMATOLOGIC/LYMPHATIC: No anemia. No purpura. No petechiae. No prolonged or excessive bleeding. No palpable lymph nodes. PHYSICAL EXAMINATION: GENERAL: The patient is awake, alert and oriented, sitting in bed in no distress. VITAL SIGNS: Temperature 98.4 F, Pulse 83, Respiratory Rate 20, BP 124/69, Pulse Ox 96% HEENT: Head normocephalic, atraumatic. Eyes: Extraocular muscles are intact. Pupils are equal, round and reactive to light and accommodation. Ears: No lesions. Nose appeared normal. Throat: No exudate or erythema. NECK: Supple. No JVD, no carotid bruit. No lymphadenopathy or thyromegaly. LUNGS: Diminished breath sounds bilaterally. Clear to auscultation. Percussion note normal. Chest symmetrical. HEART: S1, S2, no S3. No murmurs. No cyanosis or clubbing. No ascites. Pulses: Dorsalis pedis and posterior tibial pulses +1 to +2 both sides. ABDOMEN: Soft. Non-tender. Bowel sounds active. No CVA tenderness. No mass felt. EXTREMITIES: No edema. Full range of motion of all extremities, equal. NEUROLOGIC: No focal deficit. Cranial nerves II through XII are grossly intact. No headache, no double vision or headache. SKIN: Not dry. Intact. Turgor-normal. LYMPHATIC: No palpable lymph nodes/no lymphedema. MUSCULOSKELETAL: Normal joints with no swelling. Muscle tone is normal. LAB REVIEW: 02/23/18 05:00 02/23/18 05:00 02/23/18 05:00: Sodium 142, Potassium 4.0, Chloride 112 H, Carbon Dioxide 19 L, Anion Gap 15.0, BUN 32 H, Creatinine 0.89, Estimated GFR (MDRD) 64.00, BUN/ Creatinine Ratio 35.95, Glucose 193 H, Calcium 8.9, Total Bilirubin 0.2, AST 11 L, ALT 15, Alkaline Phosphatase 95, Total Protein 6.2, Albumin 3.0 L, Globulin 3.2, Albumin/Globulin Ratio 0.94 02/23/18 05:00: WBC 10.03, RBC 3.32 L, Hgb 9.1 L, Hct 27.8 L, MCV 83.7, MCH 27.4 , MCHC 32.7, RDW Coeff of Eliu 16.1 H, Plt Count 228, Immature Gran % (Auto) 1.5 , Neut % (Auto) 78.8, Lymph % (Auto) 16.1, [place] % (Auto) 3.5, Eos % (Auto) 0.0, Baso % (Auto) 0.1, Immature Gran # (Auto) 0.2, Neut # (Auto) 7.9 H, Lymph # ( Auto) 1.6, [place] # (Auto) 0.4, Eos # (Auto) 0.0, Baso # (Auto) 0.0 ASSESSMENT: Please see below. 1. Acute bronchitis/pneumonitis, improving 2. Laryngitis, improving 3. Hyperglycemia, could be from steroids 4. Chronic lung disease, no history of smoking 5. History of pulmonary embolus following pneumonia and is on Xarelto 6. Anemia, iron deficiency 7. B12 deficiency PLAN: 1. Keflex 500 mg t.i.d. for 7 days 2. Prednisone 10 mg b.i.d. for 5 days 3. Albuterol neb solution as well as nebulizer machine and mask 4. Discharge home 5. Will see in office next week 6. Rest over the weekend Plan and coordination of the patient's care discussed in the presence of Lead Programmer Analyst and nurse. CONDITION: Stable SCRIBED BY: TABITHA FIGUEROA Spout Liner Helper scribed while in presence of service performed by Dr. Cuevas/Paty Montalvo APRN on 02/23/18 ([id number])
--- NOTE | 2018-02-27 07:05 | DS ---
DATE OF SERVICE: 02/23/18 FINAL DIAGNOSIS: 1. COPD EXACERBATION 2. ACUTE BRONCHITIS 3. ANEMIA 4. HYPERTENSION 5. HIGH LIPIDS 6. GERD 7. ANXIETY 8. HISTORY OF PE (ON XARELTO) 9. CHOLECYSTECTOMY 10. APPENDECTOMY 11. HYSTERECTOMY 12. CERVICAL FUSION 13. LVH WITH LVEF 60% (MAY 2017) DISCHARGE INSTRUCTIONS: Followup appointment with Dr. Groves next week. If unable to keep appointment, call and reschedule. [phone]. MEDICATIONS AT DISCHARGE: Tylenol 650 mg p.o. q.4h p.r.n. [place]ifle 5-325 one tab p.o. b.i.d. p.r.n. Celexa 20 mg p.o. daily BLAINE Ativan 1 mg p.o. daily BLAINE Nitrostat 0.4 mg SL q.5 min times three doses p.r.n. Protonix 40 mg p.o. q.d a.c. BLAINE Prednisone 10 mg p.o. b.i.d. with meal BLAINE for 5 days Xarelto 20 mg p.o. q.p.m. BLAINE Crestor 40 mg p.o. bedtime BLAINE Keflex 500 mg p.o. t.i.d. for 7 days Albuterol nebulizer 0.83% one vial every 6 hours DISCONTINUED MEDICATIONS: None NEW PRESCRIPTIONS: NEW MEDICATIONS: 1. Keflex 500 mg take one capsule 3 times a day for 7 days. Take until all gone. 2. Prednisone 10 mg take one tablet 2 times a day for 5 days. Take with food. 3. Albuterol Nebs 0.83% use one vial every 6 hours DIET INSTRUCTIONS: Regular ACTIVITY: Gradually resume activity. Rest frequently. SMOKING: N/A DISEASE SPECIFIC EDUCATION: COPD Anemia Medications including ABX therapy, steroid use and nebulizer treatments Diet Activity Follow up appointment HOSPITAL COURSE: This 62-year-old white female with history of chronic lung disease and is not a smoker who presented to the emergency room complaining of cough, fever, shortness of breath. Her ABGs were initially abnormal with p02 down to 57. She stated she had been coughing for several days. Chest x-ray revealed changes associated with COPD exacerbation. No pneumonia. The patient does have a history of PE. She was worked up and was negative. She is currently on Xarelto. Her PE I believe was in July of last year. She is a nonsmoker. She was admitted, placed on Rocephin 1 gm IV daily along with Zithromax 500 mg p.o. daily for 3 days. She was started on Solu-Cortef 125 mg IV q.8hr, Xopenex neb treatments q.6hr BLAINE along with oxygen at 1 to 2L as needed. She was placed on routine telemetry which has been normal. She has not had a fever since she has been here. Today, on day of discharge, temperature 98.4, heart rate 83, respirations 20, BP 124/69, pulse ox 96%. For the past 48 hours she has been eating 75% of her meals. She has been up and about in her room. She reports her cough has improved. Yesterday, we placed her on Prednisone 10 mg b.i.d. orally and discontinued her Solu-Cortef IV. Today she will go home with Keflex 500 mg p.o. t.i.d. for the next 7 days and the Prednisone 10 mg b.i.d. for the next 5 days. She has done so well with the nebulization treatments and they have helped significantly with the shortness of breath so I do believe it is beneficial for her to have a nebulizer machine at home. Will give her a prescription for the nebulizer machine as well as Duonebs which she is to do every 6 hours and wean as tolerated. She is to resume activities as tolerated, complete her medications. She already has a regularly scheduled appointment with us on Monday of next week which she is to keep. She is discharged in stable condition. Also she was experiencing some anemia while in the hospital with hemoglobin down to 9.0 and anemia profile was done showing that she had iron deficiency anemia as well as B12 deficiency anemia. She was started on iron 325 mg b.i.d. as well as given 1 cc B12 injection IM. She will need to continue monthly B12 injections from the office and then she will also need to continue her daily iron. We will followup with her closely in the office. TIME SPENT: More than 60 minutes. RIANA
== END 2018-02-23 11:20 | disposition home or self-care (01) | DRG 202 ==
LOC: ED 17:04 → UNDOADMIN 20:33 → MEDSURG B 20:33
PROVIDERS: ADMIT Internal Medicine; ATTEND Internal Medicine
DX: J20.9 Acute bronchitis, unspecified (principal); J44.1 Chronic obstructive pulmonary disease with (acute) exacerbation; J44.0 Chronic obstructive pulmonary disease with (acute) lower respiratory infection; I10 Essential (primary) hypertension; E11.9 Type 2 diabetes mellitus without complications; D50.9 Iron deficiency anemia, unspecified; D51.9 Vitamin B12 deficiency anemia, unspecified; J04.0 Acute laryngitis; F41.9 Anxiety disorder, unspecified; E78.5 Hyperlipidemia, unspecified; K21.9 Gastro-esophageal reflux disease without esophagitis; Z86.711 Personal history of pulmonary embolism; Z79.01 Long term (current) use of anticoagulants; Z79.899 Other long term (current) drug therapy; Z99.81 Dependence on supplemental oxygen
CPT/HCPCS: 36415; 80053; 81001; 82607; 82728; 82746; 82803; 82962; 83036; 83540; 83550; 83605; 84145; 84466; 85007; 85025; 85045; 85610; 85730; 87040; 87070; 87502; 93005; 93010; 94640; 96361; 96365; 96375; 99285

== ENCOUNTER 2018-04-25 18:09 | Emergency (ER) ==
[2018-04-25 18:16] VITALS: BP 158/88; TEMP 97.8; BMI 30.9
[2018-04-25] MEDS ORDERED: ZOFRAN 4 MG/2 ML IM STA (18:32)
[2018-04-25] MEDS ORDERED: MORPHINE 4 MG/ML SYRINGE IM STA (18:32)
--- NOTE | 2018-04-25 18:35 | ED.PDOC ---
General ED Provider: Dr. AISHA LEONARDO Chief Complaint: Neck Pain Non-Injury Stated Complaint: NECK PAIN Time Seen by Physician: 18:12 (NECK PAIN , HEAD ACHE ) Mode of Arrival: Walk-In Information Source: Patient Exam Limitations: No limitations Primary Care Provider: MARZENA CUEVAS Referred to ED by: Other (HAD CERVICAL INJECTION HAS PAIN NOW .INJECTIONS WERE 1 DAY AGO NEGATIVE TRAUMA) Nursing and Triage Documentation Reviewed and Agree: Yes Reviewed sepsis parameters & appropriate labs ordered?: Yes System Inflammatory Response Syndrome: Not Applicable Sepsis Protocol: For patient's 13 years and over: Temp is 96.8 and below OR 101 and greater Pulse >90 BPM Resp >20/minute Acutely Altered Mental Status Are patient's symptoms suggestive of a new infection, such as: -Pneumonia -Skin, Soft Tissue -Endocarditis -UTI -Bone, Joint Infection -Implantable Device -Acute Abdominal Infection -Wound Infection -Meningitis -Blood Stream Catheter Infection -Unknown Musculoskeletal Complaint Exam - Neck Pain Complaint/Exam Mechanism of Injury: Reports: No known trauma Onset/Duration: TODAY Symptoms Are: Still present Timing: Intermittent Episodes Lasting: Hours Initial Severity: Moderate Current Severity: Moderate Location: Reports: Discrete Character: Reports: Aching Aggravating: Reports: None Alleviating: Reports: None Associated Signs and Symptoms: Reports: Headache. Denies: Swelling, Redness, Bruising, Fever, Nuchal rigidity, Weakness, Paresthesia Related History: Reports: Similar episode Meningitis Risk Factors: Reports: None Cervical Spine Injury Risk Factors: Reports: None Carotid Bruit Present: No Pain on Passive Flexion: No Positive Kernig's Sign: No Tenderness: Present: Midline Focal Weakness: Present: None Focal Sensory Loss: Reports: None Nexus Low Risk Criteria: No evidence of intoxicat., No Altered LOC, No focal neuro deficit, No distracting injuries Differential Diagnoses: Sprain, Strain, Other (HEADACHE) Review of Systems - Review Of Systems Constitutional: Reports: No symptoms Eyes: Reports: No symptoms Ears, Nose, Mouth, Throat: Reports: No symptoms Respiratory: Reports: No symptoms Cardiac: Reports: No symptoms GI: Reports: No symptoms : Reports: No symptoms Musculoskeletal: Reports: Neck pain Skin: Reports: No symptoms Neurological: Reports: Headache Endocrine: Reports: No symptoms Hematologic/Lymphatic: Reports: No symptoms All Other Systems: Reviewed and Negative Past Medical History - Past Medical History Previously Healthy: Yes Endocrine: Reports: Hypothyroid, Dyslipidemia Cardiovascular: Reports: Hypertension Respiratory: Reports: None Hematological: Reports: None Gastrointestinal: Reports: GERD Genitourinary: Reports: None Neuro/Psych: Reports: Anxiety Musculoskeletal: Reports: None Cancer: Reports: None Last Menstrual Period: na Other Pertinent Past Medical History: MVP - Surgical History General Surgical History: Reports: Hysterectomy, Appendectomy, Cholecystectomy, Orthopedic (Rt gr toe surgery 09/02/14) - Family History Family History: Reports: Unknown - Social History Smoking Status: Never smoker Hx Substance Use: No Alcohol Screening: None Physical Exam - Physical Exam Appearance: Well-appearing, No pain distress, Well-nourished Eyes: JEAN CARLOS, EOMI, Conjunctiva clear ENT: Ears normal, Nose normal, Oropharynx normal Respiratory: Airway patent, Breath sounds clear, Breath sounds equal, Respirations nonlabored Cardiovascular: RRR, Pulses normal, No rub, No murmur GI/: Soft, Nontender, No masses, Bowel sounds normal, No Organomegaly Musculoskeletal: Normal strength, ROM intact, No edema, No calf tenderness Skin: Warm, Dry, Normal color Neurological: Sensation intact, Motor intact, Reflexes intact, Cranial nerves intact, Alert, Oriented Psychiatric: Affect appropriate, Mood appropriate Critical Care Note - Critical Care Note Total Time (mins): 0 Course - Course Orders, Labs, Meds: Orders Category Date Time Status Morphine Sulfate [Morphine 4 mg/ml Syringe] MEDS 04/25/18 18:32 Stat 4 mg IM ONCE STA Ondansetron HCl/Pf [Zofran 4 mg/2 ml] MEDS 04/25/18 18:32 Stat 4 mg IM ONCE STA Medications Generic Name Dose Route Start Last Admin Trade Name Freq PRN Reason Stop Dose Admin Ondansetron HCl 4 mg 04/25/18 18:32 Zofran 4 Mg/2 Ml IM 04/25/18 18:33 ONCE STA Discontinued Medications Generic Name Dose Route Start Last Admin Trade Name Freq PRN Reason Stop Dose Admin Morphine Sulfate 4 mg 04/25/18 18:32 Morphine 4 Mg/Ml Syringe IM 04/25/18 18:33 ONCE STA Vital Signs: Temp Pulse Resp BP Pulse Ox 04/25/18 18:11 97.8 F 75 16 158/88 H 96 Departure - Departure Time of Disposition: 18:35 Disposition: HOME SELF-CARE Discharge Problem: Neck pain Instructions: Neck Pain (ED) Condition: Good Pt referred to PMD for follow-up: Yes IPMP verified?: No Additional Instructions: Please call your Family Physician as soon as possible to schedule a follow-up appointment. Allergies/Adverse Reactions: Allergies venom-honey bee [bee venom (honey bee)] Adverse Reaction (Verified 04/25/18 18: 14) Home Medications: Ambulatory Orders Lorazepam [Ativan] 1 mg PO DAILY 05/06/13 Nitroglycerin [Nitrostat] 0.4 mg SL Q5MIN X 3 DOSES PRN 03/12/15 Esomeprazole Magnesium [Nexium] 40 mg PO DAILY 02/27/16 Hydrocodone Bit/Acetaminophen [[place] 5-325] 1 tab PO Q4H 05/12/17 Promethazine HCl 12.5 mg PO Q6HR PRN 08/16/17 Rivaroxaban [Xarelto] 20 mg PO DAILY 08/16/17 Albuterol Sulfate [Ventolin Hfa] 18 gm IH DIRECTED PRN 02/20/18 Albuterol Sulfate 0.083% Neb [Albuterol 0.083% Neb] 1 vial NEB RTQ6H #120 vial.neb 02/23/18 Diazepam [Valium] 5 mg PO PRN PRN 04/25/18
== END 2018-04-25 19:02 | disposition home or self-care (01) ==
LOC: ED 18:09
DX: M54.2 Cervicalgia (principal); R51 Headache
CPT/HCPCS: 96372; 99283

== ENCOUNTER 2018-05-22 12:41 | Emergency (ER) | payer OTHER ==
[2018-05-22 12:45] VITALS: BP 140/94; TEMP 98.1; BMI 30.7
--- NOTE | 2018-05-22 13:45 | ED.PDOC ---
General ED Provider: Dr. EMANI SANDOVAL Chief Complaint: Abscess Stated Complaint: Pain and swelling of Lt Axillary region. Onset X 1 week; has been using topical antibiotics and drawing agent prid salve. Pain has intensified to become quite severe. Has bloody drainage from one site yesterday. Denies fever, chills or night sweats. Time Seen by Physician: 13:30 Mode of Arrival: Walk-In Information Source: Patient Exam Limitations: No limitations Primary Care Provider: MARZENA CUEVAS Nursing and Triage Documentation Reviewed and Agree: Yes Does patient meet sepsis criteria?: No System Inflammatory Response Syndrome: Not Applicable Sepsis Protocol: For patient's 13 years and over: Temp is 96.8 and below OR 101 and greater Pulse >90 BPM Resp >20/minute Acutely Altered Mental Status Are patient's symptoms suggestive of a new infection, such as: -Pneumonia -Skin, Soft Tissue -Endocarditis -UTI -Bone, Joint Infection -Implantable Device -Acute Abdominal Infection -Wound Infection -Meningitis -Blood Stream Catheter Infection -Unknown Skin Complaint Exam - Skin/Soft Tissue Complaint/Exam Onset/Duration: 2 -3 days Symptoms Are: Still present Timing: Constant Initial Severity: Moderate Current Severity: Moderate Location: Lt Axilla 4 X 5 cm Character: Reports: Redness, Swelling, Painful Aggravating: Reports: Touch Alleviating: Reports: None Associated Signs and Symptoms: Reports: Drainage, Tenderness Related History: Reports: Similar episode (Rt side years ago) Related Surgical History: Reports: None Recent Exposure to Others w/Similar Symptoms: No Skin Findings: Present: Erythema, Induration, Fluctuant mass, Lymphadenopathy Joint Tenderness Present: No Differential Diagnoses: Cellulitis, Other (hidra adenitis) Review of Systems - Review Of Systems Constitutional: Reports: No symptoms Eyes: Reports: No symptoms Ears, Nose, Mouth, Throat: Reports: No symptoms Respiratory: Reports: No symptoms Cardiac: Reports: No symptoms GI: Reports: No symptoms : Reports: No symptoms Musculoskeletal: Reports: No symptoms Skin: Reports: No symptoms, Other (multiple sites of cystic lesions-) Neurological: Reports: No symptoms Endocrine: Reports: No symptoms Hematologic/Lymphatic: Reports: No symptoms All Other Systems: Reviewed and Negative Past Medical History - Past Medical History Previously Healthy: Yes Endocrine: Reports: Hypothyroid, Dyslipidemia Cardiovascular: Reports: Hypertension Respiratory: Reports: None Hematological: Reports: None Gastrointestinal: Reports: GERD Genitourinary: Reports: None Neuro/Psych: Reports: Anxiety Musculoskeletal: Reports: None Cancer: Reports: None Last Menstrual Period: n/a Other Pertinent Past Medical History: MVP - Surgical History General Surgical History: Reports: Hysterectomy, Appendectomy, Cholecystectomy, Orthopedic (Rt gr toe surgery 09/02/14) - Family History Family History: Reports: Unknown - Social History Smoking Status: Never smoker Hx Substance Use: No Alcohol Screening: None Physical Exam - Physical Exam Appearance: Ill-appearing Ill-appearing: Mild Pain Distress: Moderate Eyes: JEAN CARLOS, EOMI, Conjunctiva clear ENT: Ears normal, Nose normal, Oropharynx normal Neck: Supple Respiratory: Airway patent, Breath sounds clear, Breath sounds equal, Respirations nonlabored Cardiovascular: RRR, Pulses normal, No rub, No murmur GI/: Soft, Nontender, No masses, Bowel sounds normal, No Organomegaly Musculoskeletal: Normal strength, ROM intact, No edema, No calf tenderness Skin: Warm (Swelling and tenderness Lt axillary region-), Dry Psychiatric: Affect appropriate, Mood appropriate Re-Evaluation - Re-Evaluation Time of Re-Evaluation: 16:10 Status: Improved Vital Signs Stable: Yes Appearance: NAD Lungs: Clear Skin: Warm and Dry Neuro: Alert and Oriented X3 CV: RRR Critical Care Note - Critical Care Note Total Time (mins): 0 Course - Course Hematology/Chemistry: 05/22/18 14:30 05/22/18 14:30 Orders, Labs, Meds: Lab Review 05/22/18 05/22/18 05/22/18 14:30 14:30 14:30 WBC 5.48 RBC 3.91 L Hgb 10.3 L Hct 32.6 L MCV 83.4 MCH 26.3 L MCHC 31.6 L RDW Coeff of Eliu 17.8 H Plt Count 267 Immature Gran % (Auto) 0.7 Neut % (Auto) 51.9 Lymph % (Auto) 33.2 [place] % (Auto) 6.2 Eos % (Auto) 7.5 H Baso % (Auto) 0.5 Immature Gran # (Auto) 0.0 Neut # (Auto) 2.8 Lymph # (Auto) 1.8 [place] # (Auto) 0.3 L Eos # (Auto) 0.4 Baso # (Auto) 0.0 ESR 29 H Sodium 143 Potassium 3.7 Chloride 110 H Carbon Dioxide 24 Anion Gap 12.7 BUN 14 Creatinine 0.85 Estimated GFR (MDRD) 68.00 BUN/Creatinine Ratio 16.47 Glucose 134 H Calcium 9.3 Total Bilirubin 0.5 AST 11 L ALT 14 Alkaline Phosphatase 141 Total Protein 6.8 Albumin 3.4 Globulin 3.4 Albumin/Globulin Ratio 1.00 Orders Category Date Time Status BLOOD CULTURE (ED ONLY) Stat LAB 05/22/18 14:30 Received CBC W/ AUTO DIFF Stat LAB 05/22/18 14:30 Completed CMP [COMPREHENSIVE METABOLIC PANEL] Stat LAB 05/22/18 14:30 Completed CULTURE WOUND [WOUND CULTURE] Stat LAB 05/22/18 14:17 Ordered ESR Stat LAB 05/22/18 14:30 Completed Hydrocodone Bit/Acetaminophen [[place]m 10-325] MEDS 05/22/18 14:46 Discontinued 1 tab PO ONCE STA Medications Discontinued Medications Generic Name Dose Route Start Last Admin Trade Name Freq PRN Reason Stop Dose Admin Hydrocodone Bitart/Acetaminophen 1 tab 05/22/18 14:46 05/22/18 15:03 [place] 10-325 PO 05/22/18 14:47 1 tab ONCE STA Administration Vital Signs: Temp Pulse Resp BP Pulse Ox 05/22/18 12:42 98.1 F 88 20 140/94 H 95 Departure - Departure Time of Disposition: 15:50 Disposition: HOME SELF-CARE Discharge Problem: Hidradenitis Instructions: Hidradenitis Suppurativa (ED) Condition: Good Pt referred to PMD for follow-up: Yes (2-3 days) IPMP verified?: No Additional Instructions: Wash area with warm water and antiseptic soap solution twice daily Apply Cleocin T twice daily Take oral antibiotics See Dr Cuevas in next 2-3 days Return to ER if worsens Prescriptions: Clindamycin Phosphate [Cleocin T] 30 ml TP BID #1 oz Doxycycline Hyclate 100 mg PO BID 15 Days #30 capsule Allergies/Adverse Reactions: Allergies venom-honey bee [bee venom (honey bee)] Adverse Reaction (Verified 05/22/18 12: 46) Home Medications: Ambulatory Orders Lorazepam [Ativan] 1 mg PO DAILY 05/06/13 Nitroglycerin [Nitrostat] 0.4 mg SL Q5MIN X 3 DOSES PRN 03/12/15 Esomeprazole Magnesium [Nexium] 40 mg PO DAILY 02/27/16 Hydrocodone Bit/Acetaminophen [Balm 5-325] 1 tab PO Q4H 05/12/17 Promethazine HCl 12.5 mg PO Q6HR PRN 08/16/17 Rivaroxaban [Xarelto] 20 mg PO DAILY 08/16/17 Albuterol Sulfate [Ventolin Hfa] 18 gm IH DIRECTED PRN 02/20/18 Albuterol Sulfate 0.083% Neb [Albuterol 0.083% Neb] 1 vial NEB RTQ6H #120 vial.neb 02/23/18 Diazepam [Valium] 5 mg PO PRN PRN 04/25/18 Clindamycin Phosphate [Cleocin T] 30 ml TP BID #1 oz 05/22/18 Doxycycline Hyclate 100 mg PO BID 15 Days #30 capsule 05/22/18 Disposition Discussed With: Patient
[2018-05-22] MEDS ORDERED: NORCO 10-325 PO STA (14:46)
== END 2018-05-22 16:12 | disposition home or self-care (01) ==
LOC: ED 12:41
DX: L73.2 Hidradenitis suppurativa (principal)
CPT/HCPCS: 36415; 80053; 85025; 85651; 87040; 87070; 87186; 99283

== ENCOUNTER 2018-05-24 16:58 | Inpatient (IN) | payer OTHER ==
[2018-05-24] MEDS ORDERED: NITROSTAT SL PRN (17:25)
[2018-05-24] MEDS ORDERED: VISTARIL INJ IM PRN (17:25)
[2018-05-24] MEDS ORDERED: MORPHINE 4 MG/ML VIAL IVP PRN (17:25)
[2018-05-24] MEDS ORDERED: TYLENOL PO PRN (17:25)
[2018-05-24] MEDS ORDERED: ATROPINE SULFATE PFS IVP PRN (17:25)
[2018-05-24] MEDS ORDERED: CLEOCIN 300 MG in SODIUM CHLORIDE 50 ML IV SCH (17:30)
[2018-05-24 17:33] VITALS: BMI 30.8
[2018-05-24] MEDS ORDERED: PROAIR HFA IH PRN (17:56)
[2018-05-24] MEDS ORDERED: PROMETHAZINE HCL 12.5 MG PO PRN (17:56)
[2018-05-24] MEDS ORDERED: CLEOCIN ONE ×2 (18:19→21:33)
[2018-05-24] MEDS: NORCO 5-325 PO SCH ×2 (18:26→23:16)
[2018-05-24] MEDS: TORADOL IVP SCH (18:26)
[2018-05-24] MEDS ORDERED: CLEOCIN 300 MG in SODIUM CHLORIDE 50 ML IV ONE (20:24)
[2018-05-24] MEDS: DOXYCYCLINE HYCLATE PO SCH (21:38)
[2018-05-24] MEDS ORDERED: SODIUM CHLORIDE 50 ML IV ONE (21:39)
[2018-05-25] MEDS: NORCO 5-325 PO SCH ×6 (04:03→21:28)
[2018-05-25] MEDS ORDERED: CLEOCIN ONE (04:19)
[2018-05-25] MEDS: TORADOL IVP SCH ×3 (04:30→20:47)
[2018-05-25] MEDS: CLEOCIN 600 MG in SODIUM CHLORIDE 50 ML IV SCH ×2 (05:29)
--- NOTE | 2018-05-25 07:43 | DI ---
Exam: Two views of the chest. Comparison: 02/20/2018 Reason for exam: Cough. FINDINGS: No pneumothorax, pleural effusion, or focal consolidation. Operative changes are seen aft er spinal cord stimulator placement, shoulder arthroplasty, and anterior cervical discectomy and fusi on. The cardiac silhouette is not enlarged. Impression: No acute cardiopulmonary process.
[2018-05-25] MEDS ORDERED: PHENERGAN TAB PO PRN (07:46)
[2018-05-25] MEDS ORDERED: CLEOCIN 600 MG in SODIUM CHLORIDE 50 ML IV SCH (08:00)
[2018-05-25] MEDS: DOXYCYCLINE HYCLATE PO SCH ×2 (08:44→21:25)
[2018-05-25] MEDS: ASPIRIN EC PO SCH (08:44)
[2018-05-25] MEDS: ATIVAN PO SCH (08:45)
[2018-05-25] MEDS: FERROUS SULFATE PO SCH ×2 (08:45→17:18)
[2018-05-25] MEDS: PROTONIX PO SCH (08:49)
--- NOTE | 2018-05-25 08:58 | PCM.PROG ---
Attending Provider: ATTENDING PROVIDER: Dr. MARZENA GROVES This patient is seen with Paty Montalvo, Nurse Practitioner. DATE OF SERVICE: 05/25/18 SUBJECTIVE: This 63 year old WHITE/ F was hospitalized 05/24/18. The patient is lying in bed, alert. Dr. Gan saw her yesterday evening and increased Clindamycin to 600 mg IV q.8hr. No fever. Axilla is still swollen but redness seems to be slightly improved. REVIEW OF SYSTEMS: CONSTITUTIONAL: No night sweats. No fatigue, malaise, lethargy. No fever or chills. HEENT: Eyes: No visual changes. No eye pain. No eye discharge. ENT: No runny nose. No epistaxis. No sinus pain. No odynophagia. No congestion. RESPIRATORY: No cough, no congestion. No hemoptysis. No shortness of breath. CARDIOVASCULAR: No angina symptoms. No CHF symptoms. No atypical chest pain for CAD. No palpitations. No orthopnea.. GASTROINTESTINAL: No abdominal pain. No nausea or vomiting. No diarrhea or constipation. No hematemesis. No hematochezia. GENITOURINARY: No urgency. No frequency. No dysuria. No hematuria. No obstructive symptoms. No discharge. No pain. No significant abnormal bleeding. MUSCULOSKELETAL: No musculoskeletal pain; no joint swelling. NEUROLOGICAL: Awake, alert, oriented to time, place and person. No headache. No neck pain. No syncope. No seizures. No dizziness. PSYCHIATRIC: Not anxious. No depression. No suicidal thoughts. No homicidal thoughts. SKIN: No rash. Abscess, swelling left axilla. ENDOCRINE: No unexplained weight loss. No weight gain. HEMATOLOGIC/LYMPHATIC: No anemia. No purpura. No petechiae. No prolonged or excessive bleeding. No palpable lymph nodes. PHYSICAL EXAMINATION: GENERAL: The patient is awake, alert and oriented, lying in bed in no distress. VITAL SIGNS: Temperature 97.7 F, Pulse 62, Respiratory Rate 18, BP 98/61, Pulse Ox 97% HEENT: Head normocephalic, atraumatic. Eyes: Extraocular muscles are intact. Pupils are equal, round and reactive to light and accommodation. Ears: No lesions. Nose appeared normal. Throat: No exudate or erythema. NECK: Supple. No JVD, no carotid bruit. No lymphadenopathy or thyromegaly. LUNGS: Clear to auscultation. Percussion note normal. Chest symmetrical. HEART: S1, S2, no S3. No murmurs. No cyanosis or clubbing. No ascites. Pulses: Dorsalis pedis and posterior tibial pulses +1 to +2 both sides. ABDOMEN: Soft. Non-tender. Bowel sounds active. No CVA tenderness. No mass felt. EXTREMITIES: No edema. Full range of motion of all extremities, equal. NEUROLOGIC: No focal deficit. Cranial nerves II through XII are grossly intact. No headache, no double vision or headache. SKIN: Warm and dry. Intact. Turgor-normal. Left axilla with multiple small abscesses likely tunneled with improving surrounding erythema. Extreme tenderness with axillary lymphadenopathy. No drainage. LYMPHATIC: No palpable lymph nodes/no lymphedema. MUSCULOSKELETAL: Normal joints with no swelling. Muscle tone is normal. LAB REVIEW: 05/25/18 04:30 05/25/18 04:30 05/25/18 04:30: Sodium 139, Potassium 3.9, Chloride 108 H, Carbon Dioxide 23, Anion Gap 11.9, BUN 14, Creatinine 0.97, Estimated GFR (MDRD) 58.00, BUN/ Creatinine Ratio 14.43, Glucose 117 H, Calcium 8.4, Total Bilirubin 0.4, AST 15 , ALT 13, Alkaline Phosphatase 139, Total Protein 6.0, Albumin 3.0 L, Globulin 3.0, Albumin/Globulin Ratio 1.00 05/25/18 04:30: WBC 3.91 L, RBC 3.61 L, Hgb 9.5 L, Hct 30.2 L, MCV 83.7, MCH 26.3 L, MCHC 31.5 L, RDW Coeff of Eliu 17.8 H, Plt Count 239, Immature Gran % ( Auto) 0.3, Neut % (Auto) 34.4, Lymph % (Auto) 47.8, [place] % (Auto) 7.7, Eos % ( Auto) 9.0 H, Baso % (Auto) 0.8, Immature Gran # (Auto) 0.0, Neut # (Auto) 1.4 L , Lymph # (Auto) 1.9, [place] # (Auto) 0.3 L, Eos # (Auto) 0.4, Baso # (Auto) 0.0 05/24/18 18:30: Urine Color Yellow, Urine Clarity Slightly, Urine pH 6.0, Ur Specific [place] <=1.005, Urine Protein Negative, Urine Glucose (UA) Negative, Urine Ketones Negative, Urine Blood Negative, Urine Nitrite Negative, Urine Bilirubin Negative, Urine Urobilinogen 1.0, Ur Leukocyte Esterase 2+, Urine Microscopic WBC 5-10, Ur Squamous Epith Cells Not present 05/24/18 17:50: Sodium 139, Potassium 3.5, Chloride 108 H, Carbon Dioxide 22 L, Anion Gap 12.5, BUN 12, Creatinine 0.83, Estimated GFR (MDRD) 70.00, BUN/ Creatinine Ratio 14.45, Glucose 101, Calcium 9.4, Total Bilirubin 0.5, AST 13 L , ALT 15, Alkaline Phosphatase 157 H, Total Protein 6.8, Albumin 3.5, Globulin 3.3, Albumin/Globulin Ratio 1.06 05/24/18 17:50: WBC 6.09, RBC 3.86 L, Hgb 10.2 L, Hct 31.6 L, MCV 81.9, MCH 26.4 L, MCHC 32.3, RDW Coeff of Eliu 17.9 H, Plt Count 251, Immature Gran % (Auto ) 0.3, Neut % (Auto) 44.4, Lymph % (Auto) 40.7, [place] % (Auto) 6.9, Eos % (Auto) 7.2 H, Baso % (Auto) 0.5, Immature Gran # (Auto) 0.0, Neut # (Auto) 2.7, Lymph # (Auto) 2.5, [place] # (Auto) 0.4, Eos # (Auto) 0.4, Baso # (Auto) 0.0 ASSESSMENT: 1. Abscess left axilla with cellulitis 2. Lymphadenopathy PLAN: 1. Continue warm compresses 2. Dr. Gan to see this afternoon. Plan and coordination of the patient's care discussed in the presence of Auto Transmission Mechanic and nurse. CONDITION: Stable SCRIBED BY: TABITHA FIGUEROA Technical Maintenance Technician scribed while in presence of service performed by Dr. Groves/Paty Montalvo APRN on 05/25/18 ([id number])
[2018-05-25] MEDS ORDERED: NON-FORMULARY MEDICATION (Esomeprazole Magnesium [Nexium] 40 MG) PO SCH (09:00)
[2018-05-25] MEDS ORDERED: NON-FORMULARY MEDICATION (Rivaroxaban [Xarelto] 20 MG) PO SCH (09:00)
[2018-05-25] MEDS: VANCOMYCIN 1 GM in SODIUM CHLORIDE 250 ML IV SCH ×2 (10:53→21:26)
--- NOTE | 2018-05-25 13:43 | HP ---
DATE OF SERVICE: 05/24/18 REASON FOR HOSPITALIZATION/HISTORY OF PRESENT ILLNESS: Went to ER 7-10 put on Doxycycline for abscess left axilla. No better-area more red, more tender and low grade temperature. PAST MEDICAL HISTORY: Hypertension Diabetes mellitus type 2 GERD Dyslipidemia Depression Osteoarthritis Sciatica Vitamin B12 deficiency PAST SURGICAL HISTORY: Hysterectomy Bladder surgery Back surgery x2 Left shoulder Right shoulder Fatty tumor Gallbladder Neck surgery C-spine Right foot. REVIEW OF SYSTEMS: CONSTITUTIONAL: Fever low, no fatigue. HEENT: No sinus drainage, no sore throat. RESPIRATORY: No cough, no congestion. CARDIOVASCULAR: No atypical chest pain for coronary artery disease. No angina , CHF symptoms, palpitations or shortness of breath. GASTROINTESTINAL: No melena or abdominal pain. No GERD. GENITOURINARY: No hematuria, no prostatism, no polyuria. CUSTOMER SERVICE TECHNICIAN: No blackout, no dizziness, no headache, no double vision. MUSCULOSKELETAL: Osteoarthritis pain, no joint swelling. ENDOCRINE: No weight loss, no weight gain. SKIN: Not dry, Rash abscess left axilla. PSYCHIATRIC: Not anxious, no depression, no suicidal thoughts, no homicidal thoughts. SOCIAL HISTORY: Marital Status: . Alcohol Usage: No. Tobacco Usage: No. FAMILY HISTORY: Father -Cancer Brother 2 Sister 1 MEDICATIONS: Crestor 40mg PO daily Lorazepam 1mg PO daily PRN Nexium 40mg PO two times per day Celexa 20mg Po daily Xarelto 20mg Po daily Phenergan 12.5 every 6 hours PRN Ventolin every 4 hours PRN ALLERGIES: Codeine ASA PHYSICAL EXAMINATION: V/S: Pulse 83, blood pressure 122/80, temperature 98.8 and oxygen saturation 94 %. Height 5'6", BMI 30.8 and weight 191. GENERAL APPEARANCE: Oriented times three. HEENT: Normal. NECK: No JVP, no bruits. RESPIRATORY: Lungs are clear. Multiple small abscess left axilla surrounding erythema. CARDIOVASCULAR: S1, S2, no S3, no murmurs. No cyanosis, clubbing. No ascites. GI/ABDOMEN: No tenderness. Bowel sounds are active. EXTREMITIES: edema, pulses +1, equal. CUSTOMER SERVICE TECHNICIAN: Deep tendon reflexes, sensory, motor and gait all normal. RECTAL: Colonoscopy screening 08/[address] Parker /PELVIC: Hysterectomy, Mammogram 04/28 refused repeat. ASSESSMENT: 1. Left axillary abscess with cellulitis 2. C-spine surgery Dr. Purvis 3. Right foot surgery 4. History pulmonary embolism 07/30 5. Overactive bladder 6. Hypothyroidism 7. Hypertension 8. GERD 9. Dyslipidemia 10.Diabetes mellitus, type 2 11.Depression 12.Osteoarthritis 13.Sciatica 14.Vitamin B12 deficiency PLAN: 1. Admit 2. Routine telemetry orders 3. No cardiac markers 4. Clindamycin 300mg IV Q 8 hours 5. Continue Doxycycline 100mg PO twice a day 6. Culture wound left axilla 7. Warm compress three times a day to left axilla 8. Consult Dr. Gan 9. CBC/CMP now and daily 10.Toradol 30mg IV Q 8 hours 11.Continue home medications. TIME SPENT: More than 70 minutes. MTDD
--- NOTE | 2018-05-25 13:47 | PN ---
DATE OF SERVICE: 05/25/18 SUBJECTIVE: The patient was seen and examined with Nurse Practitioner. The patient's left axillary area infection, folliculitis seems to be a lot better, less angry looking with less swelling. We will continue IV antibiotics Clindamycin and Doxycycline. The patient was seen by Dr. Gan last night. TIME SPENT: More than 30 minutes. Plan and coordination of the patient's care discussed in the presence of nurse. RIANA
--- NOTE | 2018-05-25 14:58 | CONS ---
DATE OF CONSULTATION: 05/24/18 SOURCE OF INFORMATION: The patient REASON FOR CONSULTATION/HISTORY OF PRESENT ILLNESS: The patient's emergency records for 05/22/18. The patient claimed that she noted a small raised area on the left axilla about two weeks ago or so. The problem had increase in size and number. The patient was seen at the emergency room and the drainage in one area was cultured. The patient given Doxycycline in the emergency room 100mg twice a day plus Clindamycin local. The patient was subsequently admitted by her doctor to the hospital. MEDICATIONS: Atropine Sulfate 0.5mg intervenously as needed used for bradycardia Morphine 4mg IV Q 6 hours PRN Nitrostat 0.4mg SL for chest pain every 5 minutes times three doses Tylenol 650mg Q 4 hours PRN given for headache Vistaril 25mg IM Q 4 hours for nausea or vomiting Toradol 30mg IV piggy back Q 8 hours ProAir one puff Q 4-6 hours PRN [place] 5/325mg one tablet Q 4 hours PRN for pain Doxycycline 100mg twice a day Phenergan 12.5mg Q 6 hours PRN Aspirin 81mg daily Ferrous Sulfate 324mg twice a day Ativan 1mg PO daily Protonix 40mg PO daily before meal Vancomycin 1 gram Q 12 hours Celexa 20mg daily Crestor 40mg daily Flexeril 5mg daily Xarelto 20mg every day ALLERGIES: Bee stings PAST MEDICAL HISTORY: The patient was diagnosed with GERD, depression plus anxiety, hypothyroid. She also had previous pulmonary embolism 2016, She was admitted 02/20/18 for acute exacerbation of COPD. Type 2 diabetes mellitus in the past plus myelodysplastic syndrome. Over active bladder. Also hypertensive. PAST SURGICAL HISTORY: The patient had bilateral cataract surgery, appendectomy, cholecystectomy. She also had total abdominal hysterectomy. Bilateral left ankle, left rotator cuff surgery, back surgery lumbar times three, cervical surgery and bilateral foot surgery. The patient had left knee replacement and right shoulder replacement. SOCIAL/PERSONAL/FAMILY HISTORY: The patient never did smoke. PHYSICAL EXAMINATION: GENERAL APPEARANCE The patient is alert and oriented times four. HEENT: The patient has multiple raised red areas in the left axilla. The bigger one is fluctuant, the smaller one are questionable fluctuant. The area is markedly tender and hard to assess whether there is a larger abscess underneath and if there is then she would require drainage under general anesthesia. LABS: CBC on 05/24/18 showed moderate anemia probably iron deficiency. RDW elevated 17.9. MCV 81.9, MCH 26.4. Renal panel normal. EGFR 70, BUN 12 and creatinine 0.83. ASSESSMENT: 1. Hidradenitis Suppurativa, there are multiple PLAN: 1. Increase Clindamycin to 600mg Q 8 hours instead of 300mg. 2. Warm moist compress while awake, continue Thank you for allowing me to participate in the care of this patient. JOAQUINAD
--- NOTE | 2018-05-25 15:12 | US ---
EXAM: Ultrasound left axilla HISTORY: Left axillary cellulitis with possible abscess COMPARISON: None available TECHNIQUE: Dhillon-scale and color Doppler images FINDINGS: Diffuse subcutaneous edema noted throughout the left axillary region without discrete drai nable fluid collection. IMPRESSION: Cellulitis with probable phlegmon in the left axilla. No drainable abscess. Close follow-up is rashmi mmended.
--- NOTE | 2018-05-25 15:15 | CONS ---
DATE OF CONSULTATION: 05/25/18 HISTORY OF PRESENT ILLNESS: The patient is alert and not in acute distress and no cyanosis. VITALS: Temperature 97.9, pulse 59, blood pressure 98/62 essentially the same as yesterday, respiratory rate 18, oxygen saturation 96 at room air. LABS: CBC today showed normal WBC in fact lower. Moderately to severe anemia, still the same probably iron deficiency. Eosinophils are raising from 7.2 to 9. CMP is essentially unremarkable except for a lower Albumin. CONDITION: Stable. The culture did show that it is resistant to Clindamycin so this medication will be discontinued. The patient will be given Vancomycin and dose per PharmD recommendation. This patient's GFR for some reason had decreased remarkably from 70 on admission to 58 today. Reason is not known although the BUN has risen from 12 to 14 and creatinine from 0.83 to 0.97. We will do an ultrasound to see what happens and multiple incision and drainage. There is no large abscess underneath. [facility]
[2018-05-25] MEDS ORDERED: NON-FORMULARY MEDICATION (Rosuvastatin Calcium [Crestor] 40 MG) PO SCH (17:00)
[2018-05-25] MEDS ORDERED: NON-FORMULARY MEDICATION (Cyclobenzaprine Hcl [Cyclobenzaprine Hcl] 5 MG) PO SCH (17:00)
[2018-05-25] MEDS: CRESTOR PO SCH (17:14)
[2018-05-25] MEDS: FLEXERIL PO SCH (17:15)
[2018-05-25] MEDS: XARELTO PO SCH (17:16)
[2018-05-25] MEDS: CELEXA PO SCH (17:17)
[2018-05-26] MEDS: NORCO 5-325 PO SCH ×6 (02:58→21:43)
[2018-05-26] MEDS: TORADOL IVP SCH ×3 (04:55→21:55)
[2018-05-26] MEDS: PROTONIX PO SCH (05:58)
[2018-05-26] MEDS: ATIVAN PO SCH (09:56)
[2018-05-26] MEDS: DOXYCYCLINE HYCLATE PO SCH ×2 (09:56→20:52)
[2018-05-26] MEDS: ASPIRIN EC PO SCH (09:56)
[2018-05-26] MEDS: FERROUS SULFATE PO SCH ×2 (09:56→17:56)
[2018-05-26] MEDS: VANCOMYCIN 1 GM in SODIUM CHLORIDE 250 ML IV SCH ×2 (09:57→20:52)
[2018-05-26] MEDS ORDERED: LIDOCAINE HCL 1% SDV ONE (12:22)
[2018-05-26] MEDS: CELEXA PO SCH (17:55)
[2018-05-26] MEDS: FLEXERIL PO SCH (17:55)
[2018-05-26] MEDS: CRESTOR PO SCH (17:56)
[2018-05-26] MEDS: XARELTO PO SCH (17:57)
[2018-05-27] MEDS: NORCO 5-325 PO SCH ×3 (02:00→09:10)
[2018-05-27] MEDS: PROTONIX PO SCH (05:45)
[2018-05-27] MEDS: TORADOL IVP SCH ×3 (06:05→20:19)
[2018-05-27] MEDS: ATIVAN PO SCH (09:10)
[2018-05-27] MEDS: FERROUS SULFATE PO SCH ×2 (09:11→17:28)
[2018-05-27] MEDS: ASPIRIN EC PO SCH (09:11)
[2018-05-27] MEDS: DOXYCYCLINE HYCLATE PO SCH ×2 (09:11→20:19)
[2018-05-27] MEDS: VANCOMYCIN 1 GM in SODIUM CHLORIDE 250 ML IV SCH ×2 (09:18→20:19)
[2018-05-27] MEDS ORDERED: NORCO 5-325 PO PRN (11:08)
[2018-05-27] MEDS: CELEXA PO SCH (17:28)
[2018-05-27] MEDS: FLEXERIL PO SCH (17:28)
[2018-05-27] MEDS: CRESTOR PO SCH (17:29)
[2018-05-27] MEDS: XARELTO PO SCH (17:30)
[2018-05-28 05:35] VITALS: BP 111/72; TEMP 98.2
[2018-05-28] MEDS: TORADOL IVP SCH (05:42)
[2018-05-28] MEDS: PROTONIX PO SCH (05:42)
--- NOTE | 2018-05-28 09:02 | PCM.PROG ---
Attending Provider: ATTENDING PROVIDER: Dr. MARZENA GROVES This patient is seen with Paty Montalvo, Nurse Practitioner. DATE OF SERVICE: 05/28/18 SUBJECTIVE: This 63 year old WHITE/ F was hospitalized 05/24/18. The patient is sitting up in bed, alert. The patient states she is ready to go home. Dr. Gan I & D'd the axillary region yesterday, Swelling and redness have significantly improved, tenderness has resolved. REVIEW OF SYSTEMS: CONSTITUTIONAL: No night sweats. No fatigue, malaise, lethargy. No fever or chills. HEENT: Eyes: No visual changes. No eye pain. No eye discharge. ENT: No runny nose. No epistaxis. No sinus pain. No odynophagia. No congestion. RESPIRATORY: No cough, no congestion. No hemoptysis. No shortness of breath. CARDIOVASCULAR: No angina symptoms. No CHF symptoms. No atypical chest pain for CAD. No palpitations. No orthopnea.. GASTROINTESTINAL: No abdominal pain. No nausea or vomiting. No diarrhea or constipation. No hematemesis. No hematochezia. GENITOURINARY: No urgency. No frequency. No dysuria. No hematuria. No obstructive symptoms. No discharge. No pain. No significant abnormal bleeding. MUSCULOSKELETAL: No musculoskeletal pain; no joint swelling. NEUROLOGICAL: Awake, alert, oriented to time, place and person. No headache. No neck pain. No syncope. No seizures. No dizziness. PSYCHIATRIC: Not anxious. No depression. No suicidal thoughts. No homicidal thoughts. SKIN: Improving redness, left axilla. ENDOCRINE: No unexplained weight loss. No weight gain. HEMATOLOGIC/LYMPHATIC: No anemia. No purpura. No petechiae. No prolonged or excessive bleeding. No palpable lymph nodes. PHYSICAL EXAMINATION: GENERAL: The patient is awake, alert and oriented, lying in bed in no distress. VITAL SIGNS: Temperature 98.2 F, Pulse 60, Respiratory Rate 16, BP 111/72, Pulse Ox 96% HEENT: Head normocephalic, atraumatic. Eyes: Extraocular muscles are intact. Pupils are equal, round and reactive to light and accommodation. Ears: No lesions. Nose appeared normal. Throat: No exudate or erythema. NECK: Supple. No JVD, no carotid bruit. No lymphadenopathy or thyromegaly. LUNGS: Diminished breath sounds. Clear to auscultation. Percussion note normal. Chest symmetrical. HEART: S1, S2, no S3. No murmurs. No cyanosis or clubbing. No ascites. Pulses: Dorsalis pedis and posterior tibial pulses +1 to +2 both sides. ABDOMEN: Soft. Non-tender. Bowel sounds active. No CVA tenderness. No mass felt. EXTREMITIES: Left axilla has no erythema, improving induration of multiple small reddened areas. No edema. Full range of motion of all extremities, equal. NEUROLOGIC: No focal deficit. Cranial nerves II through XII are grossly intact. No headache, no double vision or headache. SKIN: Warm and dry. Intact. Turgor-normal. LYMPHATIC: No palpable lymph nodes/no lymphedema. MUSCULOSKELETAL: Normal joints with no swelling. Muscle tone is normal. LAB REVIEW: 05/28/18 05:15 05/28/18 05:15 05/28/18 05:15: Sodium 141, Potassium 4.0, Chloride 110 H, Carbon Dioxide 24, Anion Gap 11.0, BUN 22 H, Creatinine 0.90, Estimated GFR (MDRD) 63.00, BUN/ Creatinine Ratio 24.44, Glucose 110, Calcium 8.6, Total Bilirubin 0.3, AST 12 L , ALT 11 L, Alkaline Phosphatase 133, Total Protein 5.5 L, Albumin 2.8 L, Globulin 2.7, Albumin/Globulin Ratio 1.04 05/28/18 05:15: WBC 5.71, RBC 3.47 L, Hgb 9.3 L, Hct 28.9 L, MCV 83.3, MCH 26.8 L, MCHC 32.2, RDW Coeff of Eliu 18.1 H, Plt Count 231, Immature Gran % (Auto) 0.5 , Neut % (Auto) 50.6, Lymph % (Auto) 33.8, [place] % (Auto) 7.2, Eos % (Auto) 7.4 H , Baso % (Auto) 0.5, Immature Gran # (Auto) 0.0, Neut # (Auto) 2.9, Lymph # ( Auto) 1.9, [place] # (Auto) 0.4, Eos # (Auto) 0.4, Baso # (Auto) 0.0 ASSESSMENT: 1. Abscess left axilla with cellulitis 2. Lymphadenopathy PLAN: 1. D/C home 2. Followup with Dr. Groves/Paty Bermudez APRN after discharge. 3. Followup with Dr. Gan as outpatient. 4. Dr. Gan to choose p.o. antibiotics for discharge. 5. Keep area clean and dry. 6. No shaving. Plan and coordination of the patient's care discussed in the presence of Entry Clerk and leandro CONDITION: Stable SCRIBED BY: TABITHA FIGUEROA Director Of Creative Services scribed while in presence of service performed by Dr. Groves/Paty Montalvo APRN on 05/28/18 ([id number])
[2018-05-28] MEDS: DOXYCYCLINE HYCLATE PO SCH (09:07)
[2018-05-28] MEDS: FERROUS SULFATE PO SCH (09:07)
[2018-05-28] MEDS: ASPIRIN EC PO SCH (09:07)
[2018-05-28] MEDS: ATIVAN PO SCH (09:07)
[2018-05-28] MEDS: VANCOMYCIN 1 GM in SODIUM CHLORIDE 250 ML IV SCH (09:27)
--- NOTE | 2018-05-28 10:32 | CM.DICTOOL ---
ADMISSION: 05/24/18 16:58 DISCHARGE: 05/28/18 DATE OF SERVICE: 05/28/18 FINAL DIAGNOSIS HIDRADENITIS SUPPURATIVA, MULTIPLE, LEFT AXILLA (MRSA, 05/22/18) CELLULITIS, LEFT AXILLA HYPERTENSION ANEMIA MYELODYSPLASTIC SYNDROME DIABETES MELLITUS, TYPE 2 DYSLIPIDEMIA COPD GERD HISTORY OF PULMONARY EMBOLUS, 07/2017 HYPOTHYROIDISM OVER-ACTIVE BLADDER OSTEOARTHRITIS VITAMIN B12 DEFICIENCY MITRAL VALVE PROLAPSE DEPRESSION/ANXIETY BILATERAL CATARACT EXTRACTIONS APPENDECTOMY CHOLECYSTECTOMY TOTAL ABDOMINAL HYSTERECTOMY BACK SURGERY X 3 ANTERIOR CERVICAL DISCECTOMY AND FUSION, NOV 2017 ROTATOR CUFF SURGERY, LEFT TOTAL KNEE REPLACEMENT, LEFT SHOULDER REPLACEMENT, RIGHT BILATERAL ANKLE SURGERY TRIAL SPINAL STIMULATOR (APRIL 18, 2017) LAST VITALS Temp Pulse Resp BP Pulse Ox 98.2 F 60 16 111/72 96 05/28/18 05:35 05/28/18 05:35 05/28/18 07:19 05/28/18 05:35 05/28/18 05:35 TAKE THESE MEDICATIONS AT HOME Hydrocodone Bitart/Acetaminophen ([place] 5-325) 1 tab PO Q4H PRN PRN Reason: Pain Last Admin: 05/27/18 20:19 Dose: 1 tab Albuterol Sulfate (Ventolin Hfa) 18 gm IH Q4-6H PRN PRN Reason: Wheezing Citalopram Hydrobromide (Celexa) 20 mg PO QPM [facility] Last Admin: 05/27/18 17:28 Dose: 20 mg Cyclobenzaprine HCl (Flexeril) 5 mg PO QPM [facility] Last Admin: 05/27/18 17:28 Dose: 5 mg Doxycycline Hyclate (Doxycycline Hyclate) 100 mg PO BID X15 DAYS [facility] Last Admin: 05/28/18 09:07 Dose: 100 mg Esomeprazole Magnesium (Nexium) 40 mg PO DAILY Ferrous Sulfate (Ferrous Sulfate) 324 mg PO BIDWM [facility] Last Admin: 05/28/18 09:07 Dose: 324 mg Lorazepam (Ativan) 1 mg PO DAILY [facility] Last Admin: 05/28/18 09:07 Dose: 1 mg Nitroglycerin (Nitrostat) 0.4 mg SL Q5MIN X 3 DOSES PRN PRN Reason: Chest Pain Promethazine HCl (Phenergan Tab) 12.5 mg PO Q6H PRN PRN Reason: NAUSEA/VOMITTING Rivaroxaban (Xarelto) 20 mg PO QPM [facility] Last Admin: 05/27/18 17:30 Dose: 20 mg Rosuvastatin Calcium (Crestor) 40 mg PO QPM [facility] Last Admin: 05/27/18 17:29 Dose: 40 mg ALLERGIES venom-honey bee [bee venom (honey bee)] Adverse Reaction (Verified 05/22/18 12: 46) NEW PRESCRIPTIONS: DOXYCYCLINE 100 MG PO BID X 15 DAYS PRESCRIPTION WAS PROVIDED PRIOR TO THIS HOSPITALIZATION AND NOT FILLED [facility] PATIENT HAS BEEN INSTRUCTED TO FILL THE RX AND TAKE DIRECTED SMOKING: NEVER SMOKER DISEASE SPECIFIC EDUCATION: HIDRADENITIS SUPPURATIVA CELLULITIS MRSA WOUND CARE FOLLOW UP HOME MEDICATIONS NEW PRESCRIPTIONS LAB REVIEW: 05/28/18 05:15 05/28/18 05:15 05/28/18 08:43: Vancomycin Trough 19.93 05/28/18 05:15: Sodium 141, Potassium 4.0, Chloride 110 H, Carbon Dioxide 24, Anion Gap 11.0, BUN 22 H, Creatinine 0.90, Estimated GFR (MDRD) 63.00, BUN/ Creatinine Ratio 24.44, Glucose 110, Calcium 8.6, Total Bilirubin 0.3, AST 12 L , ALT 11 L, Alkaline Phosphatase 133, Total Protein 5.5 L, Albumin 2.8 L, Globulin 2.7, Albumin/Globulin Ratio 1.04 05/28/18 05:15: WBC 5.71, RBC 3.47 L, Hgb 9.3 L, Hct 28.9 L, MCV 83.3, MCH 26.8 L, MCHC 32.2, RDW Coeff of Eliu 18.1 H, Plt Count 231, Immature Gran % (Auto) 0.5 , Neut % (Auto) 50.6, Lymph % (Auto) 33.8, [place] % (Auto) 7.2, Eos % (Auto) 7.4 H , Baso % (Auto) 0.5, Immature Gran # (Auto) 0.0, Neut # (Auto) 2.9, Lymph # ( Auto) 1.9, [place] # (Auto) 0.4, Eos # (Auto) 0.4, Baso # (Auto) 0.0 PLAN: DISCHARGE HOME TODAY, 05/28/[address] CUEVAS IN HIS OFFICE ON 06/05/18 AT 2:30 P.M. RETURN TO SEE DR. JACKSON IN HIS OFFICE ON 06/05/18 AT 12:30 P.M. RESUME YOUR HOME MEDICATIONS PER LIST PROVIDED BY THE NURSING STAFF NEW PRESCRIPTIONS FILL YOUR PRIOR DOXYCYCLINE HYCLATE 100 MG PO BID X15 DAYS AT [facility]. TAKE DIRECTED ACTIVITY GET PLENTY OF REST. GRADUALLY INCREASE YOUR ACTIVITY LEVEL ACCORDING TO YOUR TOLERATION WOUND CARE WARM MOIST COMPRESSES TO LEFT AXILLA. KEEP THE AREA CLEAN. DO NOT USE ANY DEODORANT AT ALL DIET HEALTHY HEART SUMMARY THE PATIENT IS ALERT AND ORIENTED X3. SHE CURRENTLY RESIDES AT HOME AND HAS BEEN INDEPENDENT WITH ADL'S. AT HOME SHE HAS OXYGEN FOR NIGHT-TIME USE AND A ROLLING WALKER. SHE DESIRES TO RETURN TO HER HOME AT DISCHARGE. THE LEFT AXILLA CONTINUES TO HAVE MULTIPLE RAISED RED AREAS (HIDRADENITIS SUPPURATIVA). DR. JACKSON COMPLETED AN I&D ON 05/27/18. THE AREAS ARE DRY. THE PATIENT TELLS US SINCE THE I&D THEY ARE LESS PAINFUL. SHE HAD BEEN PRESCRIBED DOXYCYCLINE IN THE OUTPATIENT SETTING BUT HAD NOT FILLED THE PRESCRIPTION PRIOR TO THIS HOSPITALIZATION. THE CULTURE FROM MAY SAMPLING RESULTED IN MRSA POSITIVE FINDINGS. DR. JACKSON HAS REQUESTED THE FLUID OBTAINED WITH THE I&D PROCEDURE BE CULTURED WELL. RESULTS ARE PENDING AT THE TIME OF DISCHARGE. MS. WATT HAS BEEN INSTRUCTED BY DR. JACKSON, [employer], TO FILL THE DOXYCYCLINE AND TAKE DIRECTED. OTHERWISE, THE SKIN IS FREE FROM DECUBITUS ULCERS. MS. WATT WILL BE FOLLOWED BY OUR OFFICE WELL BY DR. JACKSON FOR HER WOUND CARE. SHE IS AWARE AND AGREEABLE FOR TODAY'S DISCHARGE PLANS. CURRENT CODE STATUS DO NOT RESUSCITATE RAMONA [place]TH, CERTIFIED TECHNICIAN SPECIALIST MARZENA CUEVAS M.D.
--- NOTE | 2018-05-28 13:18 | CONS ---
DATE OF CONSULTATION: 05/27/18 HISTORY OF PRESENT ILLNESS: This is one day post incision and drainage of Hidradenitis Suppurativa left axilla times five. The patient claims that there is no pain anymore and so the hydrocodone which was given as regular Q 4 hours was discontinued and changed to PRN. The area in the left axilla has less redness and no remarkably tenderness which was extremely tender previously. There is no drainage Suppurativa area has dried up with scabs. The patient wanted to go home and I told her that I would discuss that with Dr. Groves and discharging will be up to him. I do believe that she can go home either tonight or tomorrow morning with continued medication of Doxycycline 100mg twice a day for at least 7-10 days. Staph Aureus was sensitive to Doxycycline or Tetracycline as well as Bactrim and Vancomycin. It was resistant to Clindamycin. VITAL SIGNS: Temperature of 97.6, pulse 80, blood pressure 122/78, respiratory rate 16, oxygen saturation 96% at room air. ASSESSMENT: 1. Hidradenitis Suppurativa of the left axilla is subsiding and infection is now controlled. [facility]
--- NOTE | 2018-05-28 13:29 | CONS ---
DATE OF CONSULTATION: 05/28/18 HISTORY OF PRESENT ILLNESS: The patient is alert and oriented times four and not dyspneic or tachypneic without any pain in the left axilla. I asked her if she was using a deodorant and she told me that she does. I told her that she could not use that anymore on either axilla. She will have another problem with the same. It is possible that she would have a recurrence of the Hidradenitis on the left axilla sooner or later. The antibiotics will be given until the induration has completely resolved. The patient will be seen at my office in about a week from today and continue Doxycycline one twice a day. Avoid sunlight and no milk with the medication. It should be taken 2 hours after breakfast and two hours after supper. Should see her in one week and before if there is any concerns. VITALS SIGNS: Temperature 98.2, pulse 60, blood pressure 111/72, respiratory rate 16, oxygen saturation 96 at room air. No further complete vital signs were done. I did see the patient about 9:35-9: 40 this morning. There is no drainage in the left axilla. The swelling as decreased remarkably. MTDD
--- NOTE | 2018-05-29 12:14 | DS ---
DATE OF SERVICE: 05/28/18 FINAL DIAGNOSIS: 1. Hidradenitis Suppurativa, multiple left axilla (MRSA, 05/22/18) 2. Cellulitis, left axilla 3. Hypertension 4. Anemia 5. Myelodysplastic syndrome 6. Diabetes Mellitus, type 2 7. Dyslipidemia 8. COPD 9. GERD 10.History of pulmonary embolus, 07/2017 11.Hypothyroidism 12.Over-active bladder 13.Osteoarthritis 14.Vitamin B12 Deficiency 15.Mitral valve prolapse 16.Depression/anxiety 17.Bilateral cataract extractions 18.Appendectomy 19.Cholecystectomy 20.Total abdominal hysterectomy 21.Back surgery x3 22.Cholecystectomy 23.Anterior cervical discectomy and fusion, Nov 2017 24.Rotator cuff surgery, left 25.Total knee replacement, left 26.Shoulder replacement, right 27.Bilateral ankle surgery 28.Trial spinal stimulator (April 18, 2017) LAST VITALS: Temperature 98.2, pulse 60, respiratory rate 16, blood pressure 111/72 and pulse ox 96%. DISCHARGE INSTRUCTIONS: Discharge home today. Return to see Dr. Groves in his office on 06/05/18 at 2: 30pm. Return to see Dr. Gan in his office on at 12:30. Resume home medications as per list provided by the nursing staff. Wound Care; keep moist compress to left axilla. Keep the area clear. Do not use any deodorant at all. MEDICATIONS AT DISCHARGE: [place] 5-325 PO Q 4 hours pRn Ventolin 18 gram IG Q 4-6 hours PRN Celexa 20mg PO QPM Flexeril 5mg PO QPM Doxycycline 100mg PO twice a day x15 days Nexium 40mg Po daily Ferrous Sulfate 324mg PO twice a day Ativan 1mg PO daily Nitrostat 0.4mg SL Q 5 minutes x3 doses PRN Phenergan 12.5mg PO Q 6 hours PRN Xarelto 20mg PO QPM Crestor 40mg PO QPM ALLERGIES: Venom-honey bee NEW PRESCRIPTIONS: Doxycycline 100mg PO twice a day x15 days Prescriptions was provided prior to this hospitalization and not filled [facility]. Patient has been instructed to fill the RX and take as directed. DIET INSTRUCTIONS: Healthy heart ACTIVITY: Get plenty of rest. Gradually increase activity level according to toleration. SMOKING: N/A DISEASE SPECIFIC EDUCATION: Hidradenitis Suppurativa Cellulitis MRSA Wound care Followup Home medications New prescriptions HOSPITAL COURSE: This is a 63 year old white female who is a direct admit from out office. She had been seen two days prior to coming to our office in the emergency room for an abscess on her left axilla. It had continued to worsen despite PO Doxycycline. She was in extreme pain. She had generalized erythema and swelling of the left axilla with left axillary lymphadenopathy. She had multiple areas of what appeared to be induration. She was admitted and Dr. Gan was consulted. We initially started her on Clindamycin 300mg IV Q [address] Gan increased this to 600mg IV Q 8 hours. The following day from admission she had no drainage on admission but apparently had had some drainage when she went to the ER two days prior. The culture and sensitivity came back on the day after admission which showed it was resistant to the Clindamycin and she was put on IV Vancomycin Q 12 hours. She was left on the PO Doxycycline. Ultrasound was done on Monday which showed cellulitis with phlegmon lesions, no definite walled off abscess however Dr. Gan I&D the area on Monday. Today on day of discharge the area there is no redness and her tenderness has significantly improved. There is some small areas of induration but they are beginning to improve and decrease in size. Again there is no redness and no generalized swelling. Lymph node has gone down in size. She will be discharge PO antibiotics according to Dr. Gan which will be Doxycycline 100mg twice a day and then she will followup with him in his office as well followup us next week. TIME SPENT: More than 60 minutes. RIANA
--- NOTE | 2018-05-30 09:17 | PN ---
05/24/18: Level 5 05/25/18: Intermediate 05/26/18: Intermediate 05/27/18: Intermediate 05/28/18: D as in discharge MTDD
--- NOTE | 2018-05-30 15:14 | PN ---
DATE OF SERVICE: 05/26/18 SUBJECTIVE: 63 year old white female hospitalized with left axillary abscess, folliculitis with cellulitis. The patient had an I&D done by Dr. Gna today. Puss was taken out. The patient's over all status has improved. REVIEW OF SYSTEMS: CONSTITUTIONAL: No night sweats. No fatigue, malaise, lethargy. No fever or chills. HEENT: Eyes: No visual changes. No eye pain. No eye discharge. ENT: No runny nose. No epistaxis. No sinus pain. No sore throat. No odynophagia. No congestion. RESPIRATORY: No cough, no congestion. No hemoptysis. No shortness of breath. CARDIOVASCULAR: No angina symptoms. No CHF symptoms. No atypical chest pain for CAD. No palpitations. No orthopnea. GASTROINTESTINAL: No abdominal pain. No nausea or vomiting. No diarrhea or constipation. No hematemesis. No hematochezia. GENITOURINARY: No urgency. No frequency. No dysuria. No hematuria. No obstructive symptoms. No discharge. No pain. No significant abnormal bleeding. MUSCULOSKELETAL: No musculoskeletal pain; no joint swelling. Mild soreness in the axilla area. NEUROLOGICAL: No headache. No neck pain. No syncope. No seizures. No dizziness. PSYCHIATRIC: Not anxious. No depression. No suicidal thoughts. No homicidal thoughts. SKIN: No rash. No lesions. No wounds. ENDOCRINE: No unexplained weight loss. No weight gain. HEMATOLOGIC/LYMPHATIC: No anemia. No purpura. No petechiae. No prolonged or excessive bleeding. No palpable lymph nodes. PHYSICAL EXAMINATION: HEENT: Head normocephalic, atraumatic. Eyes: Extraocular muscles are intact. Pupils are equal, round and reactive to light and accommodation. Ears: No lesions. Nose appeared normal. Throat: No exudate or erythema. NECK: Supple. No JVD, no carotid bruit. No lymphadenopathy or thyromegaly. LUNGS: Clear to auscultation. Percussion note normal. Chest symmetrical. HEART: S1, S2, no S3. No murmurs. No cyanosis or clubbing. No ascites. Pulses: Dorsalis pedis and posterior tibial pulses +1 to +2 both sides. ABDOMEN: Soft. Nontender. Bowel sounds active. No CVA tenderness. No mass felt. EXTREMITIES: No edema. Full range of motion of all extremities, equal. The area on the left axilla looks a lot better, flat. The inflammation has gone down. NEUROLOGIC: No focal deficit. Cranial nerves II through XII are grossly intact. No headache, no double vision or headache. SKIN: Not dry. Intact. Turgor - normal. LYMPHATIC: No palpable lymph nodes/no lymphedema. MUSCULOSKELETAL: Normal joints with no swelling. Muscle tone is normal. LABS: Hgb 9, hct 29. The patient has chronic anemia, will do workup for anemia. Refuses colonoscopy for now. ASSESSMENT: 1. Left axilla abscess. PLAN: 1. Continue antibiotics Vancomycin and Clindamycin. CONDITION: Stable. TIME SPENT: More than 30 minutes. Plan and coordination of the patient's care discussed in the presence of nurse. RIANA
--- NOTE | 2018-05-30 15:17 | PN ---
DATE OF SERVICE: 05/27/18 SUBJECTIVE: The patient is doing well, up and about. Dr. Gan incised and got puss out. The patient's condition is stable. The folliculitis of the left axilla seems to be resolving. The patient was seen and examined with Dr. Gan. REVIEW OF SYSTEMS: CONSTITUTIONAL: No night sweats. No fatigue, malaise, lethargy. No fever or chills. HEENT: Eyes: No visual changes. No eye pain. No eye discharge. ENT: No runny nose. No epistaxis. No sinus pain. No sore throat. No odynophagia. No congestion. RESPIRATORY: No cough, no congestion. No hemoptysis. No shortness of breath. CARDIOVASCULAR: No angina symptoms. No CHF symptoms. No atypical chest pain for CAD. No palpitations. No orthopnea. GASTROINTESTINAL: No abdominal pain. No nausea or vomiting. No diarrhea or constipation. No hematemesis. No hematochezia. GENITOURINARY: No urgency. No frequency. No dysuria. No hematuria. No obstructive symptoms. No discharge. No pain. No significant abnormal bleeding. MUSCULOSKELETAL: No musculoskeletal pain; no joint swelling. NEUROLOGICAL: No headache. No neck pain. No syncope. No seizures. No dizziness. PSYCHIATRIC: Not anxious. No depression. No suicidal thoughts. No homicidal thoughts. SKIN: No rash. No lesions. No wounds. ENDOCRINE: No unexplained weight loss. No weight gain. HEMATOLOGIC/LYMPHATIC: No anemia. No purpura. No petechiae. No prolonged or excessive bleeding. No palpable lymph nodes. PHYSICAL EXAMINATION: HEENT: Head normocephalic, atraumatic. Eyes: Extraocular muscles are intact. Pupils are equal, round and reactive to light and accommodation. Ears: No lesions. Nose appeared normal. Throat: No exudate or erythema. NECK: Supple. No JVD, no carotid bruit. No lymphadenopathy or thyromegaly. LUNGS: Clear to auscultation. Percussion note normal. Chest symmetrical. HEART: S1, S2, no S3. No murmurs. No cyanosis or clubbing. No ascites. Pulses: Dorsalis pedis and posterior tibial pulses +1 to +2 both sides. ABDOMEN: Soft. Nontender. Bowel sounds active. No CVA tenderness. No mass felt. EXTREMITIES: No edema. Full range of motion of all extremities, equal. NEUROLOGIC: No focal deficit. Cranial nerves II through XII are grossly intact. No headache, no double vision or headache. SKIN: Not dry. Intact. Turgor - normal. LYMPHATIC: No palpable lymph nodes/no lymphedema. MUSCULOSKELETAL: Normal joints with no swelling. Muscle tone is normal. ASSESSMENT: 1. Left axilla abscess. PLAN: 1. Discharge the patient home with followup with Dr. Gan and vt as an outpatient 2. Doxycycline 3. Dr. Gan called and discussed the case. CONDITION: Stable. TIME SPENT: More than 30 minutes. Plan and coordination of the patient's care discussed in the presence of nurse. RIANA
--- NOTE | 2018-05-30 15:19 | PN ---
DATE OF SERVICE: 05/28/18 SUBJECTIVE: The patient was seen and examined with Nurse Practitioner. The patient's over all condition status has improved. She was treated with IV antibiotics. The patient will be discharged home on Doxycycline to be followed by Dr. Gan and me. CONDITION: Stable. TIME SPENT: More than 30 minutes. Plan and coordination of the patient's care discussed in the presence of nurse. RIANA
== END 2018-05-28 12:21 | disposition home or self-care (01) | DRG 603 ==
LOC: MEDSURG B 16:58
PROVIDERS: ADMIT Internal Medicine; ATTEND Internal Medicine
DX: L03.112 Cellulitis of left axilla (principal); B95.62 Methicillin resistant Staphylococcus aureus infection as the cause of diseases classified elsewhere; I10 Essential (primary) hypertension; J44.9 Chronic obstructive pulmonary disease, unspecified; K21.9 Gastro-esophageal reflux disease without esophagitis; E03.9 Hypothyroidism, unspecified; F41.8 Other specified anxiety disorders; M19.90 Unspecified osteoarthritis, unspecified site; N32.81 Overactive bladder; R59.1 Generalized enlarged lymph nodes; D64.9 Anemia, unspecified; D46.9 Myelodysplastic syndrome, unspecified; E11.8 Type 2 diabetes mellitus with unspecified complications; E78.5 Hyperlipidemia, unspecified; E53.8 Deficiency of other specified B group vitamins; Z16.11 Resistance to penicillins; Z86.711 Personal history of pulmonary embolism; Z79.01 Long term (current) use of anticoagulants
CPT/HCPCS: 36415; 76882; 80053; 80202; 81001; 85025; 87070; 87086; 87186; 93005; 93010

== ENCOUNTER 2019-01-08 06:42 | Outpatient (CLI) ==
[2013-05-06 10:41] VITALS: TEMP 98
--- NOTE | 2019-01-09 09:16 | ECHO2D ---
Date of Exam: 01/09/19 Ordering Physician: DR. MARZENA CUEVAS Room #: OP Reason for Echo: CHEST PAIN, SOB M-Mode Normal Adult Results LV Dimensions Normal Adult Results AoV Opening excursions >1.6 >1.6 LVEDD-base- 3.5-5.8 5.1 Ao root dimensions 2.0-3.7 3.5 LVESD-base- 3.1-4.6 L. Atrium dimensions 1.9-3.8 4.2 Post. Wall thickness 0.8-1.1 1.2 IV septum (thickness) 0.7-1.2 1.3 Post. Wall excursion 0.72-1.3 NORMAL Septal motion NORMAL Systolic motion R. Ventricular cavity 1.5-2.0 NORMAL LVEF 60% 62% Paradoxical septal wall motion NORMAL 2-D : 2-D M Mode Echocardiogram was performed using apical four chamber and left parasternal long and short axis views. Mitral, tricuspid and aortic valves appear to be normal. Contractility of the left ventricle seems to be normal, so is the cavity size. Enlarged Left atrial cavity size. Aortic root appears to be normal. There is no pericardial effusion. There is no thrombus noted in the left ventricular or left aortic cavity. No mitral valve prolapse noted. M-MODE: MV: NORMAL AV: NORMAL TV: NORMAL PV: CHAMBER SIZE: ENLARGED LEFT ATRIAL CAVITY WALL MOTION: NORMAL PERICARDIUM: NORMAL INTERPRETATION: 1. LEFT VENTRICULAR HYPERTROPHY WITH ENLARGED LEFT ATRIAL CAVITY 2. NORMAL LEFT VENTRICULAR CONTRACTILITY 3. NORMAL VALVES MTDD
== END 2019-01-08 06:43 | disposition home or self-care (01) ==
LOC: CAR 06:42
PROVIDERS: ATTEND Internal Medicine
DX: R06.02 Shortness of breath (principal); R07.9 Chest pain, unspecified
CPT/HCPCS: 93005; 93010

== ENCOUNTER 2019-01-10 06:25 | Outpatient (CLI) | payer OTHER ==
[2013-05-06 10:41] VITALS: TEMP 98
--- NOTE | 2019-01-11 09:51 | ECHOSTRESS ---
Date of Exam: 01/10/19 Ordering Physician: DR. MARZENA CUEVAS Reason for Echo: SOB, CHEST PAIN, STRESS TEST--INCONCLUSIVE M-Mode Normal Adult Results LV Dimensions Normal Adult Results AoV Opening excursions >1.6 LVEDD-base- 3.5-5.8 Ao root dimensions 2.0-3.7 LVESD-base- 3.1-4.6 L. Atrium dimensions 1.9-3.8 Post. Wall thickness 0.8-1.1 IV septum (thickness) 0.7-1.2 Post. Wall excursion 0.72-1.3 Septal motion Systolic motion R. Ventricular cavity 1.5-2.0 LVEF 60% Paradoxical septal wall motion 2-D: NORMAL LEFT VENTRICULAR CONTRACTILITY--RESTING AND POST EXERCISE M-MODE: MV: AV: TV: PV: CHAMBER SIZE: WALL MOTION: NORMAL LEFT VENTRICULAR CONTRACTILITY--RESTING AND POST EXERCISE PERICARDIUM: INTERPRETATION: 1. NORMAL LEFT VENTRICULAR CONTRACTILITY--RESTING AND POST EXERCISE MTDD
--- NOTE | 2019-01-11 10:03 | STRESSMOD ---
Date of Test: 01/10/19 Ordering Physician: DR. MARZENA CUEVAS Occupation: DISABLED Reason for Exam: SOB, CHEST PAIN Smoking History: NONE Height: 66" Weight: 200 LBS Current Medications: CRESTOR, ATIVAN, NITROSTAT, NEXIUM NORCO, REGLAN Resting EKG: SINUS RHYTHM/ BRADYCARDIA Target Heart Rate: 134/158 S-T SEGMENT STAGE MPH/GRADE HEART RATE BPM BLOOD PRESSURE mmhg RHYTHM +/- ELEVATION DEPRESSION SYMPTOMS At Rest 54 BPM 152/88 MMHG SR X NONE 1 1.7/0% 96 BPM 172/90 MMHG SR X NONE 2 1.7/5% 3 1.7/10% 4 2.5/12% 5 3.4/14% Immediately After 100 BPM 174/90 MMHG SR X SHORT OF AIR Minutes Post Exercise 4:00 58 BPM 152/76 MMHG SR X NONE Minutes Post Exercise DURATION OF EXERCISE: 4:28 MAXIMUM HEART RATE REACHED: 100 BPM REASON FOR TERMINATION: SHORT OF BREATH 98% OXYGEN SATURATION WITH EXERCISE ON ROOM AIR METS 4.0 INTERPRETATION: 1. NO EVIDENCE OF ISCHEMIA BY ST-T WAVE FROM HEART RATE 54 BPM TO 100 BPM 2. NO CHEST PAIN OR DISCOMFORT 3. NO ARRHYTHMIAS 4. BLOOD PRESSURE RESPONSE: MILD SYSTOLIC HYPERTENSION WITH EXERCISE NORMAL LEFT VENTRICULAR CONTRACTILITY--RESTING AND POST EXERCISE MTDD
== END 2019-01-10 06:26 | disposition home or self-care (01) ==
LOC: CAR 06:25
PROVIDERS: ATTEND Internal Medicine
DX: R06.02 Shortness of breath (principal); R07.9 Chest pain, unspecified

== ENCOUNTER 2020-11-24 18:02 | Inpatient (IN) ==
[2020-11-24] MEDS ORDERED: ZOFRAN 4 MG/2 ML IVP STA (18:52)
[2020-11-24] MEDS ORDERED: ROCEPHIN 1 GM/50 ML D5W 1 GM/50 ML BAG IV STA (18:52)
[2020-11-24] MEDS ORDERED: SODIUM CHLORIDE 1,000 ML IV STA (18:52)
[2020-11-24 19:18] LABS: BASOPHILS % (AUTO) 0.4 % (0.0-3.0); EOSINOPHILS % (AUTO) 1.6 % (0.0-7.0); HEMATOCRIT 32.8 % (37.0-47.0); HEMOGLOBIN 10.5 g/dl (12.0-16.0); LYMPHOCYTES # (AUTO) 0.2 K/uL (0.60-3.4); LYMPHOCYTES % (AUTO) 5.8 (10.0-50.0); MEAN CORPUSCULAR HEMOGLOBIN 25.2 pg (27.0-31.0); MEAN CORPUSCULAR VOLUME 78.8 fl (81.0-99.0); MONOCYTES % (AUTO) 1.2 (0-10); NEUTROPHILS # (AUTO) 2.4 K/ul (2.0-6.9); PLATELET COUNT 197 10^3/uL (140-440); RDW COEFFICIENT OF VARIATION 18.5 % (11.6-14.8); RED BLOOD COUNT 4.16 10^6/ul (4.20-5.40); WHITE BLOOD COUNT 2.58 K/ul (4.6-10.2)
[2020-11-24 19:27] LABS: ALBUMIN 4.27 g/dL (3.5-5.0); ALKALINE PHOSPHATASE 202.8 U/L (53-141); AMYLASE 53.9 U/L (30-110); BLOOD UREA NITROGEN 16.8 mg/dL (7-17); CALCIUM 9.08 mg/dL (8.4-10.2); CARBON DIOXIDE 22.7 mmol/L (22-30.0); CHLORIDE 104.7 mmol/L (98-107); CREATININE 1.49 mg/dL (0.60-1.30); GLUCOSE 160.1 mg/dL (74-106); POTASSIUM 3.02 mmol/L (3.5-5.1); SODIUM 135.5 mmol/L (134.5-145); TOTAL PROTEIN 7.22 g/dL (6.3-8.2)
[2020-11-24 19:29] LABS: ASPARTATE AMINO TRANSFERASE > 750.0 U/L (14-36)
[2020-11-24 19:40] LABS: CREATINE KINASE 164.2 U/L (30-135)
--- NOTE | 2020-11-24 19:43 | CT ---
EXAM: Noncontrast CT of the abdomen and pelvis HISTORY: Pyelonephritis COMPARISON: None available TECHNIQUE: Axial noncontrast CT of the abdomen and pelvis with sagittal and coronal reformats. All C T scans are performed using dose optimization techniques as appropriate to the performed exam and inc ludes at least one of the following: Automated exposure control, adjustment of the mA and/or kV acco rding to size, and the use of iterative reconstruction technique. FINDINGS: Mild bilateral lower lobe ground-glass opacities are noted. Noncontrast technique limits evaluation of abdominal viscera. The unenhanced liver measures 21 cm cr aniocaudal, mildly increased. The gallbladder has been removed. Splenic calcified granulomas are no sohail. The unenhanced adrenals, kidneys and pancreas appear unremarkable. Ingested material is noted in the stomach. There is no abnormal bowel dilation. The appendix is not seen. No pericecal inflammation is identified. The uterus has been removed. There is calcified atherosclerotic plaque of the aorta and some of its branches. No free air or free fluid is identified. Lower abdominal and pelvic surgical clips are aga in seen. Postoperative and degenerative changes of the spine are again seen. There is a partially i wallace spinal stimulator. IMPRESSION: No acute intra-abdominal findings. No evidence of urolithiasis. Status post cholecystectomy and hysterectomy. Mild hepatomegaly. Mild bilateral lower lobe atelectasis and/or pneumonitis. Other chronic and incidental findings as described above. Noncontrast exam.
--- NOTE | 2020-11-24 19:52 | ED.PDOC ---
General ED Provider: Dr. EMANI THOMPSON Chief Complaint: Abdominal Pain Stated Complaint: was seen 2 days with similar symptoms---has e coli uti--given cipro--resistent Time Seen by Physician: 20:00 Mode of Arrival: Ambulance Information Source: Patient Primary Care Provider: MARZENA CUEVAS Nursing and Triage Documentation Reviewed and Agree: Yes Does patient meet sepsis criteria?: No System Inflammatory Response Syndrome: Not Applicable Sepsis Protocol: For patient's 13 years and over: Temp is 96.8 and below OR 101 and greater Pulse >90 BPM Resp >20/minute Acutely Altered Mental Status Are patient's symptoms suggestive of a new infection, such as: -Pneumonia -Skin, Soft Tissue -Endocarditis -UTI -Bone, Joint Infection -Implantable Device -Acute Abdominal Infection -Wound Infection -Meningitis -Blood Stream Catheter Infection -Unknown GI Complaint Exam Abdominal Pain Complaint/Exam Onset: Gradual Duration: 2 days ago Symptoms Are: Still present Timing: Constant Initial Severity: Mild Current Severity: Mild Location of Pain: Epigastric Character: Reports Dull and Aching Aggravating: Reports None Alleviating: Reports None Related History: Reports Similar episode Patient Rh Status: Unknown Abdominal Findings: Present None Differential Diagnoses: Bowel Obstruction, Constipation, Pancreatitis and UTI Quality Indicator For Non-Traumatic Chest Pain/Syncope: EKG Performed Review of Systems Review Of Systems Constitutional: Reports No symptoms Eyes: Reports No symptoms Ears, Nose, Mouth, Throat: Reports No symptoms Respiratory: Reports No symptoms Cardiac: Reports No symptoms GI: Reports Abdominal pain, Nausea, Poor appetite and Vomiting : Reports No symptoms Musculoskeletal: Reports No symptoms Skin: Reports No symptoms Neurological: Reports No symptoms Endocrine: Reports No symptoms Hematologic/Lymphatic: Reports No symptoms All Other Systems: Reviewed and Negative [facility] Social History Smoking and tobacco status: Never smoker History of recent travel: No Female Reproductive History Menstrual Hx Hysterectomy: Yes Hx Tubal Ligation: No Physical Exam Physical Exam Appearance: Reports Ill-appearing Ill-appearing: Mild Pain Distress: Mild Eyes: Reports JEAN CARLOS, EOMI and Conjunctiva clear ENT: Reports Ears normal, Nose normal and Oropharynx normal Neck: Supple Respiratory: Reports Airway patent, Breath sounds clear and Breath sounds equal Cardiovascular: Reports RRR, Pulses normal, No rub and No murmur GI/: Reports Soft, Nontender, No masses and Bowel sounds normal Musculoskeletal: Reports Normal strength, ROM intact, No edema and No calf tenderness Skin: Reports Warm, Dry and Normal color Neurological: Reports Sensation intact, Motor intact, Reflexes intact, Cranial nerves intact, Alert and Oriented Psychiatric: Reports Affect appropriate and Mood appropriate Interpretation Radiology Interpretation Radiology Interpretation By: Radiologist Radiology Results: Negative Exam Interpreted: CXR and CT Scan EKG Interpretation Time of EKG #1: 19:52 Rate: Normal Rhythm: Sinus Ectopy: None [place]: NL ST Segment: Normal Interpretation: nsr Critical Care Note Critical Care Note Total Critical Care Time (mins): 0 Course Course Hematology/Chemistry: 11/24/20 19:09 11/24/20 19:09 Orders, Labs, Meds: Lab Review 11/24/20 11/24/20 11/24/20 18:55 19:09 19:09 WBC 2.58 L RBC 4.16 L Hgb 10.5 L Hct 32.8 L MCV 78.8 L MCH 25.2 L MCHC 32.0 RDW Coeff of Eliu 18.5 H Plt Count 197 Immature Gran % (Auto) 0.0 Neut % (Auto) 91.0 H Lymph % (Auto) 5.[address] [place] % (Auto) 1.2 Eos % (Auto) 1.6 Baso % (Auto) 0.4 Neut # (Auto) 2.4 Lymph # (Auto) 0.[address] [place] # (Auto) 0.0 L Eos # (Auto) 0.0 Baso # (Auto) 0.0 Immature Gran # (Auto) 0.0 Sodium 135.5 Potassium 3.02 L Chloride 104.7 Carbon Dioxide 22.7 Anion Gap 11.12 BUN 16.8 Creatinine 1.49 H Estimated GFR (MDRD) 35.00 BUN/Creatinine Ratio 11.27 Glucose 160.1 H Lactic Acid Calcium 9.08 Total Bilirubin 0.80 AST > 750.0 H D ALT 302.0 H D Alkaline Phosphatase 202.8 H D Total Creatine Kinase 164.2 H CK-MB (CK-2) 0.760 CK-MB (CK-2) % 0.4600 Troponin I < 0.012 Total Protein 7.22 Albumin 4.27 Globulin 2.95 Albumin/Globulin Ratio 1.44 Amylase 53.9 11/24/20 19:09 WBC RBC Hgb Hct MCV MCH MCHC RDW Coeff of Eliu Plt Count Immature Gran % (Auto) Neut % (Auto) Lymph % (Auto) [place] % (Auto) Eos % (Auto) Baso % (Auto) Neut # (Auto) Lymph # (Auto) [place] # (Auto) Eos # (Auto) Baso # (Auto) Immature Gran # (Auto) Sodium Potassium Chloride Carbon Dioxide Anion Gap BUN Creatinine Estimated GFR (MDRD) BUN/Creatinine Ratio Glucose Lactic Acid 1.82 Calcium Total Bilirubin AST ALT Alkaline Phosphatase Total Creatine Kinase CK-MB (CK-2) CK-MB (CK-2) % Troponin I Total Protein Albumin Globulin Albumin/Globulin Ratio Amylase Orders Category Date Time Status EKG-(ED ONLY) Stat CARDIO 11/24/20 18:52 Ordered ED OCCUPATIONAL MEDICINE SPECIALIST APPLIED .ONCE EMERGENCY 11/24/20 18:52 Active ED IV/MEDIPORT/POWERPORT .ONCE EMERGENCY 11/24/20 18:52 Active AMYLASE Stat LAB 11/24/20 19:09 Completed BLOOD CULTURE (ED ONLY) Stat LAB 11/24/20 19:09 Received CBC W/ AUTO DIFF Stat LAB 11/24/20 19:09 Completed COMPREHENSIVE METABOLIC PANEL Stat LAB 11/24/20 19:09 Completed CREATINE KINASE Stat LAB 11/24/20 18:55 Results HEPATITIS PANEL, ACUTE Stat LAB 11/24/20 19:55 Ordered LACTIC ACID Stat LAB 11/24/20 19:09 Completed TROPONIN I Stat LAB 11/24/20 18:55 Results URINALYSIS C & S IF INDICATED Stat LAB 11/24/20 18:53 Uncollected 0.9 % Sodium Chloride [Saline Flush] MEDS 11/24/20 18:52 Active 1 syr IVF PRN PRN Ceftriaxone/D5w 1 gm Premix [Rocephin 1 gm/50 ml D5w] MEDS 11/24/20 18:52 Discontinued 1 gm in 50 ml IV ONCE Ondansetron HCl/Pf [Zofran 4 mg/2 ml] MEDS 11/24/20 18:52 Discontinued 4 mg IVP ONCE STA Sodium Chloride 0.9% [Sodium Chloride] 1,000 ml MEDS 11/24/20 18:52 Active IV 100 mls/hr CT ABDOMEN/PELVIS WO CONTRAST Stat RADS 11/24/20 18:55 Completed Medications Generic Name Dose Route Start Last Admin Trade Name Freq PRN Reason Stop Dose Admin Sodium Chloride 1,000 mls @ 100 mls/hr 11/24/20 18:52 11/24/20 19:12 Sodium Chloride IV 11/25/20 04:51 100 mls/hr .Q10H STA Administration Sodium Chloride 1 syr 11/24/20 18:52 0.9% Sodium Chloride 10 Ml Disp.Syrin IVF PRN PRN To flush IV Discontinued Medications Generic Name Dose Route Start Last Admin Trade Name Freq PRN Reason Stop Dose Admin CEFTRIAXONE/D5W 1 GM PREMIX 1 gm in 50 mls @ 75 mls/hr 11/24/20 18:52 11/24/20 19:12 Rocephin 1 Gm/50 Ml D5w IV 11/24/20 19:31 75 mls/hr ONCE STA Administration Ondansetron HCl 4 mg 11/24/20 18:52 11/24/20 19:12 Ondansetron Hcl/Pf 4 Mg/2 Ml Sdv IVP 11/24/20 18:53 4 mg ONCE STA Administration Vital Signs: Temp Pulse Resp BP Pulse Ox 11/24/20 18:03 98.0 F 81 20 103/67 94 L Discharge Plan Discharge Patient Disposition: ADMITTED INPATIENT Discharge Problem: Pyelonephritis Prescriptions: No Action lorazepam 1 MG tablet 1 mg PO BID RF: 0 Xarelto 20 MG tablet 20 mg PO DAILY RF: 0 promethazine 12.5 mg Tablet 12.5 mg PO Q6H PRN (Reason: Nausea) RF: 0 tramadol 50 mg Tablet 50 mg PO BID RF: 0 famotidine 20 mg Tablet 20 mg PO DAILY RF: 0 nitroglycerin 0.4 mg Tablet, Sublingual 0.4 mg SUBLINGUAL Q5-15M PRN (Reason: pain) RF: 0 aspirin 81 mg Tablet,Chewable 81 mg PO DAILY RF: 0 diltiazem HCl 30 mg Tablet 30 mg PO BID RF: 0 citalopram [Celexa] 20 MG tablet 40 mg PO QPM RF: 0 levothyroxine 50 mcg Capsule 50 mcg PO DAILY RF: 0 lorazepam 1 mg tablet 1 mg PO PRN PRN (Reason: Anxiety) RF: 0 ED Provider: EMANI THOMPSON Condition: Good Physician Progress Note: []
[2020-11-24 19:53] LABS: TROPONIN I < 0.012 ng/ml (0.0000-0.120)
[2020-11-24] MEDS ORDERED: MORPHINE 2 MG/ML SYRINGE IVP PRN (20:01)
[2020-11-24] MEDS ORDERED: ATIVAN PO PRN (20:04)
[2020-11-24] MEDS ORDERED: NITROSTAT SL PRN (20:04)
[2020-11-24 21:46] VITALS: BMI 30.9
[2020-11-24] MEDS: ATIVAN PO SCH (22:21)
[2020-11-24 22:22] LABS: BILIRUBIN,URINE Negative (NEGATIVE); CLARITY,URINE Cloudy (CLEAR); COLOR,URINE Yellow (YELLOW); GLUCOSE, URINE (UA) Negative (NEGATIVE); KETONES,URINE Negative (NEGATIVE); LEUKOCYTE ESTERASE ,URINE 1+ (NEGATIVE); NITRITE,URINE Negative (NEGATIVE); PH,URINE 5.5 (5-9); PROTEIN,URINE 2+ (NEGATIVE); URINE, BLOOD 1+ (NEGATIVE); UROBILINOGEN,URINE 0.2 (0.2)
[2020-11-24] MEDS: CARDIZEM PO SCH (22:22)
[2020-11-24] MEDS: ULTRAM PO SCH (22:22)
[2020-11-24 22:25] LABS: BACTERIA,URINE 4+ (NOT PRESENT); GRANULAR CASTS,URINE 0-2 (NOT PRESENT); MUCUS,URINE 1+ (NOT PRESENT); SQUAMOUS EPITHELIAL CELL,UR 20-30 (0-5)
[2020-11-25] MEDS: ZOFRAN 4 MG/2 ML IVP SCH ×2 (02:25→06:10)
[2020-11-25 05:44] LABS: BASOPHILS % (AUTO) 0.2 % (0.0-3.0); EOSINOPHILS # (AUTO) 0.1 K/ul (0.0-0.7); EOSINOPHILS % (AUTO) 1.2 % (0.0-7.0); HEMATOCRIT 27.2 % (37.0-47.0); HEMOGLOBIN 8.7 g/dl (12.0-16.0); IMMATURE GRANULOCYTE % (AUTO) 0.2 % (0.0-5.0); LYMPHOCYTES # (AUTO) 0.3 K/uL (0.60-3.4); LYMPHOCYTES % (AUTO) 7.9 (10.0-50.0); MEAN CORPUSCULAR HEMOGLOBIN 25.2 pg (27.0-31.0); MEAN CORPUSCULAR VOLUME 78.8 fl (81.0-99.0); MONOCYTES # (AUTO) 0.2 K/uL (0.4-2.0); MONOCYTES % (AUTO) 3.6 (0-10); NEUTROPHILS # (AUTO) 3.6 K/ul (2.0-6.9); NEUTROPHILS % (AUTO) 86.9 % (42.2-75.2); PLATELET COUNT 182 10^3/uL (140-440); RDW COEFFICIENT OF VARIATION 18.4 % (11.6-14.8); RED BLOOD COUNT 3.45 10^6/ul (4.20-5.40); WHITE BLOOD COUNT 4.16 K/ul (4.6-10.2)
[2020-11-25] MEDS: SYNTHROID PO SCH (05:53)
[2020-11-25 05:57] LABS: ALANINE AMINOTRANSFERASE 365.1 U/L (0-35); ALBUMIN 3.17 g/dL (3.5-5.0); ALKALINE PHOSPHATASE 150.2 U/L (53-141); AMYLASE 35.9 U/L (30-110); ASPARTATE AMINO TRANSFERASE 687.4 U/L (14-36); BILIRUBIN,TOTAL 0.65 mg/dL (0.2-1.3); BLOOD UREA NITROGEN 17.8 mg/dL (7-17); CALCIUM 7.42 mg/dL (8.4-10.2); CARBON DIOXIDE 19.8 mmol/L (22-30.0); CHLORIDE 109.5 mmol/L (98-107); CREATININE 1.55 mg/dL (0.60-1.30); GLUCOSE 99.9 mg/dL (74-106); POTASSIUM 3.28 mmol/L (3.5-5.1); SODIUM 136.5 mmol/L (134.5-145); TOTAL PROTEIN 5.86 g/dL (6.3-8.2)
[2020-11-25] MEDS ORDERED: ZOFRAN 4 MG/2 ML IVP PRN (08:39)
[2020-11-25] MEDS: ULTRAM PO SCH ×2 (08:47→20:51)
[2020-11-25] MEDS: PEPCID PO SCH (08:47)
[2020-11-25] MEDS: ATIVAN PO SCH ×2 (08:47→20:50)
[2020-11-25] MEDS: CARDIZEM PO SCH ×2 (08:47→20:50)
[2020-11-25] MEDS: ASPIRIN CHEWABLE PO SCH (08:47)
[2020-11-25] MEDS: XARELTO PO SCH (08:48)
[2020-11-25] MEDS: SODIUM CHLORIDE 1,000 ML IV SCH ×2 (08:48→21:38)
[2020-11-25] MEDS ORDERED: LEVOTHYROXINE 50 MCG PO SCH (09:00)
[2020-11-25] MEDS: AZACTAM 1 GM in SODIUM CHLORIDE 50 ML IV SCH ×2 (10:05→20:49)
[2020-11-25] MEDS: CELEXA PO SCH (16:26)
[2020-11-25] MEDS: ROCEPHIN 1 GM/50 ML D5W 1 GM/50 ML BAG IV SCH (21:36)
[2020-11-26 05:05] LABS: BASOPHILS % (AUTO) 0.5 % (0.0-3.0); EOSINOPHILS # (AUTO) 0.2 K/ul (0.0-0.7); HEMATOCRIT 29.1 % (37.0-47.0); HEMOGLOBIN 9.2 g/dl (12.0-16.0); IMMATURE GRANULOCYTE % (AUTO) 0.3 % (0.0-5.0); LYMPHOCYTES % (AUTO) 27.7 (10.0-50.0); MEAN CORPUSCULAR HEMOGLOBIN 25.1 pg (27.0-31.0); MEAN CORPUSCULAR HGB CONC 31.6 (31.8-35.4); MEAN CORPUSCULAR VOLUME 79.5 fl (81.0-99.0); MONOCYTES # (AUTO) 0.2 K/uL (0.4-2.0); MONOCYTES % (AUTO) 5.2 (0-10); NEUTROPHILS # (AUTO) 2.2 K/ul (2.0-6.9); NEUTROPHILS % (AUTO) 60.3 % (42.2-75.2); PLATELET COUNT 181 10^3/uL (140-440); RDW COEFFICIENT OF VARIATION 18.6 % (11.6-14.8); RED BLOOD COUNT 3.66 10^6/ul (4.20-5.40); WHITE BLOOD COUNT 3.68 K/ul (4.6-10.2)
[2020-11-26 05:19] LABS: ALANINE AMINOTRANSFERASE 221.1 U/L (0-35); ALBUMIN 3.18 g/dL (3.5-5.0); ASPARTATE AMINO TRANSFERASE 163.2 U/L (14-36); BILIRUBIN,TOTAL 0.3 mg/dL (0.2-1.3); CALCIUM 8.36 mg/dL (8.4-10.2); CARBON DIOXIDE 21.6 mmol/L (22-30.0); CHLORIDE 113.5 mmol/L (98-107); CREATININE 1.21 mg/dL (0.60-1.30); GLUCOSE 119.7 mg/dL (74-106); POTASSIUM 3.77 mmol/L (3.5-5.1); TOTAL PROTEIN 5.93 g/dL (6.3-8.2)
[2020-11-26] MEDS: PEPCID PO SCH (05:32)
[2020-11-26] MEDS: SYNTHROID PO SCH (05:32)
[2020-11-26 06:26] LABS: HBsAgSCREEN Negative (Negative); HEP A AB, IgM Negative (Negative); HEP B CORE Ab, IgM Negative (Negative); HEP C VIRUS AB < 0.1 s/co ratio (0.0-0.9)
[2020-11-26 09:31] LABS: ABSOLUTE RETICS # 0.0515; RETICULOCYTE % 1.37 %; RETICULOCYTE HEMOGLOBIN 31.3
[2020-11-26] MEDS: CARDIZEM PO SCH ×2 (09:55→20:45)
[2020-11-26] MEDS: ULTRAM PO SCH ×2 (09:55→20:45)
[2020-11-26] MEDS: ATIVAN PO SCH ×2 (09:56→20:45)
[2020-11-26] MEDS: AZACTAM 1 GM in SODIUM CHLORIDE 50 ML IV SCH ×2 (09:56→21:59)
[2020-11-26] MEDS: XARELTO PO SCH (09:56)
[2020-11-26] MEDS: SODIUM CHLORIDE 1,000 ML IV SCH ×2 (09:57→14:19)
[2020-11-26 10:01] LABS: IRON 21.4 ug/dL (37-170)
--- NOTE | 2020-11-26 10:02 | PCM.PROG ---
Attending Provider: ATTENDING PROVIDER: Dr. MARZENA CUEVAS This patient is seen with Paty Montalvo, Nurse Practitioner. DATE OF SERVICE: 11/26/20 SUBJECTIVE: This 65 year old /WHITE F was hospitalized 11/24/20. The patient is resting comfortably. Low grade temperature last night. Denies any nausea or abdominal pain. Liver Enzymes were elevated trending down. REVIEW OF SYSTEMS: CONSTITUTIONAL: No night sweats. No fatigue, malaise, lethargy. Fever. HEENT: Eyes: No visual changes. No eye pain. No eye discharge. ENT: No runny nose. No epistaxis. No sinus pain. No odynophagia. No congestion. RESPIRATORY: No cough, no congestion. No hemoptysis. No shortness of breath. CARDIOVASCULAR: No angina symptoms. No CHF symptoms. No atypical chest pain for CAD. No palpitations. No orthopnea.. GASTROINTESTINAL: No abdominal pain. No nausea or vomiting. No diarrhea or constipation. No hematemesis. No hematochezia. GENITOURINARY: No urgency. No frequency. Dysuria. No hematuria. No obstructive symptoms. No discharge. No pain. No significant abnormal bleeding. MUSCULOSKELETAL: No musculoskeletal pain; no joint swelling. NEUROLOGICAL: Awake, alert, oriented to time, place and person. No headache. No neck pain. No syncope. No seizures. No dizziness. PSYCHIATRIC: Not anxious. No depression. No suicidal thoughts. No homicidal thoughts. SKIN: No rash. No lesions. No wounds. ENDOCRINE: No unexplained weight loss. No weight gain. HEMATOLOGIC/LYMPHATIC: No anemia. No purpura. No petechiae. No prolonged or excessive bleeding. No palpable lymph nodes. PHYSICAL EXAMINATION: GENERAL: The patient is awake, alert and oriented, lying in bed in no distress. VITAL SIGNS: Temperature 98.7 F, Pulse 64, Respiratory Rate 18, BP 108/66, Pulse Ox 92% HEENT: Head normocephalic, atraumatic. Eyes: Extraocular muscles are intact. Pupils are equal, round and reactive to light and accommodation. Ears: No lesions. Nose appeared normal. Throat: No exudate or erythema. NECK: Supple. No JVD, no carotid bruit. No lymphadenopathy or thyromegaly. LUNGS: Diminished breath sounds. Clear to auscultation. Percussion note normal. Chest symmetrical. HEART: S1, S2, no S3. No murmurs. No cyanosis or clubbing. No ascites. Pulses: Dorsalis pedis and posterior tibial pulses +1 to +2 both sides. ABDOMEN: Soft. Non-tender. Bowel sounds active. No CVA tenderness. No mass felt. EXTREMITIES: No edema. Full range of motion of all extremities, equal. NEUROLOGIC: No focal deficit. Cranial nerves II through XII are grossly intact. No headache, no double vision or headache. SKIN: Not dry. Intact. Turgor-normal. LYMPHATIC: No palpable lymph nodes/no lymphedema. MUSCULOSKELETAL: Normal joints with no swelling. Muscle tone is normal. LAB REVIEW: 11/26/20 04:59 11/26/20 04:59 11/26/20 04:59: Sodium 141.0, Potassium 3.77, Chloride 113.5 H, Carbon Dioxide 21.6 L, Anion Gap 9.67, BUN 16.0, Creatinine 1.21, Estimated GFR (MDRD) 45.00, BUN/Creatinine Ratio 13.22, Glucose 119.7 H, Calcium 8.36 L, Total Bilirubin 0.30, AST 163.2 H D, ALT 221.1 H D, Alkaline Phosphatase 146.0 H, Total Protein 5.93 L, Albumin 3.18 L, Globulin 2.75, Albumin/Globulin Ratio 1.15 11/26/20 04:59: WBC 3.68 L, RBC 3.66 L, Hgb 9.2 L, Hct 29.1 L, MCV 79.5 L, MCH 25.1 L, MCHC 31.6 L, RDW Coeff of Eliu 18.6 H, Plt Count 181, Immature Gran % (Auto) 0.3, Neut % (Auto) 60.3, Lymph % (Auto) 27.7, [place] % (Auto) 5.2, Eos % (Auto) 6.0, Baso % (Auto) 0.5, Neut # (Auto) 2.2, Lymph # (Auto) 1.0, [place] # (Auto) 0.2 L, Eos # (Auto) 0.2, Baso # (Auto) 0.0, Immature Gran # (Auto) 0.0 11/24/20 19:05: Hepatitis A IgM Ab Negative, Hep Bs Antigen Negative, Hep B Core IgM Ab Negative, Hep C Ab Signal/Cutoff < 0.1 ASSESSMENT: Please see below. 1. Acute pyelonephritis 2. UTI, positive e-coli 3. Chronic anemia 4. 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 Elevated liver enzymes. PLAN: 1. Continue IV Rocephin 2. Decrease fluids to 50 3. Anemia profile 4. Ultrasound of the liver. Plan and coordination of the patient's care discussed in the presence of Minute Clerk For [employer] and nurse. SCRIBED BY: Juwan UREÑA scribed while in presence of service performed by Dr. Cuevas/Paty Montalvo APRN on 11/26/20 ([id number])
[2020-11-26] MEDS: ASPIRIN CHEWABLE PO SCH (10:06)
[2020-11-26 10:39] LABS: FERRITIN 21.7 ng/mL (11.1-264.0)
--- NOTE | 2020-11-26 10:58 | PN ---
DATE OF SERVICE: 11/24/20 - ADMIT NOTE SUBJECTIVE: 65-year-old white female came to the emergency room with having history of severe hypertension at home, close to 200 with back pain and generalized aches. The patient in the emergency room was seen and examined by ER attending. He had seen this patient earlier on 11/22/20 in the ER and had evidence of urinary tract infection and was treated as an outpatient. The patient had urine culture sensitivity back which was reviewed by ER attending and was noted to have E. coli resistant to Cipro so the patient was hospitalized with acute pyelonephritis. The patient had symptoms of acute pyelonephritis. ALLERGIES: VENOM AND HONEY BEE PERSONAL/FAMILY/SOCIAL HISTORY: The patient is a smoker. No alcohol abuse. She lives by herself. She does all activity of daily living. MEDICATIONS: Lorazepam Xarelto Celexa Levothyroxine Aspirin Diltiazem Famotadine Nitroglycerin Promethazine Tramadol REVIEW OF SYSTEMS: CONSTITUTIONAL: Weakness and fatigue. No night sweats. No malaise, lethargy. No fever or chills. HEENT: Eyes: No visual changes. No eye pain. No eye discharge. ENT: No runny nose. No epistaxis. No sinus pain. No sore throat. No odynophagia. No congestion. RESPIRATORY: No cough, no congestion. No hemoptysis. Mild shortness of breath. CARDIOVASCULAR: No chest pain, no PND, no orthopnea. No angina symptoms. No CHF symptoms. No atypical chest pain for CAD. No palpitations. GASTROINTESTINAL: Poor appetite. Mild nausea, mild abdominal discomfort. No vomiting. No diarrhea. No hematemesis. No hematochezia. GENITOURINARY: No urgency. No frequency. No dysuria. No hematuria. No obstructive symptoms. No discharge. No pain. No significant abnormal bleeding. MUSCULOSKELETAL: Generalized aches. NEUROLOGICAL: No headache. No neck pain. No syncope. No seizures. No dizziness. PSYCHIATRIC: Not anxious. No depression. No suicidal thoughts. No homicidal thoughts. SKIN: No rash. No lesions. No wounds. ENDOCRINE: No unexplained weight loss. No weight gain. HEMATOLOGIC/LYMPHATIC: No anemia. No purpura. No petechiae. No prolonged or excessive bleeding. No palpable lymph nodes. PHYSICAL EXAMINATION: VITAL SIGNS: Temperature 98.4, pulse 70, respiratory rate 15, BP 115/70. HEENT: Mucous membranes dry. Somewhat pale. Head normocephalic, atraumatic. Eyes: Extraocular muscles are intact. Pupils are equal, round and reactive to light and accommodation. Ears: No lesions. Nose appeared normal. Throat: No exudate or erythema. NECK: Supple. No JVD, no carotid bruit. No lymphadenopathy or thyromegaly. LUNGS: Clear to auscultation. Percussion note normal. Chest symmetrical. HEART: S1, S2, no S3. No murmurs. No cyanosis or clubbing. No ascites. Pulses: Dorsalis pedis and posterior tibial pulses +1 to +2 bilaterally. ABDOMEN: Soft. Nontender. Bowel sounds active. No CVA tenderness. No mass felt. EXTREMITIES: No edema. Full range of motion of all extremities, equal. NEUROLOGIC: No focal deficit. Cranial nerves II through XII are grossly intact. No headache, no double vision or headache. SKIN: Dry. Intact. Turgor - normal. LYMPHATIC: No palpable lymph nodes/no lymphedema. MUSCULOSKELETAL: Normal joints with no swelling. Muscle tone is normal. ASSESSMENT: 1. Acute pyelonephritis with E. coli which is resistant to Cipro. PLAN: 1. We are going to put her on Rocephin. 2. IV fluids. 3. Encourage the patient to eat. 4. Continue the rest of the medications. TIME SPENT: More than 30 minutes. Plan and coordination of the patient's care discussed in the presence of nurse. RIANA
--- NOTE | 2020-11-26 11:14 | PN ---
DATE OF SERVICE: 11/25/20 SUBJECTIVE: 65-year-old white female hospitalized with acute pyelonephritis. The patient is feeling better. She doesn't have much pain like what she had yesterday. The appetite is somewhat better. Nausea has resolved. REVIEW OF SYSTEMS: CONSTITUTIONAL: No night sweats. No fatigue, malaise, lethargy. No fever or chills. HEENT: Eyes: No visual changes. No eye pain. No eye discharge. ENT: No runny nose. No epistaxis. No sinus pain. No sore throat. No odynophagia. No congestion. RESPIRATORY: No cough, no congestion. No hemoptysis. No shortness of breath. CARDIOVASCULAR: No angina symptoms. No CHF symptoms. No atypical chest pain for CAD. No palpitations. No PND. No orthopnea. GASTROINTESTINAL: No abdominal pain. No nausea or vomiting. No diarrhea or constipation. No hematemesis. No hematochezia. GENITOURINARY: No urgency. No frequency. No dysuria. No hematuria. No obstructive symptoms. No discharge. No pain. No significant abnormal bleeding. MUSCULOSKELETAL: No musculoskeletal pain; no joint swelling. NEUROLOGICAL: No headache. No neck pain. No syncope. No seizures. No dizziness. PSYCHIATRIC: Not anxious. No depression. No suicidal thoughts. No homicidal thoughts. SKIN: No rash. No lesions. No wounds. ENDOCRINE: No unexplained weight loss. No weight gain. HEMATOLOGIC/LYMPHATIC: No anemia. No purpura. No petechiae. No prolonged or excessive bleeding. No palpable lymph nodes. PHYSICAL EXAMINATION: VITAL SIGNS: Temperature 99, pulse 64, respiratory rate 18, BP 80/50, pulse ox 94%. HEENT: She looks somewhat pale. Head normocephalic, atraumatic. Eyes: Extraocular muscles are intact. Pupils are equal, round and reactive to light and accommodation. Ears: No lesions. Nose appeared normal. Throat: No exudate or erythema. NECK: Supple. No JVD, no carotid bruit. No lymphadenopathy or thyromegaly. LUNGS: Decreased breath sounds but clear to auscultation. Percussion note normal. Chest symmetrical. HEART: S1, S2, no S3. No murmurs. No cyanosis or clubbing. No ascites. Pulses: Dorsalis pedis and posterior tibial pulses +1 to +2 bilaterally. ABDOMEN: Soft. Nontender. Bowel sounds active. No CVA tenderness. No mass felt. EXTREMITIES: No edema. Full range of motion of all extremities, equal. NEUROLOGIC: No focal deficit. Cranial nerves II through XII are grossly intact. No headache, no double vision or headache. SKIN: Not dry. Intact. Turgor - normal. LYMPHATIC: No palpable lymph nodes/no lymphedema. MUSCULOSKELETAL: Normal joints with no swelling. Muscle tone is normal. LABS: Hemoglobin 8.7, hematocrit 27, WBC 4,100, normal differential. Creatinine 1.5, BUN 17, potassium 3.2. ASSESSMENT: 1. Acute pyelonephritis. 2. Anemia, severe. 3. Chronic kidney disease. 4. Hypokalemia. 5. History of hypertension. 6. Hypothyroidism. PLAN: 1. Give IV fluids. 2. Monitor CBC, CMP. 3. Continue Rocephin. 4. Add Azactam. CONDITION: Stable. TIME SPENT: More than 30 minutes. Plan and coordination of the patient's care discussed in the presence of nurse. RIANA
[2020-11-26 11:37] LABS: FOLATE 6.25 ng/mL
--- NOTE | 2020-11-26 17:10 | US ---
EXAM: Abdominal ultrasound. HISTORY: Elevated liver enzyme TECHNIQUE: Real time with duplex. COMPARISON: 11/24/2020, 05/26/2020 FINDINGS: The liver measures up to 10.7 cm in length. The liver demonstrates generalized increased echogenicit y. No intrahepatic biliary dilation. The portal vein is patent and antegrade. The visualized pancreas is unremarkable. Prior cholecystectomy. The common bile duct measures 0.59 cm.. The right kidney measures 10.6 x 4.2 x 4.7 cm. Normal echotexture and color flow. No hydronephrosis or obvious calculus. IMPRESSION: 1. Hepatic steatosis. 2. Cholecystectomy.
[2020-11-26] MEDS: CELEXA PO SCH (17:14)
[2020-11-26] MEDS: ROCEPHIN 1 GM/50 ML D5W 1 GM/50 ML BAG IV SCH (20:45)
[2020-11-27 05:11] LABS: BASOPHILS % (AUTO) 0.9 % (0.0-3.0); EOSINOPHILS # (AUTO) 0.3 K/ul (0.0-0.7); EOSINOPHILS % (AUTO) 8.7 % (0.0-7.0); HEMOGLOBIN 9.2 g/dl (12.0-16.0); IMMATURE GRANULOCYTE % (AUTO) 0.3 % (0.0-5.0); LYMPHOCYTES # (AUTO) 1.5 K/uL (0.60-3.4); LYMPHOCYTES % (AUTO) 43.5 (10.0-50.0); MEAN CORPUSCULAR HEMOGLOBIN 25.2 pg (27.0-31.0); MEAN CORPUSCULAR HGB CONC 31.7 (31.8-35.4); MEAN CORPUSCULAR VOLUME 79.5 fl (81.0-99.0); MONOCYTES # (AUTO) 0.2 K/uL (0.4-2.0); MONOCYTES % (AUTO) 6.6 (0-10); NEUTROPHILS # (AUTO) 1.3 K/ul (2.0-6.9); PLATELET COUNT 195 10^3/uL (140-440); RDW COEFFICIENT OF VARIATION 18.7 % (11.6-14.8); RED BLOOD COUNT 3.65 10^6/ul (4.20-5.40); WHITE BLOOD COUNT 3.33 K/ul (4.6-10.2)
[2020-11-27 05:22] LABS: ALANINE AMINOTRANSFERASE 146.1 U/L (0-35); ALBUMIN 3.42 g/dL (3.5-5.0); ALKALINE PHOSPHATASE 131.3 U/L (53-141); ASPARTATE AMINO TRANSFERASE 63.8 U/L (14-36); BILIRUBIN,TOTAL 0.35 mg/dL (0.2-1.3); BLOOD UREA NITROGEN 11.5 mg/dL (7-17); CALCIUM 8.84 mg/dL (8.4-10.2); CARBON DIOXIDE 25.4 mmol/L (22-30.0); CHLORIDE 112.2 mmol/L (98-107); CREATININE 0.91 mg/dL (0.60-1.30); GLUCOSE 114.1 mg/dL (74-106); POTASSIUM 3.96 mmol/L (3.5-5.1); SODIUM 141.4 mmol/L (134.5-145); TOTAL PROTEIN 6.31 g/dL (6.3-8.2)
[2020-11-27] MEDS: SODIUM CHLORIDE 1,000 ML IV SCH (05:29)
[2020-11-27] MEDS: PEPCID PO SCH (05:36)
[2020-11-27] MEDS: SYNTHROID PO SCH (05:36)
[2020-11-27] MEDS: CARDIZEM PO SCH ×2 (08:57→20:16)
[2020-11-27] MEDS: ULTRAM PO SCH ×2 (08:57→20:16)
[2020-11-27] MEDS: ATIVAN PO SCH ×2 (08:57→20:16)
[2020-11-27] MEDS: XARELTO PO SCH (08:57)
[2020-11-27] MEDS: AZACTAM 1 GM in SODIUM CHLORIDE 50 ML IV SCH (08:57)
--- NOTE | 2020-11-27 09:20 | PCM.PROG ---
Attending Provider: ATTENDING PROVIDER: Dr. MARZENA CUEVAS DATE OF SERVICE: 11/27/20 SUBJECTIVE: This 65 year old /WHITE F was hospitalized 11/24/20 with acute pyelonephritis. The patient's condition has improved. She is afebrile and eating better. The patient's liver levels are coming down. REVIEW OF SYSTEMS: CONSTITUTIONAL: No night sweats. No fatigue, malaise, lethargy. No fever or chills. HEENT: Eyes: No visual changes. No eye pain. No eye discharge. ENT: No runny nose. No epistaxis. No sinus pain. No odynophagia. No congestion. RESPIRATORY: No cough, no congestion. No hemoptysis. No shortness of breath. CARDIOVASCULAR: No angina symptoms. No CHF symptoms. No atypical chest pain for CAD. No palpitations. No orthopnea.. GASTROINTESTINAL: No abdominal pain. No nausea or vomiting. No diarrhea or constipation. No hematemesis. No hematochezia. GENITOURINARY: No urgency. No frequency. No dysuria. No hematuria. No obstructive symptoms. No discharge. No pain. No significant abnormal bleeding. MUSCULOSKELETAL: No musculoskeletal pain; no joint swelling. NEUROLOGICAL: Awake, alert, oriented to time, place and person. No headache. No neck pain. No syncope. No seizures. No dizziness. PSYCHIATRIC: Not anxious. No depression. No suicidal thoughts. No homicidal thoughts. SKIN: No rash. No lesions. No wounds. ENDOCRINE: No unexplained weight loss. No weight gain. HEMATOLOGIC/LYMPHATIC: No anemia. No purpura. No petechiae. No prolonged or excessive bleeding. No palpable lymph nodes. PHYSICAL EXAMINATION: GENERAL: The patient is awake, alert and oriented, lying/sitting in bed in no distress. VITAL SIGNS: Temperature 98.1 F, Pulse 52, Respiratory Rate 18, BP 121/63, Pulse Ox 92% HEENT: Head normocephalic, atraumatic. Eyes: Extraocular muscles are intact. Pupils are equal, round and reactive to light and accommodation. Ears: No lesions. Nose appeared normal. Throat: No exudate or erythema. NECK: Supple. No JVD, no carotid bruit. No lymphadenopathy or thyromegaly. LUNGS: Clear to auscultation. Percussion note normal. Chest symmetrical. HEART: S1, S2, no S3. No murmurs. No cyanosis or clubbing. No ascites. Pulses: Dorsalis pedis and posterior tibial pulses +1 to +2 both sides. ABDOMEN: Soft. Non-tender. Bowel sounds active. No CVA tenderness. No mass felt. EXTREMITIES: No edema. Full range of motion of all extremities, equal. NEUROLOGIC: No focal deficit. Cranial nerves II through XII are grossly intact. No headache, no double vision or headache. SKIN: Warm and dry. Intact. Turgor-normal. LYMPHATIC: No palpable lymph nodes/no lymphedema. MUSCULOSKELETAL: Normal joints with no swelling. Muscle tone is normal. LAB REVIEW: 11/27/20 05:05 11/27/20 05:05 11/27/20 05:05: Sodium 141.4, Potassium 3.96, Chloride 112.2 H, Carbon Dioxide 25.4, Anion Gap 7.76, BUN 11.5, Creatinine 0.91, Estimated GFR (MDRD) 62.00, BUN/Creatinine Ratio 12.63, Glucose 114.1 H, Calcium 8.84, Total Bilirubin 0.35, AST 63.8 H D, ALT 146.1 H D, Alkaline Phosphatase 131.3, Total Protein 6.31, Albumin 3.42 L, Globulin 2.89, Albumin/Globulin Ratio 1.18 11/27/20 05:05: WBC 3.33 L, RBC 3.65 L, Hgb 9.2 L, Hct 29.0 L, MCV 79.5 L, MCH 25.2 L, MCHC 31.7 L, RDW Coeff of Eliu 18.7 H, Plt Count 195, Immature Gran % (Auto) 0.3, Neut % (Auto) 40.0 L, Lymph % (Auto) 43.5, Wolfe % (Auto) 6.6, Eos % (Auto) 8.7 H, Baso % (Auto) 0.9, Neut # (Auto) 1.3 L, Lymph # (Auto) 1.5, Wolfe # (Auto) 0.2 L, Eos # (Auto) 0.3, Baso # (Auto) 0.0, Immature Gran # (Auto) 0.0 11/26/20 09:23: Transferrin 218 11/26/20 09:23: Iron 21.4 L, TIBC 327, % Saturation 7, Vitamin B12 286 11/26/20 09:23: Ferritin 21.70, Folate 6.25 11/26/20 08:49: Reticulocyte % (Auto) 1.37, Absolute Retic 0.0515, Retic Hgb Equ ivalent 31.3 ASSESSMENT: Please see below. 1. Acute pyelonephritis, resolved 2. Chronic anemia 3. Hepatic steatosis, anormal liver profile PLAN: 1. Continue Rocephin 2. Discontinue Azactam 3. Continue the rest of the medications including Xarelto 4. Discontinue fluids 5. Discontinue Telemetry Plan and coordination of the patient's care discussed in the presence of Calciner Feeder and nurse. SCRIBED BY: TIANNA SEWELL Magazine Worker scribed while in presence of service performed by Dr. MARZENA CUEVAS on 11/27/20 ([id number])
[2020-11-27] MEDS: CELEXA PO SCH (17:40)
[2020-11-27] MEDS: ROCEPHIN 1 GM/50 ML D5W 1 GM/50 ML BAG IV SCH (20:20)
[2020-11-28 05:29] LABS: BASOPHILS % (AUTO) 0.5 % (0.0-3.0); EOSINOPHILS # (AUTO) 0.3 K/ul (0.0-0.7); EOSINOPHILS % (AUTO) 8.5 % (0.0-7.0); HEMATOCRIT 31.6 % (37.0-47.0); IMMATURE GRANULOCYTE % (AUTO) 0.3 % (0.0-5.0); LYMPHOCYTES # (AUTO) 1.8 K/uL (0.60-3.4); LYMPHOCYTES % (AUTO) 46.8 (10.0-50.0); MEAN CORPUSCULAR HEMOGLOBIN 24.9 pg (27.0-31.0); MEAN CORPUSCULAR HGB CONC 31.6 (31.8-35.4); MEAN CORPUSCULAR VOLUME 78.6 fl (81.0-99.0); MONOCYTES # (AUTO) 0.2 K/uL (0.4-2.0); MONOCYTES % (AUTO) 5.7 (0-10); NEUTROPHILS # (AUTO) 1.5 K/ul (2.0-6.9); NEUTROPHILS % (AUTO) 38.2 % (42.2-75.2); PLATELET COUNT 220 10^3/uL (140-440); RDW COEFFICIENT OF VARIATION 18.6 % (11.6-14.8); RED BLOOD COUNT 4.02 10^6/ul (4.20-5.40); WHITE BLOOD COUNT 3.87 K/ul (4.6-10.2)
[2020-11-28] MEDS: SYNTHROID PO SCH (05:31)
[2020-11-28] MEDS: PEPCID PO SCH (05:31)
[2020-11-28 05:40] LABS: ALANINE AMINOTRANSFERASE 106.6 U/L (0-35); ALBUMIN 3.74 g/dL (3.5-5.0); ALKALINE PHOSPHATASE 128.6 U/L (53-141); ASPARTATE AMINO TRANSFERASE 31.5 U/L (14-36); BILIRUBIN,TOTAL 0.37 mg/dL (0.2-1.3); CALCIUM 9.19 mg/dL (8.4-10.2); CARBON DIOXIDE 25.1 mmol/L (22-30.0); CHLORIDE 109.1 mmol/L (98-107); CREATININE 0.87 mg/dL (0.60-1.30); GLUCOSE 124.7 mg/dL (74-106); POTASSIUM 4.02 mmol/L (3.5-5.1); SODIUM 139.7 mmol/L (134.5-145); TOTAL PROTEIN 6.77 g/dL (6.3-8.2)
[2020-11-28] MEDS: ULTRAM PO SCH ×2 (08:53→20:31)
[2020-11-28] MEDS: CARDIZEM PO SCH ×2 (08:53→20:31)
[2020-11-28] MEDS: XARELTO PO SCH (08:53)
[2020-11-28] MEDS: ATIVAN PO SCH ×2 (08:53→20:31)
[2020-11-28] MEDS: CELEXA PO SCH (17:05)
[2020-11-28] MEDS: ROCEPHIN 1 GM/50 ML D5W 1 GM/50 ML BAG IV SCH (20:32)
[2020-11-29 05:20] LABS: BASOPHILS % (AUTO) 0.8 % (0.0-3.0); EOSINOPHILS # (AUTO) 0.3 K/ul (0.0-0.7); EOSINOPHILS % (AUTO) 6.3 % (0.0-7.0); HEMATOCRIT 32.3 % (37.0-47.0); HEMOGLOBIN 10.3 g/dl (12.0-16.0); IMMATURE GRANULOCYTE % (AUTO) 0.3 % (0.0-5.0); LYMPHOCYTES # (AUTO) 1.9 K/uL (0.60-3.4); LYMPHOCYTES % (AUTO) 49.2 (10.0-50.0); MEAN CORPUSCULAR HEMOGLOBIN 25.2 pg (27.0-31.0); MEAN CORPUSCULAR HGB CONC 31.9 (31.8-35.4); MEAN CORPUSCULAR VOLUME 79.2 fl (81.0-99.0); MONOCYTES # (AUTO) 0.3 K/uL (0.4-2.0); MONOCYTES % (AUTO) 6.3 (0-10); NEUTROPHILS # (AUTO) 1.5 K/ul (2.0-6.9); NEUTROPHILS % (AUTO) 37.1 % (42.2-75.2); PLATELET COUNT 234 10^3/uL (140-440); RDW COEFFICIENT OF VARIATION 18.8 % (11.6-14.8); RED BLOOD COUNT 4.08 10^6/ul (4.20-5.40); WHITE BLOOD COUNT 3.94 K/ul (4.6-10.2)
[2020-11-29 05:38] LABS: ALBUMIN 3.96 g/dL (3.5-5.0); ASPARTATE AMINO TRANSFERASE 24.9 U/L (14-36); BILIRUBIN,TOTAL 0.44 mg/dL (0.2-1.3); BLOOD UREA NITROGEN 14.7 mg/dL (7-17); CALCIUM 9.45 mg/dL (8.4-10.2); CARBON DIOXIDE 23.7 mmol/L (22-30.0); CREATININE 0.88 mg/dL (0.60-1.30); GLUCOSE 124.4 mg/dL (74-106); POTASSIUM 3.83 mmol/L (3.5-5.1); SODIUM 139.6 mmol/L (134.5-145); TOTAL PROTEIN 7.14 g/dL (6.3-8.2)
[2020-11-29] MEDS: PEPCID PO SCH (05:45)
[2020-11-29] MEDS: SYNTHROID PO SCH (05:45)
[2020-11-29 05:48] VITALS: BP 113/62; TEMP 97.3
[2020-11-29] MEDS: ATIVAN PO SCH (08:16)
[2020-11-29] MEDS: CARDIZEM PO SCH (08:16)
[2020-11-29] MEDS: ULTRAM PO SCH (08:16)
[2020-11-29] MEDS: XARELTO PO SCH (08:17)
[2020-11-29] MEDS ORDERED: ROCEPHIN 1 GM VIAL IM STA (11:35)
[2020-11-29] MEDS ORDERED: LIDOCAINE HCL 1% SDV IM STA (11:35)
--- NOTE | 2020-11-30 09:58 | HP ---
DATE OF SERVICE: 11/24/20 SUBJECTIVE: 65-year-old white female came to the emergency room with having history of severe hypertension at home, close to 200 with back pain and generalized aches. The patient in the emergency room was seen and examined by ER attending. He had seen this patient earlier on 11/22/20 in the ER and had evidence of urinary tract infection and was treated as an outpatient. The patient had urine culture sensitivity back which was reviewed by ER attending and was noted to have E. coli resistant to Cipro so the patient was hospitalized with acute pyelonephritis. The patient had symptoms of acute pyelonephritis. PERSONAL/FAMILY/SOCIAL HISTORY: The patient is a non smoker. No alcohol abuse. . She lives by herself. She does all activity of daily living. MEDICATIONS: Lorazepam Xarelto Celexa Levothyroxine Aspirin Diltiazem Famotadine Nitroglycerin Promethazine Tramadol ALLERGIES: VENOM AND HONEY BEE REVIEW OF SYSTEMS: CONSTITUTIONAL: Weakness and fatigue. No night sweats. No malaise, lethargy. No fever or chills. HEENT: Eyes: No visual changes. No eye pain. No eye discharge. ENT: No runny nose. No epistaxis. No sinus pain. No sore throat. No odynophagia. No congestion. RESPIRATORY: No cough, no congestion. No hemoptysis. Mild shortness of breath. CARDIOVASCULAR: No chest pain, no PND, no orthopnea. No angina symptoms. No CHF symptoms. No atypical chest pain for CAD. No palpitations. GASTROINTESTINAL: Poor appetite. Mild nausea, mild abdominal discomfort. No vomiting. No diarrhea. No hematemesis. No hematochezia. GENITOURINARY: No urgency. No frequency. No dysuria. No hematuria. No obstructive symptoms. No discharge. No pain. No significant abnormal bleeding. MUSCULOSKELETAL: Generalized aches. NEUROLOGICAL: No headache. No neck pain. No syncope. No seizures. No dizziness. PSYCHIATRIC: Not anxious. No depression. No suicidal thoughts. No homicidal thoughts. SKIN: No rash. No lesions. No wounds. ENDOCRINE: No unexplained weight loss. No weight gain. HEMATOLOGIC/LYMPHATIC: No anemia. No purpura. No petechiae. No prolonged or excessive bleeding. No palpable lymph nodes. PHYSICAL EXAMINATION: VITAL SIGNS: Temperature 98.4, pulse 70, respiratory rate 15, BP 115/70. HEENT: Mucous membranes dry. Somewhat pale. Head normocephalic, atraumatic. Eyes: Extraocular muscles are intact. Pupils are equal, round and reactive to light and accommodation. Ears: No lesions. Nose appeared normal. Throat: No exudate or erythema. NECK: Supple. No JVD, no carotid bruit. No lymphadenopathy or thyromegaly. LUNGS: Clear to auscultation. Percussion note normal. Chest symmetrical. HEART: S1, S2, no S3. No murmurs. No cyanosis or clubbing. No ascites. Pulses: Dorsalis pedis and posterior tibial pulses +1 to +2 bilaterally. ABDOMEN: Soft. Nontender. Bowel sounds active. No CVA tenderness. No mass felt. EXTREMITIES: No edema. Full range of motion of all extremities, equal. NEUROLOGIC: No focal deficit. Cranial nerves II through XII are grossly intact. No headache, no double vision or headache. SKIN: Dry. Intact. Turgor - normal. LYMPHATIC: No palpable lymph nodes/no lymphedema. MUSCULOSKELETAL: Normal joints with no swelling. Muscle tone is normal. LABS: Hgb 10, hct 32, WBC 2,500, creatinine 1.4, BUN 16, AST more than 750. ALT 302, Alkaline phosphatase 202, Lactic acid 1.8. It is to be noted that on 05/24/2020 the patient's AST was 73, ALT 438, alkaline phosphatase was 207. Hepatitis profile 05/25/2020 was negative. ASSESSMENT: 1. Acute pyelonephritis with E. coli which is resistant to Cipro. 2. Noncompliance of medications, diet and followup. 3. Heart cath 04/2020, stent 4. Non-occlusive coronary artery disease 5. Hemorrhoids 6. Hyperglycemia 7. Chronic kidney disease stage 2 8. Overactive bladder 9. Depression 10.Right knee replacement 11.Pulmonary embolism, on Xarelto since 2017 12.C-spine surgery 13.Left foot surgery 14.Dyslipidemia 15.Abnormal liver profile etiology unknown. PLAN: 1. We are going to put her on Rocephin. 2. IV fluids. 3. Encourage the patient to eat. 4. Continue the rest of the medications. TIME SPENT: More than 70 minutes. [facility]
--- NOTE | 2020-11-30 10:25 | PN ---
DATE OF SERVICE: 11/26/2020 SUBJECTIVE: The patient was seen and examined with the Nurse Practitioner. The patient's condition is improving. She is afebrile. She is feeling better. Appetite has improved. Cardiovascular status is stable. Kidney functions have improved. TIME SPENT: More than 30 minutes. Plan and coordination of the patient's care discussed in the presence of nurse. RIANA
--- NOTE | 2020-11-30 13:24 | PN ---
DATE OF SERVICE: 11/28/2020 SUBJECTIVE: 65 year old white female hospitalized with acute pyelonephritis. The patient's condition has improved remarkably. She is feeling a lot better. REVIEW OF SYSTEMS: CONSTITUTIONAL: No night sweats. No fatigue, malaise, lethargy. No fever or chills. HEENT: Eyes: No visual changes. No eye pain. No eye discharge. ENT: No runny nose. No epistaxis. No sinus pain. No sore throat. No odynophagia. No congestion. RESPIRATORY: No cough, no congestion. No hemoptysis. No shortness of breath. CARDIOVASCULAR: No angina symptoms. No CHF symptoms. No atypical chest pain for CAD. No palpitations. No PND. No orthopnea. GASTROINTESTINAL: No abdominal pain. No nausea or vomiting. No diarrhea or constipation. No hematemesis. No hematochezia. GENITOURINARY: No urgency. No frequency. No dysuria. No hematuria. No obstructive symptoms. No discharge. No pain. No significant abnormal bleeding. MUSCULOSKELETAL: No musculoskeletal pain; no joint swelling. NEUROLOGICAL: No headache. No neck pain. No syncope. No seizures. No dizziness. PSYCHIATRIC: Not anxious. No depression. No suicidal thoughts. No homicidal thoughts. SKIN: No rash. No lesions. No wounds. ENDOCRINE: No unexplained weight loss. No weight gain. HEMATOLOGIC/LYMPHATIC: No anemia. No purpura. No petechiae. No prolonged or excessive bleeding. No palpable lymph nodes. PHYSICAL EXAMINATION: VITAL SIGNS: Temperature 97.8, pulse 59, respiratory rate 16, blood pressure 104/52 and pulse ox 93%. HEENT: Head normocephalic, atraumatic. Eyes: Extraocular muscles are intact. Pupils are equal, round and reactive to light and accommodation. Ears: No lesions. Nose appeared normal. Throat: No exudate or erythema. NECK: Supple. No JVD, no carotid bruit. No lymphadenopathy or thyromegaly. LUNGS: Decreased breath sounds but clear to auscultation. Percussion note normal. Chest symmetrical. HEART: S1, S2, no S3. No murmurs. No cyanosis or clubbing. No ascites. Pulses: Dorsalis pedis and posterior tibial pulses +1 to +2 bilaterally. ABDOMEN: Soft. Nontender. Bowel sounds active. No CVA tenderness. No mass felt. EXTREMITIES: No edema. Full range of motion of all extremities, equal. NEUROLOGIC: No focal deficit. Cranial nerves II through XII are grossly intact. No headache, no double vision or headache. SKIN: Not dry. Intact. Turgor - normal. LYMPHATIC: No palpable lymph nodes/no lymphedema. MUSCULOSKELETAL: Normal joints with no swelling. Muscle tone is normal. LABS: Hgb 10, hct 31, WBC 3,800 normal differential, creatinine 0.8, BUN 12, potassium 4. ASSESSMENT: 1. Acute pyelonephritis, resolving 2. Renal azotemia has resolved with normal kidney functions 3. Hepatitis seems to be better with almost normal liver enzymes, AST being 31 and ALT 160. Elevated mildly. PLAN: 1. GGT 2. The patient is not alcoholic. The patient has history of elevated liver enzymes in the past. At that time hepatitis profile was negative. This time hepatitis profile is negative. 3. Ultrasound of the liver shows hepatic steatosis but the patient is explained about these findings and advised to lose weight, advised to exercise and is strongly advised to have referral to catering truck operator and she is agreeable. CONDITION: Stable. TIME SPENT: More than 30 minutes. Plan and coordination of the patient's care discussed in the presence of nurse. RIANA
--- NOTE | 2020-11-30 14:41 | DS ---
DATE OF SERVICE: 11/29/2020 FINAL DIAGNOSIS: 1. ACUTE PYELONEPHRITIS. 2. ACUTE RENAL AZOTEMIA. THE PATIENT'S RENAL FUNCTIONS WERE ABNORMAL ON ADMISSION WITH DEHYDRATION. AT TIME OF DISCHARGE CREATININE WAS 0.8, BUN 12. ACUTE RENAL AZOTEMIA HAD RESOLVED. 3. HEPATITIS, ETIOLOGY UNKNOWN, COULD BE COMING FROM HEPATIC STEATOSIS. 4. CHRONIC ANEMIA. 5. HYPOTHYROIDISM. 6. DEPRESSION. 7. HISTORY OF PULMONARY EMBOLISM, BILATERAL, ON XARELTO. 8. GASTROESOPHAGEAL REFLUX DISEASE. 9. GENERALIZED OSTEOARTHRITIS. DISCHARGE INSTRUCTIONS: Continue all the medications as before. The patient is strongly advised not to take any nonsteroidal antiinflammatory. Not to take Tylenol. The patient has no history of alcohol abuse or smoking. She is to see me in 5-10 days. Drink plenty of fluids. MEDICATIONS AT DISCHARGE: 1. Discharge the patient home today. 2. The patient is to follow up with Dr. Groves in 5-10 days. Call the office for appointment. NEW PRESCRIPTIONS: Cefdinir 300 mg p.o. b.i.d. for 7 days DIET INSTRUCTIONS: Heart Healthy ACTIVITY: As patient tolerates. SMOKING: N/A HOSPITAL COURSE: 65-year-old white female hospitalized with fever, chills, acute pyelonephritis which was E.coli resistant to Cipro. She was seen in the emergency room two days prior to hospitalization where she was given Cipro which didn't work obviously. The patient's culture sensitivity showed that she was resistant to Cipro but she was sensitive to Cephalosporin. She was started on Rocephin. She responded. Initially she was given Azactam along with it for a couple of days after that. She was switched to Omnicef. On the day of discharge, she almost got 6 doses of IV Rocephin. She was up and about. Condition improved remarkably. LAB DATA: Hemoglobin 10, hematocrit 31, WBC 3,800, normal differential. Creatinine 0.8, BUN 12, potassium 4, ALT 100 (normal is up to 46). AST 31 normal that was done a day prior to discharge. GGTP pending. Hepatitis profile during the stay in the hospital negative. CT scan of the abdomen was negative. Ultrasound of the liver showed hepatic steatosis. Echocardiogram showed LVH with normal LV contractility, mildly enlarged LA cavity, normal valves. Of note, the patient will be referred to Dr. Sutherland for abnormal liver profile. The patient is going to call herself and make an appointment with Dr. Parker. Copies of all the labs and Discharge Summary with History and Physical to Dr. Parker. CONDITION AT TIME OF DISCHARGE: Stable. TIME SPENT: More than 60 minutes. MTDD
--- NOTE | 2020-11-30 14:43 | PN ---
BILLING 11/24/20 ADMISSION DAY LEVEL 5 11/25/20 INTERMEDIATE 11/26/20 INTERMEDIATE 11/27/20 INTERMEDIATE 11/28/20 INTERMEDIATE 11/29/20 DISCHARGE MTDD
--- NOTE | 2020-12-01 08:36 | PN ---
DATE OF SERVICE: 11/29/20 - DISCHARGE NOTE SUBJECTIVE: 65-year-old white female hospitalized with acute pyelonephritis. The patient's acute pyelonephritis has resolved. She is afebrile for the last 3 to 4 days. She is better. No abdominal pain. She looks a lot better. The kidney functions are practically reverted back to normal. Chronic anemia persists. REVIEW OF SYSTEMS: CONSTITUTIONAL: No night sweats. No fatigue, malaise, lethargy. No fever or chills. HEENT: Eyes: No visual changes. No eye pain. No eye discharge. ENT: No runny nose. No epistaxis. No sinus pain. No sore throat. No odynophagia. No congestion. RESPIRATORY: No cough, no congestion. No hemoptysis. No shortness of breath. CARDIOVASCULAR: No angina symptoms. No CHF symptoms. No atypical chest pain for CAD. No palpitations. No PND. No orthopnea. GASTROINTESTINAL: No abdominal pain. No nausea or vomiting. No diarrhea or constipation. No hematemesis. No hematochezia. GENITOURINARY: No urgency. No frequency. No dysuria. No hematuria. No obstructive symptoms. No discharge. No pain. No significant abnormal bleeding. MUSCULOSKELETAL: No musculoskeletal pain; no joint swelling. NEUROLOGICAL: No headache. No neck pain. No syncope. No seizures. No dizziness. PSYCHIATRIC: Not anxious. No depression. No suicidal thoughts. No homicidal thoughts. SKIN: No rash. No lesions. No wounds. ENDOCRINE: No unexplained weight loss. No weight gain. HEMATOLOGIC/LYMPHATIC: No anemia. No purpura. No petechiae. No prolonged or excessive bleeding. No palpable lymph nodes. PHYSICAL EXAMINATION: VITAL SIGNS: Temperature 97.8, pulse 60, respiratory rate 16, blood pressure 104/52, pulse ox 98% on room air. HEENT: Head normocephalic, atraumatic. Eyes: Extraocular muscles are intact. Pupils are equal, round and reactive to light and accommodation. Ears: No lesions. Nose appeared normal. Throat: No exudate or erythema. NECK: Supple. No JVD, no carotid bruit. No lymphadenopathy or thyromegaly. LUNGS: Clear to auscultation. Percussion note normal. Chest symmetrical. HEART: S1, S2, no S3. No murmurs. No cyanosis or clubbing. No ascites. Pulses: Dorsalis pedis and posterior tibial pulses +1 to +2 bilaterally. ABDOMEN: Soft. Nontender. Bowel sounds active. No CVA tenderness. No mass felt. EXTREMITIES: No edema. Full range of motion of all extremities, equal. NEUROLOGIC: No focal deficit. Cranial nerves II through XII are grossly intact. No headache, no double vision or headache. SKIN: Not dry. Intact. Turgor - normal. LYMPHATIC: No palpable lymph nodes/no lymphedema. MUSCULOSKELETAL: Normal joints with no swelling. Muscle tone is normal. LABS: Hemoglobin 10, hematocrit 31, WBC 3,800, normal differential. Creatinine 0.8, BUN 20, potassium 4. ASSESSMENT: 1. ACUTE PYELONEPHRITIS RESOLVED. 2. APPETITE IS UNKNOWN ETIOLOGY SEEMS TO HAVE RESOLVED, COULD BE HEPATIC STEATOSIS IN THIS NONSMOKER, NO HISTORY OF ALCOHOL ABUSE. ALL HEPATITIS PROFILE NEGATIVE, DONE TWICE IN THE PAST ONE YEAR. PLAN: 1. Discharge the patient home on Omnicef to be given b.i.d. for 7 days. 2. The patient will be given a dose of Rocephin today. 3. GGT still pending. 4. The patient is up and about. 5. The patient's peer tutor is Dr. Parker. 6. The patient has chronic anemia, has mild leukopenia. The patient may have myelodysplastic syndrome. Will follow her CBC with diff. She declined any hematological consultation. 7. The patient had an echo done with normal LV contractility with LVH, was done because of the patient's vague chest pain which was more right-sided unrelated to exertion. She was advised stress test as an outpatient. She is going to think about it. CONDITION: Stable. TIME SPENT: More than 30 minutes. Plan and coordination of the patient's care discussed in the presence of nurse. RIANA
--- NOTE | 2020-12-01 11:20 | ECHO2D ---
Date of Exam: 11/29/2020 Ordering Physician: DR. MARZENA CUEVAS Room #: 109 Reason for Echo: SOB, H/O PE, HOSPITALIZED FOR ACUTE PYELONEPHRITIS M-Mode Normal Adult Results LV Dimensions Normal Adult Results AoV Opening excursions >1.6 >1.6 LVEDD-base- 3.5-5.8 4.9 Ao root dimensions 2.0-3.7 3.8 LVESD-base- 3.1-4.6 L. Atrium dimensions 1.9-3.8 4.2 Post. Wall thickness 0.8-1.1 1.1 IV septum (thickness) 0.7-1.2 1.3 Post. Wall excursion 0.72-1.3 NORMAL Septal motion NORMAL Systolic motion R. Ventricular cavity 1.5-2.0 NORMAL LVEF 60% 65% Paradoxical septal wall motion NORMAL 2-D : 2-D M Mode Echocardiogram was performed using apical four chamber and left parasternal long and short axis views. Mitral, tricuspid and aortic valves appear to be normal. Contractility of the left ventricle seems to be normal, so is the cavity size. ENLARGED LEFT ATRIAL CAVITY. Aortic root appears to be normal. There is no pericardial effusion. There is no thrombus noted in the left ventricle or left atrial cavity. No mitral valve prolapse noted. M-MODE: MV: NORMAL AV: NORMAL TV: NORMAL PV: CHAMBER SIZE: ENLARGED LEFT ATRIAL CAVITY WALL MOTION: NORMAL PERICARDIUM: NORMAL INTERPRETATION: 1. LEFT VENTRICULAR HYPERTROPHY WITH ENLARGED LEFT ATRIAL CAVITY 2. NORMAL LEFT VENTRICLE CONTRACTILITY 3. NORMAL VALVES MTDD
== END 2020-11-29 13:31 | disposition home or self-care (01) | DRG 690 ==
LOC: ED 18:02 → MEDSURG A 20:50
PROVIDERS: ADMIT Internal Medicine; ATTEND Internal Medicine
DX: M19.90 Unspecified osteoarthritis, unspecified site; E88.89 Other specified metabolic disorders; K64.9 Unspecified hemorrhoids; E78.5 Hyperlipidemia, unspecified; B96.20 Unspecified Escherichia coli [E. coli] as the cause of diseases classified elsewhere; F32.9 Major depressive disorder, single episode, unspecified; N32.81 Overactive bladder; N18.2 Chronic kidney disease, stage 2 (mild); K21.9 Gastro-esophageal reflux disease without esophagitis; Z79.01 Long term (current) use of anticoagulants; E03.9 Hypothyroidism, unspecified; I74.9 Embolism and thrombosis of unspecified artery; R11.2 Nausea with vomiting, unspecified; N39.0 Urinary tract infection, site not specified; D64.9 Anemia, unspecified; R10.9 Unspecified abdominal pain; N12 Tubulo-interstitial nephritis, not specified as acute or chronic; E87.6 Hypokalemia; I25.10 Atherosclerotic heart disease of native coronary artery without angina pectoris; I10 Essential (primary) hypertension

== ENCOUNTER 2021-09-02 08:42 | Inpatient (IN) ==
--- NOTE | 2021-09-02 09:31 | ED.PDOC ---
General ED Provider: Dr. EMANI SANDOVAL Chief Complaint: Shortness of Air Stated Complaint: Congestion and cough X 2-3 days with progressively worsening with dyspnea. Uses oxygen at home. No known exposure to COVID Time Seen by Provider: 09/02/21 08:47 Mode of Arrival: Ambulance Information Source: Patient Exam Limitations: Clinical condition Primary Care Provider: MARZENA CUEVAS Nursing and Triage Documentation Reviewed and Agree: Yes Does patient meet sepsis criteria?: No System Inflammatory Response Syndrome: Not Applicable Sepsis Protocol: For patient's 13 years and over: Temp is 96.8 and below OR 101 and greater Pulse >90 BPM Resp >20/minute Acutely Altered Mental Status Are patient's symptoms suggestive of a new infection, such as: -Pneumonia -Skin, Soft Tissue -Endocarditis -UTI -Bone, Joint Infection -Implantable Device -Acute Abdominal Infection -Wound Infection -Meningitis -Blood Stream Catheter Infection -Unknown Respiratory Complaint Exam Respiratory Complaint/Exam Onset/Duration: 3-4 days Symptoms Are: Still present Timing: Constant Initial Severity: Moderate Current Severity: Mild Location: Chest Character: Reports Non-productive cough Aggravating: Reports Allergens Alleviating: Reports Bronchodilators Associated Signs and Symptoms: Reports Dyspnea, Wheezing and Nasal congestion Related History: Reports Similar episode Related Surgical History: Reports None Pulmonary Embolism Risk Factors: None Review of Systems Review Of Systems Constitutional: Reports Malaise and Weakness All Other Systems: Reviewed and Negative [facility] Medical History Hypothyroid Mitral valve prolapse Trigger finger Family History FATHER Prostate CA BROTHER Cancer of lung Mother Diabetes Social History (Updated 09/02/21 @ 13:35 by MOLLY GONG RN) Smoking and tobacco status: Never smoker Substance use type: does not use History of recent travel: No Surgical History H/O foot surgery H/O neck surgery H/O: hysterectomy Hx of appendectomy Hx of cholecystectomy Hx of shoulder surgery Previous back surgery Status post left partial knee replacement Female Reproductive History Menstrual Hx Hysterectomy: No Hx Tubal Ligation: No Physical Exam Physical Exam Appearance: Reports Ill-appearing Ill-appearing: Mild Pain Distress: Mild Eyes: Reports JEAN CARLOS, EOMI, Conjunctiva clear, Conjunctiva pale and Right pupil size (PERL_A) ENT: Reports Ears normal, Oropharynx normal and TMs Occluded Neck: Supple Respiratory: Reports Airway patent, Breath sounds diminished and Wheezes Cardiovascular: Reports RRR and No murmur GI/: Reports Soft, Nontender and No masses Musculoskeletal: Reports Normal strength, ROM intact, No edema and No calf ten derness Skin: Reports Warm, Dry and Normal color Neurological: Reports Sensation intact, Motor intact, Reflexes intact, Cranial nerves intact, Alert and Oriented Psychiatric: Reports Affect appropriate and Mood appropriate Interpretation Radiology Interpretation Radiology Interpretation By: Radiologist Exam Interpreted: Portable CXR ( No acute cardiopulmonary process.) Critical Care Note Critical Care Note Total Critical Care Time (mins): 30 Course Course Hematology/Chemistry: 09/05/21 04:50 09/05/21 04:50 Orders, Labs, Meds: Lab Review 09/02/21 09/02/21 09/02/21 10:03 10:03 10:03 WBC 6.37 RBC 4.49 Hgb 12.6 Hct 39.3 MCV 87.5 MCH 28.1 MCHC 32.1 RDW Coeff of Eliu 17.5 H Plt Count 199 Immature Gran % (Auto) 0.5 Neut % (Auto) 68.8 Lymph % (Auto) 20.6 [place] % (Auto) 5.2 Eos % (Auto) 4.4 Baso % (Auto) 0.5 Neut # (Auto) 4.4 Lymph # (Auto) 1.3 [place] # (Auto) 0.3 L Eos # (Auto) 0.3 Baso # (Auto) 0.0 Immature Gran # (Auto) 0.0 ESR 19 Puncture Site Base Excess O2 Saturation ABG pH ABG pCO2 ABG pO2 ABG HCO3 ABG Total CO2 Joe Test Hemoglobin Oxyhemoglobin Carboxyhemoglobin Total Hemoglobin O2 Delivery Device Oxygen Liter Flow Sodium 142.9 Potassium 4.18 Chloride 110.7 H Carbon Dioxide 24.3 Anion Gap 12.08 BUN 8.3 Creatinine 0.75 Estimated GFR (MDRD) 78.00 BUN/Creatinine Ratio 11.06 Glucose 134.7 H Calcium 8.83 Total Bilirubin 0.49 AST 46.1 H ALT 45.2 H Alkaline Phosphatase 153.5 H Total Creatine Kinase 89.7 Total Protein 7.41 Albumin 4.35 Globulin 3.06 Albumin/Globulin Ratio 1.42 D-Dimer 404.71 Urine Color Urine Clarity Urine pH Ur Specific Hegins Urine Protein Urine Glucose (UA) Urine Ketones Urine Blood Urine Nitrite Urine Bilirubin Urine Urobilinogen Ur Leukocyte Esterase Urine Microscopic RBC Urine Microscopic WBC Ur Squamous Epith Cells Urine Bacteria Adenovirus (PCR) B. pertussis DNA (PCR) B.parapertussis DNA PCR C. pneumoniae DNA (PCR) Coronavirus OC43 (PCR) Coronavirus HKU1 (PCR) Coronavirus 229E (PCR) Coronavirus NL63 (PCR) Human Metapneumovir PCR Influenza Type A (PCR) Influenza B (RT-PCR) M. pneumoniae (PCR) Parainfluenza 1 (PCR) Parainfluenza 2 (PCR) Parainfluenza 3 (PCR) Parainfluenza 4 (PCR) RSV (PCR) Entero/Rhino (PCR) SARS-CoV-2 (PCR) 09/02/21 09/02/21 09/02/21 10:05 10:20 10:30 WBC RBC Hgb Hct MCV MCH MCHC RDW Coeff of Eliu Plt Count Immature Gran % (Auto) Neut % (Auto) Lymph % (Auto) Chilton % (Auto) Eos % (Auto) Baso % (Auto) Neut # (Auto) Lymph # (Auto) [place] # (Auto) Eos # (Auto) Baso # (Auto) Immature Gran # (Auto) ESR Puncture Site Rb Base Excess -1.3 O2 Saturation 93.1 L ABG pH 7.35 ABG pCO2 44.0 ABG pO2 71.0 L ABG HCO3 24.3 ABG Total CO2 25.7 H Joe Test Pos Hemoglobin 1.3 Oxyhemoglobin 93.6 L Carboxyhemoglobin 1.8 H Total Hemoglobin 12.6 O2 Delivery Device Cannula Oxygen Liter Flow 2.00 Sodium Potassium Chloride Carbon Dioxide Anion Gap BUN Creatinine Estimated GFR (MDRD) BUN/Creatinine Ratio Glucose Calcium Total Bilirubin AST ALT Alkaline Phosphatase Total Creatine Kinase Total Protein Albumin Globulin Albumin/Globulin Ratio D-Dimer Urine Color Yellow Urine Clarity Cloudy Urine pH 5.5 Ur Specific Hegins 1.025 Urine Protein Negative Urine Glucose (UA) Negative Urine Ketones Negative Urine Blood Negative Urine Nitrite Negative Urine Bilirubin Negative Urine Urobilinogen 2.0 H Ur Leukocyte Esterase 1+ H Urine Microscopic RBC 2-5 Urine Microscopic WBC 5-10 Ur Squamous Epith Cells 5-10 Urine Bacteria 3+ Adenovirus (PCR) Not detected B. pertussis DNA (PCR) Not detected B.parapertussis DNA PCR Not detected C. pneumoniae DNA (PCR) Not detected Coronavirus OC43 (PCR) Not detected Coronavirus HKU1 (PCR) Not detected Coronavirus 229E (PCR) Not detected Coronavirus NL63 (PCR) Not detected Human Metapneumovir PCR Not detected Influenza Type A (PCR) Not detected Influenza B (RT-PCR) Not detected M. pneumoniae (PCR) Not detected Parainfluenza 1 (PCR) Not detected Parainfluenza 2 (PCR) Not detected Parainfluenza 3 (PCR) Not detected Parainfluenza 4 (PCR) Not detected RSV (PCR) Not detected Entero/Rhino (PCR) Detected H SARS-CoV-2 (PCR) Not detected Orders Category Date Time Status ADMIT PAT[facility] ADMISSION 09/02/21 11:31 Completed ABG DRAW REQUEST Stat CARDIO 09/02/21 09:31 Completed EKG-(ED ONLY) Stat CARDIO 09/02/21 09:31 Completed METERED DOSE INHALATION Routine CARDIO 09/02/21 09:44 Completed OXYGEN Routine CARDIO 09/02/21 09:31 Completed OXYGEN Routine CARDIO 09/02/21 11:32 Completed ACTIVITY .BR with BRP CARE 09/02/21 11:32 Completed BLOOD GLUCOSE MONITORING 0630,1100,1700,2100 CARE 09/02/21 11:33 Completed INTAKE & OUTPUT Q8HR CARE 09/02/21 11:32 Completed TELEMETRY MONITORING TELE CARE 09/02/21 11:31 Completed VITAL SIGNS Q8HR CARE 09/02/21 11:32 Completed REGULAR DIET DIETARY 09/02/21 Lunch Completed IV [ED IV/MEDIPORT/POWERPORT] .ONCE EMERGENCY 09/02/21 09:31 Completed ABG COOX Stat LAB 09/02/21 10:30 Completed BLOOD CULTURE (ED ONLY) Stat LAB 09/02/21 10:03 Completed CBC W/ AUTO DIFF DAILY@0600 LAB 09/03/21 01:37 Completed CBC W/ AUTO DIFF DAILY@0600 LAB 09/04/21 04:46 Completed CBC W/ AUTO DIFF Stat LAB 09/02/21 10:03 Completed CMP [COMPREHENSIVE METABOLIC PANEL] Stat LAB 09/02/21 10:03 Completed COMPREHENSIVE METABOLIC PANEL DAILY@0600 LAB 09/03/21 01:37 Completed COMPREHENSIVE METABOLIC PANEL DAILY@0600 LAB 09/04/21 04:46 Completed CPK [CREATINE KINASE] Stat LAB 09/02/21 10:03 Completed D-DIMER Stat LAB 09/02/21 10:03 Completed ESR Stat LAB 09/02/21 10:03 Completed RESPIRATORY PANEL 2.1 (PCR) Stat LAB 09/02/21 10:20 Completed SPUTUM CULTURE Stat LAB 09/02/21 11:17 Completed TROPONIN I Q8H LAB 09/02/21 17:48 Completed TROPONIN I Q8H LAB 09/03/21 01:37 Completed UA [URINALYSIS C & S IF INDICATED] Stat LAB 09/02/21 10:05 Completed URINE CULTURE Stat LAB 09/02/21 10:05 Completed 0.9 % Sodium Chloride [Saline Flush] MEDS 09/02/21 09:31 Discontinued 1 syr IVF PRN PRN Acetaminophen [Tylenol] MEDS 09/02/21 11:32 Discontinued 650 mg PO Q4H PRN Albuterol Inhaler(with Spacer) [Ventolin Hfa (Per Puff- MEDS 09/02/21 09:41 Discontinued with Spacer)] 2 puff IH ONCE STA Aspirin [Aspirin Chewable] MEDS 09/03/21 08:30 Discontinued 81 mg PO DAILYWM Azithromycin [Zithromax] MEDS 09/02/21 11:32 Discontinued 500 mg PO ONCE STA Ceftriaxone/D5w 1 gm Premix [Rocephin 1 gm/50 ml D5w] MEDS 09/03/21 09:00 Discontinued 1 gm in 50 ml IV DAILY Ceftriaxone/D5w 1 gm Premix [Rocephin 1 gm/50 ml D5w] MEDS 09/02/21 11:09 Discontinued 1 gm in 50 ml IV ONCE Citalopram Hydrobromide [Celexa] MEDS 09/02/21 21:00 Discontinued 20 mg PO BID Diltiazem HCl [Cardizem] MEDS 09/02/21 21:00 Discontinued 30 mg PO BID Methylprednisolone Sod Succ/Pf [Solu-Medrol 125 mg] MEDS 09/02/21 11:11 Discontinued 125 mg IVP ONCE STA Methylprednisolone Sod Succ/Pf [Solu-Medrol 125 mg] MEDS 09/02/21 21:00 Discontinued 125 mg IVP Q8HR Ondansetron HCl/Pf [Zofran 4 mg/2 ml] MEDS 09/02/21 11:32 Discontinued 4 mg IVP Q6H PRN Rivaroxaban [Xarelto] MEDS 09/03/21 08:30 Discontinued 20 mg PO DAILYWM Rosuvastatin Calcium [Crestor] MEDS 09/03/21 09:00 Discontinued 40 mg PO DAILY Sodium Chloride 0.9% [Sodium Chloride] 1,000 ml MEDS 09/02/21 12:00 Discontinued IV 125 mls/hr RESUSCITATION STATUS Routine OTHERS 09/02/21 11:32 Completed CHEST, 1V AP ONLY Stat RADS 09/02/21 09:31 Completed PT CONSULT Routine THERAPIES 09/02/21 15:50 Completed Medications Discontinued Medications Generic Name Dose Route Start Last Admin Trade Name Freq PRN Reason Stop Dose Admin Acetaminophen 650 mg 09/02/21 11:32 09/04/21 00:38 Acetaminophen 325 Mg Tablet PO 650 mg Q4H PRN Administration Analgesia Albuterol Sulfate 2 puff 09/02/21 09:41 09/02/21 10:42 Albuterol Sulfate (Ventolin Hfa) 18 Gm 1 Puff With Spacer IH 09/02/21 09:42 2 puff ONCE STA Administration Albuterol/Ipratropium 3 ml 09/02/21 14:00 09/05/21 10:00 Ipratropium/Albuterol Vial.Neb NEB 3 ml RTQID BLAINE Administration Aspirin 81 mg 09/03/21 08:30 09/05/21 08:28 Aspirin 81 Mg Tab.Chew PO 81 mg DAILYWM BLAINE Administration Azithromycin 500 mg 09/02/21 11:32 09/02/21 11:54 Azithromycin 250 Mg Tablet PO 09/02/21 11:33 500 mg ONCE STA Administration Citalopram Hydrobromide 20 mg 09/02/21 21:00 09/05/21 08:29 Citalopram Hydrobromide 20 Mg Tablet PO 20 mg BID BLAINE Administration Diltiazem HCl 30 mg 09/02/21 21:00 09/05/21 08:29 Diltiazem Hcl 30 Mg Tablet PO 30 mg BID BLAINE Administration Famotidine 40 mg 09/02/21 17:00 09/05/21 05:36 Famotidine 20 Mg Tablet PO 40 mg BIDAC BLAINE Administration CEFTRIAXONE/D5W 1 GM PREMIX 1 gm in 50 mls @ 75 mls/hr 09/02/21 11:09 09/02/21 11:15 Rocephin 1 Gm/50 Ml D5w IV 09/02/21 11:48 75 mls/hr ONCE STA Administration Sodium Chloride 1,000 mls @ 125 mls/hr 09/02/21 12:00 09/03/21 14:56 Sodium Chloride IV 125 mls/hr .Q8H BLAINE Administration CEFTRIAXONE/D5W 1 GM PREMIX 1 gm in 50 mls @ 75 mls/hr 09/03/21 09:00 09/05/21 08:28 Rocephin 1 Gm/50 Ml D5w IV 09/06/21 08:59 75 mls/hr DAILY BLAINE Administration Doxycycline Hyclate 100 mg/ 100 mls @ 50 mls/hr 09/03/21 21:00 09/03/21 21:05 Sodium Chloride IV 09/06/21 20:59 50 mls/hr Q12HR BLAINE Administration Insulin Human Regular 0 unit 09/02/21 16:39 09/05/21 13:11 Insulin Regular, Human 100 Unit/Ml (3ml) Vial SUBCUT 8 unit PRN PRN Administration Hyperglycemia Protocol Levothyroxine Sodium 50 mcg 09/03/21 06:30 09/05/21 05:36 Levothyroxine Sodium 50 Mcg Tablet PO 50 mcg QDAC BLAINE Administration Lorazepam 1 mg 09/02/21 21:00 09/05/21 08:29 Lorazepam 1 Mg Tablet PO 1 mg BID BLAINE Administration Methylprednisolone Sodium Succinate 125 mg 09/02/21 11:11 09/02/21 11:16 Methylprednisolone Sod Succ/Pf 125 Mg/2 Ml Vial IVP 09/02/21 11:12 125 mg ONCE STA Administration Methylprednisolone Sodium Succinate 125 mg 09/02/21 21:00 09/05/21 05:36 Methylprednisolone Sod Succ/Pf 125 Mg/2 Ml Vial IVP 125 mg Q8HR BLAINE Administration Nitroglycerin 0.4 mg 09/02/21 13:54 Nitroglycerin 0.4 Mg Tab.Subl SL Q5MIN X 3 DOSES PRN Chest Pain Ondansetron HCl 4 mg 09/02/21 11:32 Ondansetron Hcl/Pf 4 Mg/2 Ml Sdv IVP Q6H PRN Nausea / Vomiting Rivaroxaban 20 mg 09/03/21 08:30 09/05/21 08:30 Rivaroxaban 10 Mg Tablet PO 20 mg DAILYWM BLAINE Administration Rosuvastatin Calcium 40 mg 09/03/21 09:00 09/05/21 08:29 Rosuvastatin Calcium 10 Mg Tablet PO 40 mg DAILY BLAINE Administration Sodium Chloride 1 syr 09/02/21 09:31 09/05/21 05:36 0.9% Sodium Chloride 10 Ml Disp.Syrin IVF 1 syr PRN PRN Administration To flush IV Tramadol HCl 50 mg 09/02/21 21:00 09/05/21 08:29 Tramadol Hcl 50 Mg Tablet PO 50 mg BID BLAINE Administration Vital Signs: Temp Pulse Resp BP Pulse Ox 09/02/21 10:44 66 20 147/87 H 94 L 09/02/21 08:45 97.0 F L 78 22 147/84 H 95 Discharge Plan Discharge Patient Disposition: ADMITTED INPATIENT Discharge Problem: Acute exacerbation of chronic bronchitis ED Provider: EMANI SANDOVAL Condition: Stable Physician Progress Note: []
[2021-09-02] MEDS ORDERED: VENTOLIN HFA (PER PUFF-WITH SPACER) IH STA (09:41)
[2021-09-02 10:11] LABS: BASOPHILS % (AUTO) 0.5 % (0.0-3.0); EOSINOPHILS # (AUTO) 0.3 K/ul (0.0-0.7); EOSINOPHILS % (AUTO) 4.4 % (0.0-7.0); HEMATOCRIT 39.3 % (37.0-47.0); HEMOGLOBIN 12.6 g/dl (12.0-16.0); IMMATURE GRANULOCYTE % (AUTO) 0.5 % (0.0-5.0); LYMPHOCYTES # (AUTO) 1.3 K/uL (0.60-3.4); LYMPHOCYTES % (AUTO) 20.6 (10.0-50.0); MEAN CORPUSCULAR HEMOGLOBIN 28.1 pg (27.0-31.0); MEAN CORPUSCULAR HGB CONC 32.1 (31.8-35.4); MEAN CORPUSCULAR VOLUME 87.5 fl (81.0-99.0); MONOCYTES # (AUTO) 0.3 K/uL (0.4-2.0); MONOCYTES % (AUTO) 5.2 (0-10); NEUTROPHILS # (AUTO) 4.4 K/ul (2.0-6.9); NEUTROPHILS % (AUTO) 68.8 % (42.2-75.2); PLATELET COUNT 199 10^3/uL (140-440); RDW COEFFICIENT OF VARIATION 17.5 % (11.6-14.8); RED BLOOD COUNT 4.49 10^6/ul (4.20-5.40); WHITE BLOOD COUNT 6.37 K/ul (4.6-10.2)
[2021-09-02 10:12] LABS: BILIRUBIN,URINE Negative (NEGATIVE); CLARITY,URINE Cloudy (CLEAR); COLOR,URINE Yellow (YELLOW); GLUCOSE, URINE (UA) Negative (NEGATIVE); KETONES,URINE Negative (NEGATIVE); LEUKOCYTE ESTERASE ,URINE 1+ (NEGATIVE); NITRITE,URINE Negative (NEGATIVE); PH,URINE 5.5 (5-9); PROTEIN,URINE Negative (NEGATIVE); URINE, BLOOD Negative (NEGATIVE)
[2021-09-02 10:23] LABS: BORDETELLA PARAPERTUSSIS (PCR) NOT DETECTED (NOT DETECT); BORDETELLA PERTUSSIS (PCR) NOT DETECTED (NOT DETECT); CHLAMYDIA PNEUMONIAE (PCR) NOT DETECTED (NOT DETECT); CORONAVIRUS 229E (PCR) NOT DETECTED (NOT DETECT); CORONAVIRUS HKU1 (PCR) NOT DETECTED (NOT DETECT); CORONAVIRUS NL63 (PCR) NOT DETECTED (NOT DETECT); CORONAVIRUS OC43 (PCR) NOT DETECTED (NOT DETECT); HUMAN METAPNEUMOVIRUS (PCR) NOT DETECTED (NOT DETECT); INFLUENZA B (PCR) NOT DETECTED (NOT DETECT); MYCOPLASMA PNEUMONIAE (PCR) NOT DETECTED (NOT DETECT); PARAINFLUENZA VIRUS 1 (PCR) NOT DETECTED (NOT DETECT); PARAINFLUENZA VIRUS 2 (PCR) NOT DETECTED (NOT DETECT); PARAINFLUENZA VIRUS 3 (PCR) NOT DETECTED (NOT DETECT); PARAINFLUENZA VIRUS 4 (PCR) NOT DETECTED (NOT DETECT); RESPIRATORY SYNCYTIAL V (PCR) NOT DETECTED (NOT DETECT); SARS_COV_2 (PCR) NOT DETECTED (NOT DETECT)
[2021-09-02 10:25] LABS: ALANINE AMINOTRANSFERASE 45.2 U/L (0-35); ALBUMIN 4.35 g/dL (3.5-5.0); ALKALINE PHOSPHATASE 153.5 U/L (53-141); ASPARTATE AMINO TRANSFERASE 46.1 U/L (14-36); BILIRUBIN,TOTAL 0.49 mg/dL (0.2-1.3); BLOOD UREA NITROGEN 8.3 mg/dL (7-17); CALCIUM 8.83 mg/dL (8.4-10.2); CARBON DIOXIDE 24.3 mmol/L (22-30.0); CHLORIDE 110.7 mmol/L (98-107); CREATINE KINASE 89.7 U/L (30-135); CREATININE 0.75 mg/dL (0.60-1.30); GLUCOSE 134.7 mg/dL (74-106); POTASSIUM 4.18 mmol/L (3.5-5.1); SODIUM 142.9 mmol/L (134.5-145); TOTAL PROTEIN 7.41 g/dL (6.3-8.2)
[2021-09-02 10:38] LABS: ABG O2 HGB 93.6 % (95-100); ABG PH 7.35 (7.35-7.45); BEecf -1.3 (-2.0-3.0); COHb 1.8 (0.5-1.5); HCO3 24.3 (21-28); MetHb 1.3 (0-1.5); TCO2 25.7 (19-24); sO2 93.1 % (94-98); tHb 12.6 g/dl (11.7-17.4)
[2021-09-02 10:47] LABS: ERYTHROCYTE SEDIMENTATION RATE 19 mm/hr (0-20)
[2021-09-02 10:50] LABS: BACTERIA,URINE 3+ (NOT PRESENT)
[2021-09-02] MEDS ORDERED: ROCEPHIN 1 GM/50 ML D5W 1 GM/50 ML BAG IV STA (11:09)
--- NOTE | 2021-09-02 11:10 | DI ---
EXAM: Chest one-view. HISTORY: Cough and congestion. COMPARISON: 11/22/2020 chest x-ray. FINDINGS: The lungs are clear. The cardiac silhouette is normal in size. There is no pulmonary ed angel present. There is no pleural effusion identified. Postoperative change about the right and left shoulder. IMPRESSION: No acute cardiopulmonary process.
[2021-09-02 11:11] LABS: ADENOVIRUS (PCR) NOT DETECTED (NOT DETECT); HUMAN RHINOVIRUS/ENTEROV (PCR) DETECTED (NOT DETECT)
[2021-09-02] MEDS ORDERED: SOLU-MEDROL 125 MG IVP STA (11:11)
[2021-09-02] MEDS ORDERED: ZITHROMAX PO STA (11:32)
[2021-09-02] MEDS ORDERED: ZOFRAN 4 MG/2 ML IVP PRN (11:32)
[2021-09-02] MEDS: SODIUM CHLORIDE 1,000 ML IV SCH ×2 (11:54→20:46)
[2021-09-02] MEDS ORDERED: LOVENOX SUBCUT SCH (12:00)
[2021-09-02 13:16] VITALS: BMI 30.7
[2021-09-02] MEDS ORDERED: NITROSTAT SL PRN (13:54)
[2021-09-02] MEDS ORDERED: ATROVENT HFA INHALER (PER PUFF-WITH SPACER) IH SCH (14:00)
[2021-09-02] MEDS ORDERED: VENTOLIN HFA (PER PUFF-WITH SPACER) IH SCH (14:00)
[2021-09-02] MEDS ORDERED: DUONEB NEB SCH (14:00)
[2021-09-02] MEDS: DUONEB NEB SCH ×2 (14:13→20:30)
[2021-09-02] MEDS: HUMULIN R SUBCUT PRN ×2 (17:38→21:39)
[2021-09-02] MEDS: PEPCID PO SCH (17:38)
[2021-09-02] MEDS: TYLENOL PO PRN (19:09)
[2021-09-02] MEDS: ULTRAM PO SCH (20:22)
[2021-09-02] MEDS: CARDIZEM PO SCH (20:22)
[2021-09-02] MEDS: ATIVAN PO SCH (20:22)
[2021-09-02] MEDS: CELEXA PO SCH (20:22)
[2021-09-02] MEDS: SOLU-MEDROL 125 MG IVP SCH (21:09)
[2021-09-03] MEDS: SODIUM CHLORIDE 1,000 ML IV SCH ×2 (04:32→14:56)
[2021-09-03 04:36] LABS: BASOPHILS % (AUTO) 0.1 % (0.0-3.0); HEMATOCRIT 36.4 % (37.0-47.0); HEMOGLOBIN 11.9 g/dl (12.0-16.0); IMMATURE GRANULOCYTE % (AUTO) 0.5 % (0.0-5.0); LYMPHOCYTES # (AUTO) 1.1 K/uL (0.60-3.4); LYMPHOCYTES % (AUTO) 14.9 (10.0-50.0); MEAN CORPUSCULAR HEMOGLOBIN 28.6 pg (27.0-31.0); MEAN CORPUSCULAR HGB CONC 32.7 (31.8-35.4); MEAN CORPUSCULAR VOLUME 87.5 fl (81.0-99.0); MONOCYTES % (AUTO) 0.5 (0-10); NEUTROPHILS # (AUTO) 6.1 K/ul (2.0-6.9); PLATELET COUNT 207 10^3/uL (140-440); RDW COEFFICIENT OF VARIATION 17.8 % (11.6-14.8); RED BLOOD COUNT 4.16 10^6/ul (4.20-5.40); WHITE BLOOD COUNT 7.32 K/ul (4.6-10.2)
[2021-09-03 04:42] LABS: ALANINE AMINOTRANSFERASE 45.9 U/L (0-35); ALBUMIN 3.96 g/dL (3.5-5.0); ALKALINE PHOSPHATASE 154.8 U/L (53-141); ASPARTATE AMINO TRANSFERASE 42.5 U/L (14-36); BILIRUBIN,TOTAL 0.34 mg/dL (0.2-1.3); BLOOD UREA NITROGEN 13.1 mg/dL (7-17); CALCIUM 9.21 mg/dL (8.4-10.2); CARBON DIOXIDE 20.1 mmol/L (22-30.0); CHLORIDE 111.4 mmol/L (98-107); CREATININE 0.75 mg/dL (0.60-1.30); GLUCOSE 241.2 mg/dL (74-106); POTASSIUM 4.2 mmol/L (3.5-5.1); SODIUM 140.8 mmol/L (134.5-145); TOTAL PROTEIN 6.9 g/dL (6.3-8.2)
[2021-09-03] MEDS: DUONEB NEB SCH ×4 (04:45→20:00)
[2021-09-03] MEDS: SOLU-MEDROL 125 MG IVP SCH ×3 (05:47→20:58)
[2021-09-03] MEDS: PEPCID PO SCH ×2 (05:53→16:57)
[2021-09-03] MEDS: SYNTHROID PO SCH (05:53)
[2021-09-03] MEDS: HUMULIN R SUBCUT PRN ×4 (06:18→21:18)
[2021-09-03] MEDS: ATIVAN PO SCH ×2 (08:22→21:05)
[2021-09-03] MEDS: CELEXA PO SCH ×2 (08:23→21:05)
[2021-09-03] MEDS: CRESTOR PO SCH (08:23)
[2021-09-03] MEDS: ASPIRIN CHEWABLE PO SCH (08:23)
[2021-09-03] MEDS: ULTRAM PO SCH ×2 (08:23→21:05)
[2021-09-03] MEDS: CARDIZEM PO SCH ×2 (08:23→21:05)
[2021-09-03] MEDS: XARELTO PO SCH (08:25)
[2021-09-03] MEDS ORDERED: LEVOTHYROXINE 50 MCG PO SCH (09:00)
[2021-09-03] MEDS: ROCEPHIN 1 GM/50 ML D5W 1 GM/50 ML BAG IV SCH (09:20)
[2021-09-03] MEDS ORDERED: DOXYCYCLINE HYCLATE PO SCH (16:30)
[2021-09-03] MEDS: TYLENOL PO PRN (17:00)
[2021-09-03] MEDS ORDERED: DOXY-100 100 MG in SODIUM CHLORIDE 100ML 100 ML IV SCH (21:00)
[2021-09-04] MEDS: TYLENOL PO PRN (00:38)
[2021-09-04 04:52] LABS: BASOPHILS % (AUTO) 0.1 % (0.0-3.0); HEMATOCRIT 33.2 % (37.0-47.0); IMMATURE GRANULOCYTE # (AUTO) 0.2 (0.0-1.0); IMMATURE GRANULOCYTE % (AUTO) 2.3 % (0.0-5.0); LYMPHOCYTES % (AUTO) 9.7 (10.0-50.0); MEAN CORPUSCULAR HEMOGLOBIN 28.7 pg (27.0-31.0); MEAN CORPUSCULAR HGB CONC 33.1 (31.8-35.4); MEAN CORPUSCULAR VOLUME 86.7 fl (81.0-99.0); MONOCYTES # (AUTO) 0.2 K/uL (0.4-2.0); MONOCYTES % (AUTO) 1.6 (0-10); NEUTROPHILS # (AUTO) 8.5 K/ul (2.0-6.9); NEUTROPHILS % (AUTO) 86.3 % (42.2-75.2); PLATELET COUNT 209 10^3/uL (140-440); RDW COEFFICIENT OF VARIATION 18.1 % (11.6-14.8); RED BLOOD COUNT 3.83 10^6/ul (4.20-5.40); WHITE BLOOD COUNT 9.89 K/ul (4.6-10.2)
[2021-09-04] MEDS: DUONEB NEB SCH ×4 (04:55→19:25)
[2021-09-04 05:03] LABS: ALANINE AMINOTRANSFERASE 33.4 U/L (0-35); ALBUMIN 3.67 g/dL (3.5-5.0); ALKALINE PHOSPHATASE 126.1 U/L (53-141); ASPARTATE AMINO TRANSFERASE 26.6 U/L (14-36); BILIRUBIN,TOTAL 0.24 mg/dL (0.2-1.3); BLOOD UREA NITROGEN 17.6 mg/dL (7-17); CALCIUM 8.78 mg/dL (8.4-10.2); CARBON DIOXIDE 20.9 mmol/L (22-30.0); CHLORIDE 110.9 mmol/L (98-107); CREATININE 0.67 mg/dL (0.60-1.30); POTASSIUM 4.37 mmol/L (3.5-5.1); SODIUM 139.3 mmol/L (134.5-145); TOTAL PROTEIN 6.55 g/dL (6.3-8.2)
[2021-09-04] MEDS: SOLU-MEDROL 125 MG IVP SCH ×3 (05:54→20:22)
[2021-09-04] MEDS: HUMULIN R SUBCUT PRN ×4 (05:59→20:23)
[2021-09-04] MEDS: PEPCID PO SCH ×2 (06:00→16:53)
[2021-09-04] MEDS: SYNTHROID PO SCH (06:00)
[2021-09-04] MEDS: ATIVAN PO SCH ×2 (08:34→20:24)
[2021-09-04] MEDS: CARDIZEM PO SCH ×2 (08:34→20:23)
[2021-09-04] MEDS: CRESTOR PO SCH (08:34)
[2021-09-04] MEDS: ULTRAM PO SCH ×2 (08:35→20:24)
[2021-09-04] MEDS: XARELTO PO SCH (08:35)
[2021-09-04] MEDS: ASPIRIN CHEWABLE PO SCH (08:35)
[2021-09-04] MEDS: ROCEPHIN 1 GM/50 ML D5W 1 GM/50 ML BAG IV SCH (08:35)
[2021-09-04] MEDS: CELEXA PO SCH ×2 (08:35→20:24)
[2021-09-05] MEDS: DUONEB NEB SCH ×2 (04:50→10:00)
[2021-09-05 04:54] LABS: BASOPHILS % (AUTO) 0.2 % (0.0-3.0); HEMOGLOBIN 10.9 g/dl (12.0-16.0); IMMATURE GRANULOCYTE # (AUTO) 0.2 (0.0-1.0); IMMATURE GRANULOCYTE % (AUTO) 2.1 % (0.0-5.0); LYMPHOCYTES % (AUTO) 12.1 (10.0-50.0); MEAN CORPUSCULAR HEMOGLOBIN 28.3 pg (27.0-31.0); MEAN CORPUSCULAR VOLUME 85.7 fl (81.0-99.0); MONOCYTES # (AUTO) 0.1 K/uL (0.4-2.0); MONOCYTES % (AUTO) 1.7 (0-10); NEUTROPHILS % (AUTO) 83.9 % (42.2-75.2); PLATELET COUNT 218 10^3/uL (140-440); RDW COEFFICIENT OF VARIATION 18.3 % (11.6-14.8); RED BLOOD COUNT 3.85 10^6/ul (4.20-5.40); WHITE BLOOD COUNT 8.29 K/ul (4.6-10.2)
[2021-09-05 05:07] LABS: ALANINE AMINOTRANSFERASE 31.7 U/L (0-35); ALBUMIN 3.65 g/dL (3.5-5.0); ALKALINE PHOSPHATASE 113.2 U/L (53-141); ASPARTATE AMINO TRANSFERASE 24.5 U/L (14-36); BILIRUBIN,TOTAL 0.25 mg/dL (0.2-1.3); BLOOD UREA NITROGEN 21.9 mg/dL (7-17); CALCIUM 8.87 mg/dL (8.4-10.2); CARBON DIOXIDE 24.4 mmol/L (22-30.0); CHLORIDE 106.8 mmol/L (98-107); CREATININE 0.72 mg/dL (0.60-1.30); GLUCOSE 254.4 mg/dL (74-106); POTASSIUM 3.95 mmol/L (3.5-5.1); SODIUM 140.1 mmol/L (134.5-145); TOTAL PROTEIN 6.34 g/dL (6.3-8.2)
[2021-09-05 05:29] VITALS: BP 132/61; TEMP 98.1
[2021-09-05] MEDS: SOLU-MEDROL 125 MG IVP SCH (05:36)
[2021-09-05] MEDS: SYNTHROID PO SCH (05:36)
[2021-09-05] MEDS: PEPCID PO SCH (05:36)
[2021-09-05] MEDS: HUMULIN R SUBCUT PRN ×2 (05:37→13:11)
[2021-09-05] MEDS: ROCEPHIN 1 GM/50 ML D5W 1 GM/50 ML BAG IV SCH (08:28)
[2021-09-05] MEDS: ASPIRIN CHEWABLE PO SCH (08:28)
[2021-09-05] MEDS: ATIVAN PO SCH (08:29)
[2021-09-05] MEDS: ULTRAM PO SCH (08:29)
[2021-09-05] MEDS: CARDIZEM PO SCH (08:29)
[2021-09-05] MEDS: CRESTOR PO SCH (08:29)
[2021-09-05] MEDS: CELEXA PO SCH (08:29)
[2021-09-05] MEDS: XARELTO PO SCH (08:30)
--- NOTE | 2021-09-06 10:46 | PN ---
DATE OF SERVICE: 09/02/2021 SUBJECTIVE: The patient was seen and examined in the Emergency room and then followed in the room. She was hospitalized with acute bronchitis, COPD and wheezing. The patient's chest x-ray is negative for any pneumonitis. She is SARS Negative but the wheezing was audible in spite of the patient getting Solu-Medrol and NEBS treatment in the emergency room. Even after two hours she was still wheezing. The patient has no history of smoking or asthma. REVIEW OF SYSTEMS: CONSTITUTIONAL: No night sweats. No fatigue, malaise, lethargy. No fever or chills. HEENT: Eyes: No visual changes. No eye pain. No eye discharge. ENT: No runny nose. No epistaxis. No sinus pain. No sore throat. No odynophagia. No congestion. RESPIRATORY: No cough, no congestion. No hemoptysis. No shortness of breath. CARDIOVASCULAR: No angina symptoms. No CHF symptoms. No atypical chest pain for CAD. No palpitations. No PND. No orthopnea. GASTROINTESTINAL: No abdominal pain. No nausea or vomiting. No diarrhea or constipation. No hematemesis. No hematochezia. GENITOURINARY: No urgency. No frequency. No dysuria. No hematuria. No obstructive symptoms. No discharge. No pain. No significant abnormal bleeding. MUSCULOSKELETAL: No musculoskeletal pain; no joint swelling. NEUROLOGICAL: No headache. No neck pain. No syncope. No seizures. No dizziness. PSYCHIATRIC: Not anxious. No depression. No suicidal thoughts. No homicidal thoughts. SKIN: No rash. No lesions. No wounds. ENDOCRINE: No unexplained weight loss. No weight gain. HEMATOLOGIC/LYMPHATIC: No anemia. No purpura. No petechiae. No prolonged or excessive bleeding. No palpable lymph nodes. PHYSICAL EXAMINATION: GENERAL: The patient is doesn't seem to be in distress except for if she exert herself. HEENT: Head normocephalic, atraumatic. Eyes: Extraocular muscles are intact. Pupils are equal, round and reactive to light and accommodation. Ears: No lesions. Nose appeared normal. Throat: No exudate or erythema. NECK: Supple. No JVD, no carotid bruit. No lymphadenopathy or thyromegaly. LUNGS: Decreased breath sounds, mild wheeze. Good air entry. Blood gasses are acceptable with oxygen saturation more than 90% on room air. Clear to auscultation. Percussion note normal. Chest symmetrical. HEART: S1, S2, no S3. No murmurs. No cyanosis or clubbing. No ascites. Pulses: Dorsalis pedis and posterior tibial pulses +1 to +2 bilaterally. No evidence of CHF. ABDOMEN: Soft. Nontender. Bowel sounds active. No CVA tenderness. No mass felt. EXTREMITIES: No edema. Full range of motion of all extremities, equal. NEUROLOGIC: No focal deficit. Cranial nerves II through XII are grossly intact. No headache. No double vision. SKIN: Not dry. Intact. Turgor - normal. LYMPHATIC: No palpable lymph nodes/no lymphedema. MUSCULOSKELETAL: Normal joints with no swelling. Muscle tone is normal. LABS: EKG showed no acute changes. PLAN: 1. Hospitalized the patient was antibiotics and steroids. 2. The patient's history and physical done with in conjunction with Nurse Practitioner. TIME SPENT: More than 30 minutes. Plan and coordination of the patient's care discussed in the presence of nurse. RIANA
--- NOTE | 2021-09-06 12:39 | PN ---
DATE OF SERVICE: SUBJECTIVE: 66 year old white female hospitalized with acute bronchitis and COPD exacerbation. The patient is feeling better. The wheezing audible is practically absent. REVIEW OF SYSTEMS: CONSTITUTIONAL: No night sweats. No fatigue, malaise, lethargy. No fever or chills. HEENT: Eyes: No visual changes. No eye pain. No eye discharge. ENT: No runny nose. No epistaxis. No sinus pain. No sore throat. No odynophagia. No congestion. RESPIRATORY: No cough, no congestion. No hemoptysis. Mild shortness of breath on exertion. CARDIOVASCULAR: No angina symptoms. No CHF symptoms. No atypical chest pain for CAD. No palpitations. No PND. No orthopnea. GASTROINTESTINAL: No abdominal pain. No nausea or vomiting. No diarrhea or constipation. No hematemesis. No hematochezia. GENITOURINARY: No urgency. No frequency. No dysuria. No hematuria. No obstructive symptoms. No discharge. No pain. No significant abnormal bleeding. MUSCULOSKELETAL: No musculoskeletal pain; no joint swelling. NEUROLOGICAL: No headache. No neck pain. No syncope. No seizures. No dizziness. PSYCHIATRIC: Not anxious. No depression. No suicidal thoughts. No homicidal thoughts. SKIN: No rash. No lesions. No wounds. ENDOCRINE: No unexplained weight loss. No weight gain. HEMATOLOGIC/LYMPHATIC: No anemia. No purpura. No petechiae. No prolonged or excessive bleeding. No palpable lymph nodes. PHYSICAL EXAMINATION: VITAL SIGNS: Temperature 97.6, pulse 92, respiratory rate 18, blood pressure 150/84 and pulse ox 93%. HEENT: Head normocephalic, atraumatic. Eyes: Extraocular muscles are intact. Pupils are equal, round and reactive to light and accommodation. Ears: No lesions. Nose appeared normal. Throat: No exudate or erythema. NECK: Supple. No JVD, no carotid bruit. No lymphadenopathy or thyromegaly. LUNGS: Decreased breath sounds but clear to auscultation. Percussion note normal. Chest symmetrical. HEART: S1, S2, no S3. No murmurs. No cyanosis or clubbing. No ascites. Pulses: Dorsalis pedis and posterior tibial pulses +1 to +2 bilaterally. ABDOMEN: Soft. Nontender. Bowel sounds active. No CVA tenderness. No mass felt. EXTREMITIES: No edema. Full range of motion of all extremities, equal. NEUROLOGIC: No focal deficit. Cranial nerves II through XII are grossly intact. No headache. No double vision. SKIN: Not dry. Intact. Turgor - normal. LYMPHATIC: No palpable lymph nodes/no lymphedema. MUSCULOSKELETAL: Normal joints with no swelling. Muscle tone is normal. LABS: Hgb 11.9, hct 36, WBC 7,000 normal differential, creatinine 0.7, BUN 13, potassium 4.2. ASSESSMENT: 1. Acute asthmatic bronchitis seems to be under control 2. Hyperglycemia likely from steroids PLAN: 1. Continue steroids, NEBS and antibiotics. 2. Cardiovascular status is stable. 3. Blood pressure is borderline. TIME SPENT: More than 30 minutes. Plan and coordination of the patient's care discussed in the presence of nurse. RIANA
--- NOTE | 2021-09-06 12:43 | PN ---
DATE OF SERVICE: 09/04/2021 SUBJECTIVE: 66 year old white female hospitalized with acute exacerbation of COPD and bronchitis. The patient's condition seems to be improving. Feeling a lot better. REVIEW OF SYSTEMS: CONSTITUTIONAL: No night sweats. No fatigue, malaise, lethargy. No fever or chills. HEENT: Eyes: No visual changes. No eye pain. No eye discharge. ENT: No runny nose. No epistaxis. No sinus pain. No sore throat. No odynophagia. No congestion. RESPIRATORY: No cough, no congestion. No hemoptysis. No shortness of breath. CARDIOVASCULAR: No angina symptoms. No CHF symptoms. No atypical chest pain for CAD. No palpitations. No PND. No orthopnea. GASTROINTESTINAL: No abdominal pain. No nausea or vomiting. No diarrhea or constipation. No hematemesis. No hematochezia. GENITOURINARY: No urgency. No frequency. No dysuria. No hematuria. No obstructive symptoms. No discharge. No pain. No significant abnormal bleeding. MUSCULOSKELETAL: No musculoskeletal pain; no joint swelling. NEUROLOGICAL: No headache. No neck pain. No syncope. No seizures. No dizziness. PSYCHIATRIC: Not anxious. No depression. No suicidal thoughts. No homicidal thoughts. SKIN: No rash. No lesions. No wounds. ENDOCRINE: No unexplained weight loss. No weight gain. HEMATOLOGIC/LYMPHATIC: No anemia. No purpura. No petechiae. No prolonged or excessive bleeding. No palpable lymph nodes. PHYSICAL EXAMINATION: VITAL SIGNS: Temperature 98.7, pulse 75, respiratory rate 16, blood pressure 138/69 and pulse ox 95%. HEENT: Head normocephalic, atraumatic. Eyes: Extraocular muscles are intact. Pupils are equal, round and reactive to light and accommodation. Ears: No lesions. Nose appeared normal. Throat: No exudate or erythema. NECK: Supple. No JVD, no carotid bruit. No lymphadenopathy or thyromegaly. LUNGS: Decreased breath sounds but clear to auscultation. Percussion note normal. Chest symmetrical. HEART: S1, S2, no S3. No murmurs. No cyanosis or clubbing. No ascites. Pulses: Dorsalis pedis and posterior tibial pulses +1 to +2 bilaterally. ABDOMEN: Soft. Nontender. Bowel sounds active. No CVA tenderness. No mass felt. EXTREMITIES: No edema. Full range of motion of all extremities, equal. NEUROLOGIC: No focal deficit. Cranial nerves II through XII are grossly intact. No headache. No double vision. SKIN: Not dry. Intact. Turgor - normal. LYMPHATIC: No palpable lymph nodes/no lymphedema. MUSCULOSKELETAL: Normal joints with no swelling. Muscle tone is normal. LABS: Hgb 11, hct 33, WBC 9,800 normal differential, creatinine 0.6, BUN 17, potassium 4.3. ASSESSMENT: 1. Acute bronchitis with COPD seems to be resolving. The patient has mild wheeze expiratory on auscultation 2. Cardiovascular status is stable. Blood pressure seems to be well controlled. PLAN: 1. Blood sugar is elevated but she is on sliding scale likely cause for her blood sugar is steroids. CONDITION: Stable. TIME SPENT: More than 30 minutes. Plan and coordination of the patient's care discussed in the presence of nurse. RIANA
--- NOTE | 2021-09-06 14:22 | PN ---
DATE OF SERVICE: 09/05/2021 SUBJECTIVE: 66 year old white female hospitalized with acute bronchitis and wheezing. The patient was in respiratory failure. Admission to the emergency room it lasted more than several hours even after she was given steroids, NEBS treatment and antibiotics. The patient's wheezing subsided within 24-48 hours. She is feeling a lot better. The patient has multiple co-morbidities like coronary artery disease, dyslipidemia, hypertension. The patient was continued on all medications that she was on before. She has chronic anemia. The patient was treated with steroids antibiotics, NEBS and improved. At the time of discharge she was feeling a lot better. REVIEW OF SYSTEMS: CONSTITUTIONAL: No night sweats. No fatigue, malaise, lethargy. No fever or chills. HEENT: Eyes: No visual changes. No eye pain. No eye discharge. ENT: No runny nose. No epistaxis. No sinus pain. No sore throat. No odynophagia. No congestion. RESPIRATORY: No cough, no congestion. No hemoptysis. No shortness of breath. CARDIOVASCULAR: No angina symptoms. No CHF symptoms. No atypical chest pain for CAD. No palpitations. No PND. No orthopnea. GASTROINTESTINAL: No abdominal pain. No nausea or vomiting. No diarrhea or constipation. No hematemesis. No hematochezia. GENITOURINARY: No urgency. No frequency. No dysuria. No hematuria. No obstructive symptoms. No discharge. No pain. No significant abnormal bleeding. MUSCULOSKELETAL: No musculoskeletal pain; no joint swelling. NEUROLOGICAL: No headache. No neck pain. No syncope. No seizures. No dizziness. PSYCHIATRIC: Not anxious. No depression. No suicidal thoughts. No homicidal thoughts. SKIN: No rash. No lesions. No wounds. ENDOCRINE: No unexplained weight loss. No weight gain. HEMATOLOGIC/LYMPHATIC: No anemia. No purpura. No petechiae. No prolonged or excessive bleeding. No palpable lymph nodes. PHYSICAL EXAMINATION: VITALS: Oxygen saturation on room air was 93%. HEENT: Head normocephalic, atraumatic. Eyes: Extraocular muscles are intact. Pupils are equal, round and reactive to light and accommodation. Ears: No lesions. Nose appeared normal. Throat: No exudate or erythema. NECK: Supple. No JVD, no carotid bruit. No lymphadenopathy or thyromegaly. LUNGS: Clear with practically no wheezing. . Percussion note normal. Chest symmetrical. HEART: S1, S2, no S3. No murmurs. No cyanosis or clubbing. No ascites. Pulses: Dorsalis pedis and posterior tibial pulses +1 to +2 bilaterally. ABDOMEN: Soft. Nontender. Bowel sounds active. No CVA tenderness. No mass felt. Appetite had improved. EXTREMITIES: No edema. Full range of motion of all extremities, equal. NEUROLOGIC: No focal deficit. Cranial nerves II through XII are grossly intact. No headache. No double vision. SKIN: Not dry. Intact. Turgor - normal. LYMPHATIC: No palpable lymph nodes/no lymphedema. MUSCULOSKELETAL: Normal joints with no swelling. Muscle tone is normal. CONDITION: Stable. PLAN: 1. The patient was put on steroids, Side effects of steroids like avascular necrosis of femoral head, osteoporosis etc. was discussed. 2. BMI is 31 she was advised to lose weight. Advise to keep walking. Diet was discussed with her. 3. She is to be followed as an outpatient. 4. She had hyperglycemia from steroids therapy. She was sliding scale. She has now but the patient has been put on oral Prednisone. A1c is going to be checked before discharged. The patient is SARS Negative. TIME SPENT: More than 30 minutes. Plan and coordination of the patient's care discussed in the presence of nurse. RIANA
--- NOTE | 2021-09-06 14:37 | DS ---
DATE OF SERVICE: 09/05/2021 FINAL DIAGNOSIS: 1. Acute asthmatic bronchitis 2. Chronic lung disease likely asthma on home oxygen 3. Hyperglycemia in the hospital 4. Positive enterovirus 5. UTI DISCHARGE INSTRUCTIONS: Discharge home. The patient has home oxygen advised to wear it. She wants portable. Continue medications as before. MEDICATIONS AT DISCHARGE: Xarelto Celexa Levothyroxine Aspirin Diltazem Famotidine Nitroglycerin Tramadol Lorazepam Rosuvastatin NEW PRESCRIPTIONS: Omnicef 300mg PO twice a day for 5 days PRO AIR HFA two puffs QID PRN Prednisone 10mg twice a day for 5 days and after that one a day for 5 days with meals. A1c to be done before discharge. DIET INSTRUCTIONS: Explained about the diet for diabetes and hyperglycemia in detail. Advised to check the sugar at home. She has monitor at home. ACTIVITY: As tolerated HOSPITAL COURSE: 66 year old white female with multiple comorbidities was hospitalized with acute asthmatic bronchitis with bilateral wheezing which lasted for several hours or even approximately a day. On auscultation she had wheezing expiratory, wheezing without auscultation subsided after several hours of NEBS treatments, Steroids and antibiotics. The patient's condition improved. She was up and about with practically no wheezing even on auscultation. Her cardiovascular status was stable with no evidence of CHF or coronary insufficiency. The blood sugar was running high with sliding scale, she was covered with it likely from steroids. She has BMI of 31 and advised to lose weight and advised to walk on a daily basis. She was discharged on steroids and antibiotics. She was advised to continue the rest of the medications as before. She is to be followed as an outpatient in 5-7 days. Side effects of Prednisone discussed in detail. On discharge the patient's hgb was 10.9, hct 33, WBC 8,200 normal differential, creatinine 0.7, BUN 21, potassium 3.9 and glucose was 254. Oxygen saturation 93% on room air. CONDITION: Stable. TIME SPENT: More than 60 minutes. MTDD
--- NOTE | 2021-09-06 14:38 | PN ---
09/02/2021: Level 5 09/03/2021: Intermediate 09/04/2021: Intermediate 09/05/2021: D as in discharge MTDD
--- NOTE | 2021-09-07 11:26 | HP ---
DATE OF SERVICE: 09/02/2021 REASON FOR HOSPITALIZATION/HISTORY OF PRESENT ILLNESS: 66 year old white female who presents to the emergency room complaining of shortness of breath, coughing and wheezing for 2-3 days. She has been using oxygen at home. She has no known COVID exposure. PAST MEDICAL HISTORY: History of PE DVT on Xarelto History of recurrent pyelonephritis Non-compliance with medications, diet, lifestyle and folllow-up Coronary artery disease Hyperglycemia Chronic kidney disease stage II Chronic constipation Overactive bladder Depression Dyslipidemia History of elevated liver function Chronic anemia Anxiety PAST SURGICAL HISTORY: Both right and left trigger fingers repair C spine surgery Left foot surgery Heart Cath 05/02 with stent Right total knee replacement REVIEW OF SYSTEMS: CONSTITUTIONAL: No night sweats. Fatigue. No fever or chills. HEENT: Eyes: No visual changes. No eye pain. No eye discharge. ENT: No runny nose. No epistaxis. No sinus pain. No sore throat. No odynophagia. No ear pain. No congestion. RESPIRATORY: Cough, no congestion. Wheezing. No hemoptysis. Shortness of breath. CARDIOVASCULAR: No angina symptoms. No CHF symptoms. No atypical chest pain for CAD. No palpitations. No PND. No orthopnea. GASTROINTESTINAL: No abdominal pain. No nausea or vomiting. No diarrhea or constipation. No hematemesis. No hematochezia. GENITOURINARY: No urgency. No frequency. No dysuria. No hematuria. No obstructive symptoms. No discharge. No pain. No significant abnormal bleeding. MUSCULOSKELETAL: No musculoskeletal pain. No joint swelling. No arthritis. NEUROLOGICAL: No headache. No neck pain. No syncope. No seizures. No dizziness. PSYCHIATRIC: Not anxious. No depression. No suicidal thoughts. No homicidal thoughts. SKIN: No rash. No lesions. No wounds. ENDOCRINE: No unexplained weight loss. No weight gain. HEMATOLOGIC/LYMPHATIC: No anemia. No purpura. No petechiae. No prolonged or excessive bleeding. No palpable lymph nodes. PERSONAL/FAMILY/SOCIAL HISTORY: Non-smoker. No alcohol or illicit drug use. She lives a lone. MEDICATIONS: Xarelto 20mg PO daily Celexa 40mg PO daily Levothyroxine 50mcg PO daily Nitroglycerin 0.4mg SUBLINGUAL Q 5-15 minutes PRN Diltiazem HCL 30mg PO BID Tramadol 50mg PO BID Aspirin 81mg PO daily Acid controller 40mg PO daily Rosuvastatin 40mg PO daily Lorazepam 1mg PO BID ALLERGIES: Venom Honey bee PHYSICAL EXAMINATION: VITAL SIGNS: Temperature 97, heart rate 78, respiratory rate 22, blood pressure 147/84 and pulse ox 94% on 2 liters. HEENT: Head normocephalic, atraumatic. Eyes: Extraocular muscles are intact. Pupils are equal, round and reactive to light and accommodation. Ears: No lesions. Nose appeared normal. Throat: No exudate or erythema. NECK: Supple. No JVD, no carotid bruit. No lymphadenopathy or thyromegaly. LUNGS: Diminished breath sounds with bilateral inspiratory and expiratory wheezing. Clear to auscultation. Percussion note normal. Chest symmetrical. HEART: S1, S2, no S3. No murmur. No cyanosis or clubbing. No ascites. Pulses: Dorsalis pedis and posterior tibial pulses +1 to +2 bilaterally. ABDOMEN: Soft. Nontender. Bowel sounds active. No CVA tenderness. No mass felt. EXTREMITIES: No edema. Full range of motion of all extremities, equal. NEUROLOGIC: No focal deficit. Cranial nerves II through XII are grossly intact. No headache, no double vision or headache. SKIN: Not dry. Intact. Turgor - normal. LYMPHATIC: No palpable lymph nodes/no lymphedema. MUSCULOSKELETAL: Normal joints with no swelling. Muscle tone is normal. LABS: Respiratory panel by PCR is positive for rhino enterovirus. Chest x-ray shows no acute process. ABG on 2 liters saturation 93%, pH 7.35, pCO2 44, pO2 71, bicarb 1.8, sodium 142, potassium 4.1, glucose 134, BUN 8.3, creatinine 0.75, AST 46, ALT 45. Alkaline phosphatase 153, WBC 6.3, hgb 12.6, hct 39.3, plt count 199. U/A showed 3+ bacteria. ASSESSMENT: 1. Shortness of breath 2. Acute bronchitis 3. Positive Enterovirus 4. UTI, Culture pending PLAN: 1. We will admit 2. Routine telemetry orders 3. CBC and CMP daily 4. Start Rocephin 1 gram IV daily 5. Zithromax 500mg PO Daily times three days 6. Solu-Cortef 125mg IV Q 8 hours 7. Oxygen at 2-3 liters via nasal canula. 8. DUO NEB nebulizer treatments TID scheduled. 9. Continue all home medications 10.Urine culture 11.Regular diet We will follow closely. TIME SPENT: More than 70 minutes. MTDD
== END 2021-09-05 13:15 | disposition home or self-care (01) | DRG 191 ==
LOC: ED 08:42 → MEDSURG A 11:46
PROVIDERS: ADMIT Internal Medicine; ATTEND Internal Medicine
DX: B96.20 Unspecified Escherichia coli [E. coli] as the cause of diseases classified elsewhere; F32.A Depression, unspecified; J44.1 Chronic obstructive pulmonary disease with (acute) exacerbation; Z20.822 Contact with and (suspected) exposure to COVID-19; I10 Essential (primary) hypertension; Z99.81 Dependence on supplemental oxygen; J45.901 Unspecified asthma with (acute) exacerbation; R73.9 Hyperglycemia, unspecified; D64.9 Anemia, unspecified; N18.2 Chronic kidney disease, stage 2 (mild); I25.10 Atherosclerotic heart disease of native coronary artery without angina pectoris; E78.5 Hyperlipidemia, unspecified; Z79.899 Other long term (current) drug therapy; N39.0 Urinary tract infection, site not specified; Z86.711 Personal history of pulmonary embolism; E03.9 Hypothyroidism, unspecified